=== PATIENT | female | born 1980 | race Caucasian/White ===

== ENCOUNTER 2017-09-05 16:17 | Inpatient (IN) | payer OTHER ==
[2017-09-05 17:23] VITALS: BMI 22.6
--- NOTE | 2017-09-05 18:57 | HP ---
CIWA Score - CIWA Score Nausea/Vomitin Muscle Tremors: 4-Moderate,w/Arms Extend Anxiety: 3 Agitation: 3 Paroxysmal Sweats: 1-Minimal Palms Moist Orientation: 0-Oriented Tacttile Disturbances: 0-None Auditory Disturbances: 0-None Visual Disturbances: 0-None Headache: 1-Very Mild CIWA-Ar Total Score: 14 Admission ROS S - HPI Chief Complaint: WITHDRAWAL SX Allergies/Adverse Reactions: Allergies Allergy/AdvReac Type Severity Reaction Status Date / Time No Known Allergies Allergy Verified 09/05/17 17:26 History of Present Illness: 37 YEARS OLD FEMALE WITH LONG HISTORY OF ALCOHOL, NICOTINE XANAX DEPENDENCE ON METHADONE 80 MG DAILY GERD AND DEPRESSION IS ADMITTED TO DETOX Exam Limitations: No Limitations - Ebola screening Have you traveled outside of the country in the last 21 days: No Have you had contact with anyone from an Ebola affected area: No Have you been sick,other than usual withdrawal symptoms: No Do you have a fever: No - Review of Systems Constitutional: Loss of Appetite, Changes in sleep, Unintentional Wgt. Loss EENT: reports: No Symptoms Reported Respiratory: reports: No Symptoms reported Cardiac: reports: No Symptoms Reported GI: reports: Nausea, Poor Appetite, Poor Fluid Intake, Vomiting, Indigestion, Abdominal cramping : reports: No Symptoms Reported Musculoskeletal: reports: No Symptoms Reported Integumentary: reports: No Symptoms Reported Neuro: reports: Tremors Endocrine: reports: No Symptoms Reported Hematology: reports: No Symptoms Reported Psychiatric: reports: Judgement Intact, Orientated x3, Anxious, Depressed Other Systems: Reviewed and Negative Patient History - Patient Medical History Hx Anemia: No Hx Asthma: No Hx Chronic Obstructive Pulmonary Disease (COPD): No Hx Cancer: No Hx Cardiac Disorders: No Hx Congestive Heart Failure: No Hx Hypertension: No Hx Hypercholesterolemia: No Hx Pacemaker: No HX Cerebrovascular Accident: No Hx Seizures: No Hx Dementia: No Hx Diabetes: No Hx Gastrointestinal Disorders: Yes Hx Liver Disease: No Hx Genitourinary Disorders: No Hx Sexually Transmitted Disorders: No Hx Renal Disease (ESRD): No Hx Thyroid Disease: No Hx Human Immunodeficiency Virus (HIV): No Hx Hepatitis C: Yes Hx Depression: Yes Hx Suicide Attempt: No Hx Bipolar Disorder: No Hx Schizophrenia: No - Patient Surgical History Past Surgical History: Yes Hx Neurologic Surgery: No Hx Cataract Extraction: No Hx Cardiac Surgery: No Hx Lung Surgery: No Hx Breast Surgery: No Hx Breast Biopsy: No Hx Abdominal Surgery: Yes (03/2017 ) Hx Appendectomy: No Hx Cholecystectomy: Yes Hx Genitourinary Surgery: No Hx Section: No Hx Orthopedic Surgery: No Hx Hysterectomy: No Anesthesia Reaction: No - PPD History Previous Implant?: Yes Documented Results: Negative w/o proof Implanted On Prior [facility] Admission?: No PPD to be Administered?: Yes - Reproductive History Patient is a Female of Child Bearing Age (11 -55 yrs old): Yes Last Menstrual Period: 08/17/17 Patient : No - Smoking Cessation Smoking history: Current every day smoker Have you smoked in the past 12 months: Yes Aproximately how many cigarettes per day: 20 Cigars Per Day: 0 Hx Chewing Tobacco Use: No Initiated information on smoking cessation: Yes 'Breaking Loose' booklet given: 09/05/17 - Substance & Tx. History Hx Alcohol Use: Yes Hx Substance Use: Yes Substance Use Type: Alcohol, Cocaine, Heroin Hx Substance Use Treatment: Yes (06/2017 [facility]) - Substances Abused Alcohol Route: Oral Frequency: Daily Amount used: liquor- 1 pint, beer- 2 six packs Age of first use: 16 Date of Last Use: 09/05/17 Alprazolam (Xanax) Route: Oral Frequency: Daily Amount used: 6mg Age of first use: 30 Date of Last Use: 09/05/17 Family Disease History - Family Disease History Family Disease History: Other: Sister (NO SISTER) Admission Physical Exam BHS - Vital Signs Vital Signs: Vital Signs - 24 hr 09/05/17 17:20 Temperature 97.4 F L Pulse Rate 184 H Respiratory 20 Rate Blood Pressure 134/80 - Physical General Appearance: Yes: Appropriately Dressed, Mild Distress, Thin, Tremorous, Irritable, Sweating, Anxious HEENTM: Yes: Hearing grossly Normal, Normal ENT Inspection, Normocephalic, Normal Voice Respiratory: Yes: Chest Non-Tender, Lungs Clear, Normal Breath Sounds, No Respiratory Distress, No Accessory Muscle Use Neck: Yes: Supple, Trachea in good position Breast: Yes: Breasts Symetrical Cardiology: Yes: Regular Rhythm, Regular Rate, S1, S2 Abdominal: Yes: Non Tender, Soft, Increased Bowel Sounds Genitourinary: Yes: Within Normal Limits Back: Yes: Normal Inspection Musculoskeletal: Yes: full range of Motion, Gait Steady Extremities: Yes: Normal Range of Motion, Non-Tender, Tremors Neurological: Yes: Fully Oriented, Alert, Motor Strength 5/5, Normal Response, Depressed Affect Integumentary: Yes: Warm, Track Valentino Lymphatic: Yes: Within Normal Limits - Diagnostic (1) Alcohol dependence with uncomplicated withdrawal Current Visit: Yes Status: Acute (2) Methadone maintenance therapy patient Current Visit: Yes Status: Chronic Comment: 80 MG VERIFICATION PENDING (3) Chronic pain Current Visit: Yes Status: Chronic Qualifiers: Chronic pain type: due to trauma Qualified Code(s): G89.21 - Chronic pain due to trauma (4) Nicotine dependence Current Visit: Yes Status: Acute Qualifiers: Nicotine product type: cigarettes Substance use status: in withdrawal Qualified Code(s): F17.213 - Nicotine dependence, cigarettes, with withdrawal (5) GERD (gastroesophageal reflux disease) Current Visit: Yes Status: Chronic Qualifiers: Esophagitis presence: without esophagitis Qualified Code(s): K21.9 - Gastro -esophageal reflux disease without esophagitis (6) Weight loss Current Visit: Yes Status: Acute (7) Depression (emotion) Current Visit: Yes Status: Suspected Qualifiers: Depression Type: dysthymia Qualified Code(s): F34.1 - Dysthymic disorder (8) Sedative, hypnotic or anxiolytic dependence with withdrawal, uncomplicated Current Visit: Yes Status: Acute Cleared for Admission [facility] - Detox or Rehab [facility] Level of Care: Medically Managed Detox Regimen/Protocol: Librium [facility] Breath Alcohol Content Breath Alcohol Content: 0 Urine Pregancy Test - Result Urine Test Results: Negative- NO Line Present Urine Drug Screen - Results Drug Screen Negative: No Urine Drug Screen Results: SWETHA-Cocaine, MTD-Methadone, TCA-Tricyclic Antidepress
[2017-09-05] MEDS ORDERED: MAG HYDROX/AL HYDROX/SIMETH 30 ML UNIT-DOSE CUP PO PRN (19:00)
[2017-09-05] MEDS ORDERED: MENTHOL/PHENOL 1 EACH UD MM PRN (19:00)
[2017-09-05] MEDS ORDERED: MAGNESIUM HYDROX 2400MG/30ML ORAL SUSPENSION 30 ML CUP PO PRN (19:00)
[2017-09-05] MEDS ORDERED: MAGNESIUM CITRATE 300 ML BOTTLE PO PRN (19:00)
[2017-09-05] MEDS ORDERED: P-EPHED 60MG/TRIPROLIDI 2.5MG TABLET PO PRN (19:00)
[2017-09-05] MEDS: RANITIDINE HCL 150 MG TABLET (FP) PO SCH ×2 (20:20→22:21)
[2017-09-05] MEDS: chlordiazePOXIDE HCL 25 MG CAPSULE PO PRN (20:20)
[2017-09-05] MEDS ORDERED: hydrOXYzine PAMOATE 50 MG CAPSULE (FP) PO ONE (22:00)
[2017-09-05] MEDS: GABAPENTIN 400 MG CAPSULE (FP) PO SCH (22:20)
[2017-09-05] MEDS: chlordiazePOXIDE HCL 25 MG CAPSULE PO SCH (22:20)
[2017-09-05] MEDS: THIAMINE HCL 100 MG TABLET (FP) PO SCH (22:21)
[2017-09-05 23:44] LABS: URINE APPEARANCE SLCLOUDY; URINE BILIRUBIN NEGATIVE (NEGATIVE); URINE BLOOD NEGATIVE (NEGATIVE); URINE COLOR DKYELLOW; URINE GLUCOSE (UA) NEGATIVE (NEGATIVE); URINE KETONE TRACE (NEGATIVE); URINE NITRITE NEGATIVE (NEGATIVE); URINE PROTEIN NEGATIVE (NEGATIVE); URINE UROBILINOGEN 4.0 E.U/dl mg/dL (0.2-1.0)
[2017-09-06] MEDS: chlordiazePOXIDE HCL 25 MG CAPSULE PO PRN ×2 (02:49→14:36)
[2017-09-06] MEDS: LOPERAMIDE HCL 2 MG CAPSULE PO PRN ×2 (05:43→13:19)
[2017-09-06] MEDS: GABAPENTIN 400 MG CAPSULE (FP) PO SCH ×3 (05:45→22:09)
[2017-09-06] MEDS: chlordiazePOXIDE HCL 25 MG CAPSULE PO SCH ×4 (05:45→22:09)
[2017-09-06] MEDS: METHADONE HCL 40 MG DISPERSABLE TABLET PO SCH (07:53)
[2017-09-06] MEDS: guaiFENesin/D-METHORPHAN HB 10 ML UNIT-DOSE CUPS PO PRN (08:50)
[2017-09-06 10:11] LABS: MCH 23.9 pg (25.7-33.7); MCHC 31.5 g/dl (32.0-36.0); MEAN CELL VOLUME 75.7 fl (80-96); MEAN PLT VOLUME 8.2 fl (7.5-11.1); PLATELET COUNT 225 K/MM3 (134-434); RDW 20.5 % (11.6-15.6); WHITE BLOOD COUNT 4.6 K/mm3 (4.0-10.0)
[2017-09-06 10:17] LABS: ALBUMIN 2.6 g/dl (3.4-5.0); ANION GAP 6 (8-16); BILIRUBIN,TOTAL 0.4 mg/dL (0.2-1.0); CALCIUM 7.4 mg/dL (8.5-10.1); CO2 25 mmol/L (21-32); CREATININE 0.7 mg/dL (0.55-1.02); GLUCOSE,RANDOM 69 mg/dL (74-106); SGOT/AST 59 U/L (15-37); SGPT/ALT 49 U/L (12-78); TOT PROT 6.2 g/dl (6.4-8.2)
[2017-09-06 10:18] LABS: ALK PHOS 136 U/L (45-117)
--- NOTE | 2017-09-06 10:18 | EKG ---
Test Reason : Blood Pressure : / mmHG Vent. Rate : 080 BPM Atrial Rate : 080 BPM P-R Int : 142 ms QRS Dur : 072 ms QT Int : 406 ms P-R-T Axes : 017 032 015 degrees QTc Int : 468 ms NORMAL SINUS RHYTHM NORMAL ECG NO PREVIOUS ECGS AVAILABLE Confirmed by KELLY TOSCANO, CESAR ([id number]) on 09/06/2017 10:18:27 AM Referred By: Confirmed By:CESAR MENDOZA MD
--- NOTE | 2017-09-06 10:45 | PN ---
[facility] CIWA - CIWA Score Nausea/Vomitin-No Nausea/No Vomiting Muscle Tremors: 4-Moderate,w/Arms Extend Anxiety: 3 Agitation: 3 Paroxysmal Sweats: 3 Orientation: 0-Oriented Tacttile Disturbances: 0-None Auditory Disturbances: 0-None Visual Disturbances: 0-None Headache: 1-Very Mild CIWA-Ar Total Score: 14 S Progress Note (SOAP) Subjective: irritable agitation anxiety sweats nausea interrupted sleep Objective: 09/06/17 10:43 Vital Signs Temperature 98.6 F 09/06/17 06:00 Pulse Rate 98 H 09/06/17 06:00 Respiratory Rate 16 09/06/17 06:00 Blood Pressure 116/79 09/06/17 06:00 O2 Sat by Pulse Oximetry (%) Laboratory Tests 09/05/17 09/06/17 09/06/17 23:30 07:00 07:00 WBC 4.6 RBC 4.05 Hgb 9.7 L Hct 30.7 L MCV 75.7 L MCH 23.9 L MCHC 31.5 L RDW 20.5 H Plt Count 225 MPV 8.2 Sodium 137 Potassium 4.0 Chloride 106 Carbon Dioxide 25 Anion Gap 6 L BUN 9 Creatinine 0.7 Creat Clearance w eGFR > 60 Random Glucose 69 L Calcium 7.4 L Total Bilirubin 0.4 AST 59 H ALT 49 Alkaline Phosphatase 136 H Total Protein 6.2 L Albumin 2.6 L Urine Color Dkyellow Urine Appearance Slcloudy Urine pH 6.0 Ur Specific [place] 1.018 Urine Protein Negative Urine Glucose (UA) Negative Urine Ketones Trace H Urine Blood Negative Urine Nitrite Negative Urine Bilirubin Negative Urine Urobilinogen 4.0 e.u/dl H aaox3 ambulating no acute distress Assessment: 09/06/17 10:44 withdrawal sx Plan: continue detox increase fluids zofran sl prn
[2017-09-06] MEDS: RANITIDINE HCL 150 MG TABLET (FP) PO SCH ×2 (11:04→22:10)
[2017-09-06] MEDS: PRENATAL VITAMINS W/ FOLIC ACID TABLET (FP) PO SCH (11:04)
[2017-09-06] MEDS: NICOTINE 21 MG/24 HOURS TOPICAL PATCH TD SCH (11:04)
[2017-09-06 11:40] LABS: URINE LEUK ESTERASE Negative (NEGATIVE)
[2017-09-06] MEDS: ONDANSETRON *ODT* 4 MG TABLET SL PRN ×2 (12:20→22:10)
--- NOTE | 2017-09-06 15:54 | CONSULT ---
[facility] Psychiatric Consult - Data Date of interview: 09/06/17 Admission source: [facility] Identifying data: First admission to [facility] for this 37 y/o female seeking detox treatment on for alcohol,xanax,cocaine and heroin dependence.Patient is single,mother of one,homeless,unemployed and deprived of any source of income. Substance Abuse History: Discussed in this session.Patient admits to active use of xanax,heroin,cocaine and alcoho as detailed in the [facility] report.Details as follws : Smoking history: Current every day smoker. Have you smoked in the past 12 months: Yes. Aproximately how many cigarettes per day: 20. Cigars Per Day: 0. Hx Chewing Tobacco Use: No. Initiated information on smoking cessation : Yes. 'Breaking Loose' booklet given: 09/05/17. - Substance & Tx. History. Hx Alcohol Use: Yes. Hx Substance Use: Yes. Substance Use Type: Alcohol, Cocaine, Heroin. Hx Substance Use Treatment: Yes ([facility] - Substances Abused. Alcohol. Route: Oral. Frequency: Daily. Amount used: liquor- 1 pint, beer- 2 six packs. Age of first use: 16. Date of Last Use: . Alprazolam (Xanax). Route: Oral. Frequency: Daily. Amount used: 6mg. Age of first use: 30. Date of Last Use: 09/05/17 Medical History: Consistent with GERD,hepatitis C and a past history of abdominal surgery. Psychiatric History: Patient admits to a history of multiple psychiatric hospitalizations ([facility]).Diagnosed with Bipolar Disorder as per self-report.Prescribed celexa 40 mg/day + seroquel 300 mg/hs.Non-adherent with OPD care.Ms Paz declares that she has NOT taken her medications for more than three weeks." I am homeless and I keep on bouncing from place to place." No affiliation with outpatient mental healthcare providers." They referred me to someone.I never went." Patient denies history of suicide attempts.Currently on methadone maintenance (80 mg/day). Physical/Sexual Abuse/Trauma History: Domain not discussed in this session. Additional Comment: Urine Drug Screen Results: SWETHA-Cocaine, MTD-Methadone, TCA- Tricyclic Antidepressant.Noted. Mental Status Exam - Mental Status Exam Alert and Oriented to: Time, Place, Person Cognitive Function: Good Patient Appearance: Well Groomed (appears stated age) Mood: Nervous, Anxious Affect: Mood Congruent Patient Behavior: Fatigued, Cooperative (medication-seeking) Speech Pattern: Clear, Appropriate Voice Loudness: Normal Thought Process: Goal Oriented Thought Disorder: Not Present Hallucinations: Denies Suicidal Ideation: Denies Homicidal Ideation: Denies Insight/Judgement: Poor Sleep: Poorly, Difficulty falling asleep Appetite: Good Muscle strength/Tone: Normal Gait/Station: Normal Psychiatric Findings - Problem List ([place] 1, 2,3) (1) Alcohol dependence with uncomplicated withdrawal Current Visit: Yes Status: Acute (2) Opioid dependence on agonist therapy Current Visit: Yes Status: Acute (3) Nicotine dependence Current Visit: Yes Status: Acute Qualifiers: Nicotine product type: cigarettes Substance use status: uncomplicated Qualified Code(s): F17.210 - Nicotine dependence, cigarettes, uncomplicated (4) Cocaine dependence Current Visit: Yes Status: Acute (5) Substance induced mood disorder Current Visit: Yes Status: Acute (6) Bipolar disorder Current Visit: Yes Status: Chronic Comment: As per self-report.On medications.Non-compliant with OPD care. (7) Insomnia Current Visit: Yes Status: Acute - Initial Treatment Plan Initial Treatment Plan: Psychoeducation.Sleep hygiene.Detoxification in progress.Medications discussed.Will NOT restart citalopram (non-adherence for weeks and potential for rapid cycling).Seroquel 150 mg po hs.To be gradually titrated to 300 mg in next 48-72 hours according to clinical response.Side effects/benefits reviewed with the patient.Made aware of potential for oversedation/falls,metabolic syndrome,cardiovascular adverse events and abnormal involuntary movements.Patient agrees,verbally,to follow this plan of care.Observation.Pharmacy claims are reviewed : noted scripts for seroquel 300 mg tab # 15 and citalopram 40 mg issued on 08/15/17 (not taken according to patient).
[2017-09-06] MEDS ORDERED: DIPHENOXYLATE 2.5/ATROPINE.025 1 COMBO TABLET PO PRN (17:10)
[2017-09-06] MEDS ORDERED: DIPHENOXYLATE 2.5/ATROPINE.025 1 COMBO TABLET PO ONE (17:30)
[2017-09-06] MEDS: THIAMINE HCL 100 MG TABLET (FP) PO SCH (22:10)
[2017-09-06] MEDS: QUEtiapine FUMARATE 50 MG TABLET PO SCH (22:10)
[2017-09-07] MEDS: chlordiazePOXIDE HCL 25 MG CAPSULE PO SCH ×3 (05:34→17:11)
[2017-09-07] MEDS: METHADONE HCL 40 MG DISPERSABLE TABLET PO SCH (05:35)
[2017-09-07] MEDS: GABAPENTIN 400 MG CAPSULE (FP) PO SCH ×3 (05:35→22:20)
[2017-09-07] MEDS: guaiFENesin/D-METHORPHAN HB 10 ML UNIT-DOSE CUPS PO PRN (10:46)
[2017-09-07] MEDS: RANITIDINE HCL 150 MG TABLET (FP) PO SCH ×2 (10:46→22:20)
[2017-09-07] MEDS: NICOTINE 21 MG/24 HOURS TOPICAL PATCH TD SCH (10:46)
[2017-09-07] MEDS: PRENATAL VITAMINS W/ FOLIC ACID TABLET (FP) PO SCH (10:46)
--- NOTE | 2017-09-07 13:21 | PN ---
S CIWA - CIWA Score Nausea/Vomitin-No Nausea/No Vomiting Muscle Tremors: 4-Moderate,w/Arms Extend Anxiety: 3 Agitation: 3 Paroxysmal Sweats: 3 Orientation: 0-Oriented Tacttile Disturbances: 0-None Auditory Disturbances: 0-None Visual Disturbances: 0-None Headache: 0-None Present CIWA-Ar Total Score: 13 BHS Progress Note (SOAP) Subjective: coughing sweats irritable agitation Objective: 09/07/17 13:20 Vital Signs Temperature 97.7 F 09/07/17 10:00 Pulse Rate 93 H 09/07/17 10:00 Respiratory Rate 18 09/07/17 10:00 Blood Pressure 134/95 09/07/17 10:00 O2 Sat by Pulse Oximetry (%) Laboratory Tests 09/05/17 09/06/17 09/06/17 23:30 07:00 07:00 WBC 4.6 RBC 4.05 Hgb 9.7 L Hct 30.7 L MCV 75.7 L MCH 23.9 L MCHC 31.5 L RDW 20.5 H Plt Count 225 MPV 8.2 Sodium 137 Potassium 4.0 Chloride 106 Carbon Dioxide 25 Anion Gap 6 L BUN 9 Creatinine 0.7 Creat Clearance w eGFR > 60 Random Glucose 69 L Calcium 7.4 L Total Bilirubin 0.4 AST 59 H ALT 49 Alkaline Phosphatase 136 H Total Protein 6.2 L Albumin 2.6 L Urine Color Dkyellow Urine Appearance Slcloudy Urine pH 6.0 Ur Specific [place] 1.018 Urine Protein Negative Urine Glucose (UA) Negative Urine Ketones Trace H Urine Blood Negative Urine Nitrite Negative Urine Bilirubin Negative Urine Urobilinogen 4.0 e.u/dl H Ur Leukocyte Esterase Negative RPR Titer 09/06/17 07:00 WBC RBC Hgb Hct MCV MCH MCHC RDW Plt Count MPV Sodium Potassium Chloride Carbon Dioxide Anion Gap BUN Creatinine Creat Clearance w eGFR Random Glucose Calcium Total Bilirubin AST ALT Alkaline Phosphatase Total Protein Albumin Urine Color Urine Appearance Urine pH Ur Specific [place] Urine Protein Urine Glucose (UA) Urine Ketones Urine Blood Urine Nitrite Urine Bilirubin Urine Urobilinogen Ur Leukocyte Esterase RPR Titer Nonreactive aaox3 ambulating no acute distress Assessment: 09/07/17 13:20 withdrawal sx Plan: continue detox increase fluids robitussin prn visitril prn
[2017-09-07] MEDS: chlordiazePOXIDE HCL 25 MG CAPSULE PO PRN (14:19)
[2017-09-07] MEDS: ONDANSETRON *ODT* 4 MG TABLET SL PRN (15:13)
[2017-09-07] MEDS: hydrOXYzine PAMOATE 25 MG CAPSULE (FP) PO PRN ×2 (15:13→19:25)
[2017-09-07] MEDS: NICOTINE POLACRILEX 4 MG GUM BC PRN (15:13)
[2017-09-07] MEDS: chlordiazePOXIDE 5 MG CAPSULE PO SCH (22:20)
[2017-09-07] MEDS: QUEtiapine FUMARATE 50 MG TABLET PO SCH (22:20)
[2017-09-07] MEDS: THIAMINE HCL 100 MG TABLET (FP) PO SCH (22:20)
[2017-09-08] MEDS: METHADONE HCL 40 MG DISPERSABLE TABLET PO SCH (05:17)
[2017-09-08] MEDS: GABAPENTIN 400 MG CAPSULE (FP) PO SCH ×3 (05:17→22:21)
[2017-09-08] MEDS: chlordiazePOXIDE 5 MG CAPSULE PO SCH ×3 (05:17→17:20)
[2017-09-08] MEDS: guaiFENesin/D-METHORPHAN HB 10 ML UNIT-DOSE CUPS PO PRN (06:31)
[2017-09-08] MEDS: RANITIDINE HCL 150 MG TABLET (FP) PO SCH ×2 (10:20→22:21)
[2017-09-08] MEDS: PRENATAL VITAMINS W/ FOLIC ACID TABLET (FP) PO SCH (10:20)
[2017-09-08] MEDS: NICOTINE 21 MG/24 HOURS TOPICAL PATCH TD SCH (10:22)
[2017-09-08] MEDS: ACETAMINOPHEN 325 MG TABLET (FP) PO PRN ×2 (10:44→19:33)
[2017-09-08] MEDS: hydrOXYzine PAMOATE 25 MG CAPSULE (FP) PO PRN ×3 (12:51→22:23)
--- NOTE | 2017-09-08 13:13 | PN ---
BHS Progress Note (SOAP) Subjective: sweats interrupted sleep Objective: 09/08/17 13:12 Vital Signs Temperature 97.2 F L 09/08/17 09:33 Pulse Rate 91 H 09/08/17 09:33 Respiratory Rate 18 09/08/17 09:33 Blood Pressure 98/51 09/08/17 09:33 O2 Sat by Pulse Oximetry (%) aaox3 ambulating no acute distress Assessment: 09/08/17 13:12 withdrawal sx Plan: continue detox increase fluids d/c in am
[2017-09-08] MEDS: NICOTINE POLACRILEX 4 MG GUM BC PRN (19:31)
[2017-09-08] MEDS: THIAMINE HCL 100 MG TABLET (FP) PO SCH (22:21)
[2017-09-08] MEDS: QUEtiapine FUMARATE 50 MG TABLET PO SCH (22:21)
[2017-09-08] MEDS: chlordiazePOXIDE HCL 10 MG CAPSULE PO SCH (22:21)
[2017-09-09] MEDS: chlordiazePOXIDE HCL 10 MG CAPSULE PO SCH ×2 (05:14→10:13)
[2017-09-09] MEDS: METHADONE HCL 40 MG DISPERSABLE TABLET PO SCH (05:14)
[2017-09-09] MEDS: GABAPENTIN 400 MG CAPSULE (FP) PO SCH (05:14)
[2017-09-09] MEDS: PRENATAL VITAMINS W/ FOLIC ACID TABLET (FP) PO SCH (09:24)
[2017-09-09] MEDS: RANITIDINE HCL 150 MG TABLET (FP) PO SCH (09:24)
[2017-09-09] MEDS: NICOTINE 21 MG/24 HOURS TOPICAL PATCH TD SCH (09:24)
[2017-09-09 10:06] VITALS: BP 115/58; PULSE 92; TEMP 98.2
[2017-09-09] MEDS: hydrOXYzine PAMOATE 25 MG CAPSULE (FP) PO PRN (10:12)
[2017-09-09] MEDS ORDERED: FERROUS SO4 325 MG TABLET (FP) PO SCH (12:00)
[2017-09-09] MEDS ORDERED: DOCUSATE SODIUM 100 MG CAPSULE (FP) PO SCH (22:00)
== END 2017-09-09 11:45 | disposition home or self-care (01) | DRG 773 ==
LOC: YASAS 16:17 → Y6N 18:52
PROVIDERS: ADMIT Internal Medicine; ATTEND Internal Medicine
PROC: HZ2ZZZZ Detoxification Services for Substance Abuse Treatment (ICD-10-PCS; principal; 2017-09-05)
DX: F11.20 Opioid dependence, uncomplicated (principal); F13.230 Sedative, hypnotic or anxiolytic dependence with withdrawal, uncomplicated; F10.230 Alcohol dependence with withdrawal, uncomplicated; F14.20 Cocaine dependence, uncomplicated; F17.210 Nicotine dependence, cigarettes, uncomplicated; F19.24 Other psychoactive substance dependence with psychoactive substance-induced mood disorder; F34.1 Dysthymic disorder; F31.89 Other bipolar disorder; G47.00 Insomnia, unspecified; R63.4 Abnormal weight loss; Z68.22 Body mass index [BMI] 22.0-22.9, adult; Z90.49 Acquired absence of other specified parts of digestive tract
CPT/HCPCS: 36415; 80053; 81003; 85027; 86593; 93005; 93010

== ENCOUNTER 2017-11-14 19:32 | Inpatient (IN) | payer BC, OTHER ==
[2017-11-14 20:24] VITALS: BMI 21.7
--- NOTE | 2017-11-14 22:56 | HP ---
CIWA Score - CIWA Score Nausea/Vomitin Muscle Tremors: 3 Anxiety: 3 Agitation: 1-Slight > Activity Paroxysmal Sweats: 2 Orientation: 0-Oriented Tacttile Disturbances: 1-Very Mild Itch/Numbness Auditory Disturbances: 0-None Visual Disturbances: 1-Very Mild Sensitivity Headache: 0-None Present CIWA-Ar Total Score: 14 Admission [facility] Chief Complaint: withdrawal symptoms Allergies/Adverse Reactions: Allergies Allergy/AdvReac Type Severity Reaction Status Date / Time No Known Allergies Allergy Verified 11/14/17 21:13 History of Present Illness: 37 yo female with hx of Klonopin, Xanax, Cocaine, nicotine and opiod dependence. Reports smoking cigarettes since age 15, currently smokes 1 pack per day. Patient currently attends out patient Methadone maintenance program at [facility] [address], currently on 80 mg of Methadone, last medicated 11/14/17. PMHX : chronic pain, gastric bypass, haital hernia repair , bowel obstruction, depression, and anxiety. Denies suicidal / homicidal ideation or suicide attempts. Last detox August 2017 at [facility]. Exam Limitations: No Limitations - Ebola screening Have you traveled outside of the country in the last 21 days: No Have you had contact with anyone from an Ebola affected area: No Have you been sick,other than usual withdrawal symptoms: No Do you have a fever: Yes - Review of Systems Constitutional: Chills, Changes in sleep EENT: reports: No Symptoms Reported Respiratory: reports: No Symptoms reported Cardiac: reports: No Symptoms Reported GI: reports: Nausea, Poor Fluid Intake, Indigestion : reports: No Symptoms Reported Musculoskeletal: reports: No Symptoms Reported Integumentary: reports: No Symptoms Reported Neuro: reports: Seizure (hx of seizure with Benzo withdrawal , last sezure 1 year ago) Endocrine: reports: Excessive Sweating, Increased Thirst Hematology: reports: Anemia (hx of blood transfusion) Psychiatric: reports: Orientated x3, Anxious Other Systems: Reviewed and Negative Patient History - Patient Medical History Hx Anemia: Yes Hx Asthma: No Hx Chronic Obstructive Pulmonary Disease (COPD): No Hx Cancer: No Hx Cardiac Disorders: No Hx Congestive Heart Failure: No Hx Hypertension: No Hx Hypercholesterolemia: No Hx Pacemaker: No HX Cerebrovascular Accident: No Hx Seizures: Yes (1 year ago with Benzo withdrawal ) Hx Dementia: No Hx Diabetes: No Hx Gastrointestinal Disorders: Yes Hx Liver Disease: No Hx Genitourinary Disorders: No Hx Sexually Transmitted Disorders: No Hx Renal Disease (ESRD): No Hx Thyroid Disease: No Hx Human Immunodeficiency Virus (HIV): No (Negative 2 months ago ) Hx Hepatitis C: Yes Hx Depression: Yes Hx Suicide Attempt: No Hx Bipolar Disorder: No Hx Schizophrenia: No - Patient Surgical History Past Surgical History: Yes Hx Neurologic Surgery: No Hx Cataract Extraction: No Hx Cardiac Surgery: No Hx Lung Surgery: No Hx Breast Surgery: No Hx Breast Biopsy: No Hx Abdominal Surgery: Yes (03/2017 . Gastric bypass 2005) Hx Appendectomy: No Hx Cholecystectomy: Yes Hx Genitourinary Surgery: No Hx Section: Yes (2007) Hx Orthopedic Surgery: No Hx Hysterectomy: No Anesthesia Reaction: No - PPD History Previous Implant?: Yes Documented Results: Negative w/proof Date: 09/07/17 PPD to be Administered?: No - Reproductive History Patient is a Female of Child Bearing Age (11 -55 yrs old): No Last Menstrual Period: 08/17/17 Patient : No - Smoking Cessation Smoking history: Current every day smoker Have you smoked in the past 12 months: Yes Aproximately how many cigarettes per day: 20 Cigars Per Day: 0 Hx Chewing Tobacco Use: No Initiated information on smoking cessation: Yes 'Breaking Loose' booklet given: 11/14/17 - Substance & Tx. History Hx Alcohol Use: Yes Hx Substance Use: Yes Substance Use Type: Alcohol, Opiates, Tranquilizers Hx Substance Use Treatment: Yes - Substances Abused Alcohol Route: Oral Frequency: Daily Amount used: BEER- 2 SIX PACKS Age of first use: 16 Date of Last Use: 11/14/17 Family Disease History - Family Disease History Family Disease History: Other: Father (alive and well ), Mother (alive and well) , Sister (NO SISTER) Admission Physical Exam BHS - Vital Signs Vital Signs: Vital Signs - 24 hr 11/14/17 20:09 Temperature 97.7 F Pulse Rate 95 H Respiratory 18 Rate Blood Pressure 147/99 - Physical General Appearance: Yes: Disheveled, Tremorous, Sweating, Anxious HEENTM: Yes: EOMI, Hearing grossly Normal, Normal ENT Inspection, Normocephalic , Normal Voice, Pharynx Normal, Tm's normal, Other (poor dentation) Respiratory: Yes: Chest Non-Tender, Lungs Clear, Normal Breath Sounds, No Respiratory Distress, No Accessory Muscle Use Neck: Yes: Within Normal Limits, No masses,lesions,Nodules, Trachea in good position Breast: Yes: Breast Exam Deferred Cardiology: Yes: Within Normal Limits, Regular Rhythm, Regular Rate, S1, S2 Abdominal: Yes: Non Tender, Soft, Increased Bowel Sounds, Protuberent, Surgical Scar Genitourinary: Yes: Within Normal Limits (reports no urinary symptoms) Back: Yes: Normal Inspection Musculoskeletal: Yes: Within Normal Limits, full range of Motion, Gait Steady, Pelvis Stable Extremities: Yes: Within Normal Limits, Normal Capillary Refill, Normal Inspection Neurological: Yes: Fully Oriented, Alert, Motor Strength 5/5, Normal Response, Depressed Affect Integumentary: Yes: Normal Color, Dry, Warm, Other (poor skin turgor) Lymphatic: Yes: Within Normal Limits - Diagnostic (1) Alcohol dependence with uncomplicated withdrawal Current Visit: Yes Status: Acute (2) Cocaine dependence Current Visit: Yes Status: Chronic (3) Insomnia Current Visit: Yes Status: Chronic (4) Nicotine dependence Current Visit: Yes Status: Acute Qualifiers: Nicotine product type: cigarettes Substance use status: uncomplicated Qualified Code(s): F17.210 - Nicotine dependence, cigarettes, uncomplicated (5) Sedative, hypnotic or anxiolytic dependence with withdrawal, uncomplicated Current Visit: Yes Status: Chronic (6) Chronic pain Current Visit: Yes Status: Chronic Qualifiers: Chronic pain type: due to trauma Qualified Code(s): G89.21 - Chronic pain due to trauma (7) GERD (gastroesophageal reflux disease) Current Visit: Yes Status: Chronic Qualifiers: Esophagitis presence: without esophagitis Qualified Code(s): K21.9 - Gastro -esophageal reflux disease without esophagitis (8) Methadone maintenance therapy patient Current Visit: Yes Status: Chronic Comment: 80 MG VERIFICATION PENDING (9) Depression (emotion) Current Visit: Yes Status: Acute Qualifiers: Depression Type: dysthymia Qualified Code(s): F34.1 - Dysthymic disorder Cleared for Admission [facility] - Detox or Rehab [facility] Level of Care: Medically Managed Detox Regimen/Protocol: Librium [facility] Breath Alcohol Content Breath Alcohol Content: 0.165 Urine Pregancy Test - Result Urine Test Results: Negative- NO Line Present Urine Drug Screen - Results Drug Screen Negative: No Urine Drug Screen Results: SWETHA-Cocaine, MTD-Methadone
[2017-11-14] MEDS ORDERED: LOPERAMIDE HCL 2 MG CAPSULE PO PRN (23:07)
[2017-11-14] MEDS ORDERED: IBUPROFEN 400 MG TABLET (FP) PO PRN (23:07)
[2017-11-14] MEDS ORDERED: MAGNESIUM CITRATE 300 ML BOTTLE PO PRN (23:07)
[2017-11-14] MEDS ORDERED: P-EPHED 60MG/TRIPROLIDI 2.5MG TABLET PO PRN (23:07)
[2017-11-14] MEDS ORDERED: guaiFENesin/D-METHORPHAN HB 10 ML UNIT-DOSE CUPS PO PRN (23:07)
[2017-11-14] MEDS ORDERED: ACETAMINOPHEN 325 MG TABLET (FP) PO PRN (23:07)
[2017-11-14] MEDS ORDERED: MENTHOL/PHENOL 1 EACH UD MM PRN (23:07)
[2017-11-14] MEDS ORDERED: MAG HYDROX/AL HYDROX/SIMETH 30 ML UNIT-DOSE CUP PO PRN (23:07)
[2017-11-14] MEDS: chlordiazePOXIDE HCL 25 MG CAPSULE PO SCH (23:53)
[2017-11-15] MEDS: chlordiazePOXIDE HCL 25 MG CAPSULE PO SCH ×4 (05:36→22:19)
[2017-11-15] MEDS: GABAPENTIN 400 MG CAPSULE (FP) PO SCH ×3 (05:36→22:19)
[2017-11-15] MEDS: METHADONE HCL 40 MG DISPERSABLE TABLET PO SCH (08:04)
--- NOTE | 2017-11-15 09:08 | EKG ---
Test Reason : Blood Pressure : / mmHG Vent. Rate : 094 BPM Atrial Rate : 094 BPM P-R Int : 158 ms QRS Dur : 080 ms QT Int : 380 ms P-R-T Axes : 034 045 029 degrees QTc Int : 475 ms NORMAL SINUS RHYTHM NONSPECIFIC ST AND T WAVE ABNORMALITY PROLONGED QT ABNORMAL ECG WHEN COMPARED WITH ECG OF 05-SEP-2017 20:28, NO SIGNIFICANT CHANGE WAS FOUND Confirmed by James Malhotra ([id number]) on 11/15/2017 9:07:51 AM Referred By: Confirmed By:James Malhotra
--- NOTE | 2017-11-15 09:19 | PN ---
BHS CIWA - CIWA Score Nausea/Vomitin-Mild Nausea/No Vomiting Muscle Tremors: 4-Moderate,w/Arms Extend Anxiety: 3 Agitation: 3 Paroxysmal Sweats: 1-Minimal Palms Moist Orientation: 0-Oriented Tacttile Disturbances: 0-None Auditory Disturbances: 0-None Visual Disturbances: 0-None Headache: 0-None Present CIWA-Ar Total Score: 12 BHS Progress Note (SOAP) Subjective: sweat GI upset tremor anxiety restlessness Objective: 11/15/17 09:19 Vital Signs Temperature 98.2 F 11/15/17 06:00 Pulse Rate 94 H 11/15/17 06:00 Respiratory Rate 18 11/15/17 06:00 Blood Pressure 120/71 11/15/17 06:00 O2 Sat by Pulse Oximetry (%) lab not available Assessment: 11/15/17 09:19 withdrawal sx Plan: continue detox
[2017-11-15 10:20] LABS: HEMATOCRIT 30.1 % (32.4-45.2); HEMOGLOBIN 9.1 GM/dL (10.7-15.3); MCH 22.3 pg (25.7-33.7); MCHC 30.2 g/dl (32.0-36.0); MEAN CELL VOLUME 73.7 fl (80-96); MEAN PLT VOLUME 8.1 fl (7.5-11.1); PLATELET COUNT 169 K/MM3 (134-434); RBC 4.08 M/mm3 (3.60-5.2); RDW 22.3 % (11.6-15.6); WHITE BLOOD COUNT 3.7 K/mm3 (4.0-10.0)
[2017-11-15 10:23] LABS: URINE APPEARANCE CLEAR; URINE BILIRUBIN NEGATIVE (NEGATIVE); URINE BLOOD NEGATIVE (NEGATIVE); URINE COLOR YELLOW; URINE GLUCOSE (UA) NEGATIVE (NEGATIVE); URINE KETONE NEGATIVE (NEGATIVE); URINE LEUK ESTERASE NEGATIVE (NEGATIVE); URINE NITRITE NEGATIVE (NEGATIVE); URINE PROTEIN NEGATIVE (NEGATIVE)
[2017-11-15 10:25] LABS: ALBUMIN 2.8 g/dl (3.4-5.0); ANION GAP 5 (8-16); BLOOD UREA NITROGEN 11 mg/dL (7-18); CALCIUM 8.1 mg/dL (8.5-10.1); CHLORIDE 105 mmol/L (98-107); CO2 30 mmol/L (21-32); GLUCOSE,RANDOM 74 mg/dL (74-106); POTASSIUM 4.5 mmol/L (3.5-5.1); SGOT/AST 47 U/L (15-37); SGPT/ALT 41 U/L (12-78); SODIUM 140 mmol/L (136-145)
[2017-11-15 10:27] LABS: ALK PHOS 109 U/L (45-117); BILIRUBIN,TOTAL 0.3 mg/dL (0.2-1.0); CREATININE 0.8 mg/dL (0.55-1.02); TOT PROT 6.2 g/dl (6.4-8.2)
[2017-11-15] MEDS: PANTOPRAZOLE 40 MG TABLET (FP) PO SCH (10:49)
[2017-11-15] MEDS: PRENATAL VITAMINS W/ FOLIC ACID TABLET (FP) PO SCH (10:49)
[2017-11-15] MEDS: NICOTINE 21 MG/24 HOURS TOPICAL PATCH TD SCH (10:49)
[2017-11-15] MEDS: CITALOPRAM HYDROBROMIDE 20 MG TABLET (FP) PO SCH (10:52)
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
[2017-11-15] MEDS: hydrOXYzine PAMOATE 50 MG CAPSULE (FP) PO PRN ×2 (15:31→22:19)
--- NOTE | 2017-11-15 17:35 | EKG ---
Test Reason : Blood Pressure : / mmHG Vent. Rate : 076 BPM Atrial Rate : 076 BPM P-R Int : 142 ms QRS Dur : 080 ms QT Int : 420 ms P-R-T Axes : 026 051 025 degrees QTc Int : 472 ms NORMAL SINUS RHYTHM NORMAL ECG WHEN COMPARED WITH ECG OF 15-NOV-2017 00:09, NO SIGNIFICANT CHANGE WAS FOUND Confirmed by James Malhotra ([id number]) on 11/15/2017 5:34:42 PM Referred By: Confirmed By:James Malhotra
[2017-11-15] MEDS: THIAMINE HCL 100 MG TABLET (FP) PO SCH (22:19)
[2017-11-15] MEDS: QUEtiapine FUMARATE 50 MG TABLET PO SCH (22:19)
[2017-11-16] MEDS: METHADONE HCL 40 MG DISPERSABLE TABLET PO SCH (07:08)
[2017-11-16] MEDS: chlordiazePOXIDE HCL 25 MG CAPSULE PO SCH ×3 (07:08→16:27)
[2017-11-16] MEDS: GABAPENTIN 400 MG CAPSULE (FP) PO SCH ×3 (07:08→22:20)
--- NOTE | 2017-11-16 09:11 | PN ---
[facility] CIWA - CIWA Score Nausea/Vomitin-No Nausea/No Vomiting Muscle Tremors: 3 Anxiety: 3 Agitation: 2 Paroxysmal Sweats: 1-Minimal Palms Moist Orientation: 0-Oriented Tacttile Disturbances: 0-None Auditory Disturbances: 0-None Visual Disturbances: 0-None Headache: 0-None Present CIWA-Ar Total Score: 9 BHS Progress Note (SOAP) Subjective: sweat tremor anxiety Objective: 11/16/17 09:10 Vital Signs Temperature 97.1 F L 11/16/17 06:26 Pulse Rate 74 11/16/17 06:26 Respiratory Rate 18 11/16/17 06:26 Blood Pressure 110/69 11/16/17 06:26 O2 Sat by Pulse Oximetry (%) Laboratory Last Values WBC 3.7 K/mm3 (4.0-10.0) L 11/15/17 07:00 RBC 4.08 M/mm3 (3.60-5.2) 11/15/17 07:00 Hgb 9.1 GM/dL (10.7-15.3) L 11/15/17 07:00 Hct 30.1 % (32.4-45.2) L 11/15/17 07:00 MCV 73.7 fl (80-96) L 11/15/17 07:00 MCH 22.3 pg (25.7-33.7) L 11/15/17 07:00 MCHC 30.2 g/dl (32.0-36.0) L 11/15/17 07:00 RDW 22.3 % (11.6-15.6) H 11/15/17 07:00 Plt Count 169 K/MM3 (134-434) D 11/15/17 07:00 MPV 8.1 fl (7.5-11.1) 11/15/17 07:00 Sodium 140 mmol/L (136-145) 11/15/17 07:00 Potassium 4.5 mmol/L (3.5-5.1) 11/15/17 07:00 Chloride 105 mmol/L (98-107) 11/15/17 07:00 Carbon Dioxide 30 mmol/L (21-32) 11/15/17 07:00 Anion Gap 5 (8-16) L 11/15/17 07:00 BUN 11 mg/dL (7-18) 11/15/17 07:00 Creatinine 0.8 mg/dL (0.55-1.02) 11/15/17 07:00 Creat Clearance w eGFR > 60 (>60) 11/15/17 07:00 Random Glucose 74 mg/dL (74-106) 11/15/17 07:00 Calcium 8.1 mg/dL (8.5-10.1) L 11/15/17 07:00 Total Bilirubin 0.3 mg/dL (0.2-1.0) D 11/15/17 07:00 AST 47 U/L (15-37) H 11/15/17 07:00 ALT 41 U/L (12-78) 11/15/17 07:00 Alkaline Phosphatase 109 U/L (45-117) 11/15/17 07:00 Total Protein 6.2 g/dl (6.4-8.2) L 11/15/17 07:00 Albumin 2.8 g/dl (3.4-5.0) L 11/15/17 07:00 Urine Color Yellow 11/15/17 08:00 Urine Appearance Clear 11/15/17 08:00 Urine pH 5.0 (5.0-8.0) 11/15/17 08:00 Ur Specific [place] 1.014 (1.001-1.035) 11/15/17 08:00 Urine Protein Negative (NEGATIVE) 11/15/17 08:00 Urine Glucose (UA) Negative (NEGATIVE) 11/15/17 08:00 Urine Ketones Negative (NEGATIVE) 11/15/17 08:00 Urine Blood Negative (NEGATIVE) 11/15/17 08:00 Urine Nitrite Negative (NEGATIVE) 11/15/17 08:00 Urine Bilirubin Negative (NEGATIVE) 11/15/17 08:00 Urine Urobilinogen 2.0 mg/dL (0.2-1.0) H 11/15/17 08:00 Ur Leukocyte Esterase Negative (NEGATIVE) 11/15/17 08:00 RPR Titer Nonreactive (NONREACTIVE) 11/15/17 07:00 Hepatitis C Antibody >11.0 s/co ratio (0.0-0.9) H 11/14/17 07:00 lab noted Assessment: 11/16/17 09:11 withdrawal sx Plan: withdrawal sx
[2017-11-16] MEDS: MAGNESIUM HYDROX 2400MG/30ML ORAL SUSPENSION 30 ML CUP PO PRN (10:23)
[2017-11-16] MEDS: PANTOPRAZOLE 40 MG TABLET (FP) PO SCH (10:37)
[2017-11-16] MEDS: CITALOPRAM HYDROBROMIDE 20 MG TABLET (FP) PO SCH (10:37)
[2017-11-16] MEDS: NICOTINE 21 MG/24 HOURS TOPICAL PATCH TD SCH (10:37)
[2017-11-16] MEDS: FERROUS SO4 325 MG TABLET (FP) PO SCH (10:37)
[2017-11-16] MEDS: PRENATAL VITAMINS W/ FOLIC ACID TABLET (FP) PO SCH (10:37)
[2017-11-16] MEDS: DOCUSATE SODIUM 100 MG CAPSULE (FP) PO SCH ×2 (14:25→22:20)
[2017-11-16] MEDS: chlordiazePOXIDE HCL 25 MG CAPSULE PO PRN (14:26)
[2017-11-16] MEDS: NICOTINE POLACRILEX 2 MG GUM BC PRN (15:29)
[2017-11-16] MEDS: chlordiazePOXIDE 5 MG CAPSULE PO SCH (22:19)
[2017-11-16] MEDS: QUEtiapine FUMARATE 50 MG TABLET PO SCH (22:20)
[2017-11-16] MEDS: SENNOSIDES 8.6MG TABLET (FP) PO SCH (22:20)
[2017-11-16] MEDS: hydrOXYzine PAMOATE 50 MG CAPSULE (FP) PO PRN (22:21)
[2017-11-16] MEDS: THIAMINE HCL 100 MG TABLET (FP) PO SCH (22:21)
[2017-11-16] MEDS ORDERED: TRIMETHOBENZAMIDE HCL 200MG/2ML INJ IM ONE (23:00)
[2017-11-17] MEDS: METHADONE HCL 40 MG DISPERSABLE TABLET PO SCH (05:06)
[2017-11-17] MEDS: chlordiazePOXIDE 5 MG CAPSULE PO SCH ×3 (05:06→16:41)
[2017-11-17] MEDS: GABAPENTIN 400 MG CAPSULE (FP) PO SCH ×3 (05:07→22:24)
[2017-11-17] MEDS: DOCUSATE SODIUM 100 MG CAPSULE (FP) PO SCH ×3 (05:07→22:25)
[2017-11-17] MEDS: FERROUS SO4 325 MG TABLET (FP) PO SCH (10:43)
[2017-11-17] MEDS: PRENATAL VITAMINS W/ FOLIC ACID TABLET (FP) PO SCH (10:43)
[2017-11-17] MEDS: CITALOPRAM HYDROBROMIDE 20 MG TABLET (FP) PO SCH (10:43)
[2017-11-17] MEDS: PANTOPRAZOLE 40 MG TABLET (FP) PO SCH (10:43)
[2017-11-17] MEDS: NICOTINE 21 MG/24 HOURS TOPICAL PATCH TD SCH (10:44)
--- NOTE | 2017-11-17 10:57 | PN ---
S Progress Note (SOAP) Subjective: mild tremor calm alert oriented x 3 less anxious Objective: 11/17/17 11:02 Vital Signs Temperature 97.7 F 11/17/17 10:26 Pulse Rate 80 11/17/17 10:26 Respiratory Rate 16 11/17/17 10:26 Blood Pressure 101/61 11/17/17 10:26 O2 Sat by Pulse Oximetry (%) Laboratory Last Values WBC 3.7 K/mm3 (4.0-10.0) L 11/15/17 07:00 RBC 4.08 M/mm3 (3.60-5.2) 11/15/17 07:00 Hgb 9.1 GM/dL (10.7-15.3) L 11/15/17 07:00 Hct 30.1 % (32.4-45.2) L 11/15/17 07:00 MCV 73.7 fl (80-96) L 11/15/17 07:00 MCH 22.3 pg (25.7-33.7) L 11/15/17 07:00 MCHC 30.2 g/dl (32.0-36.0) L 11/15/17 07:00 RDW 22.3 % (11.6-15.6) H 11/15/17 07:00 Plt Count 169 K/MM3 (134-434) D 11/15/17 07:00 MPV 8.1 fl (7.5-11.1) 11/15/17 07:00 Sodium 140 mmol/L (136-145) 11/15/17 07:00 Potassium 4.5 mmol/L (3.5-5.1) 11/15/17 07:00 Chloride 105 mmol/L (98-107) 11/15/17 07:00 Carbon Dioxide 30 mmol/L (21-32) 11/15/17 07:00 Anion Gap 5 (8-16) L 11/15/17 07:00 BUN 11 mg/dL (7-18) 11/15/17 07:00 Creatinine 0.8 mg/dL (0.55-1.02) 11/15/17 07:00 Creat Clearance w eGFR > 60 (>60) 11/15/17 07:00 Random Glucose 74 mg/dL (74-106) 11/15/17 07:00 Calcium 8.1 mg/dL (8.5-10.1) L 11/15/17 07:00 Total Bilirubin 0.3 mg/dL (0.2-1.0) D 11/15/17 07:00 AST 47 U/L (15-37) H 11/15/17 07:00 ALT 41 U/L (12-78) 11/15/17 07:00 Alkaline Phosphatase 109 U/L (45-117) 11/15/17 07:00 Total Protein 6.2 g/dl (6.4-8.2) L 11/15/17 07:00 Albumin 2.8 g/dl (3.4-5.0) L 11/15/17 07:00 Urine Color Yellow 11/15/17 08:00 Urine Appearance Clear 11/15/17 08:00 Urine pH 5.0 (5.0-8.0) 11/15/17 08:00 Ur Specific [place] 1.014 (1.001-1.035) 11/15/17 08:00 Urine Protein Negative (NEGATIVE) 11/15/17 08:00 Urine Glucose (UA) Negative (NEGATIVE) 11/15/17 08:00 Urine Ketones Negative (NEGATIVE) 11/15/17 08:00 Urine Blood Negative (NEGATIVE) 11/15/17 08:00 Urine Nitrite Negative (NEGATIVE) 11/15/17 08:00 Urine Bilirubin Negative (NEGATIVE) 11/15/17 08:00 Urine Urobilinogen 2.0 mg/dL (0.2-1.0) H 11/15/17 08:00 Ur Leukocyte Esterase Negative (NEGATIVE) 11/15/17 08:00 Valproic Acid < 3.000 ug/ml (50-100) L 11/16/17 06:00 RPR Titer Nonreactive (NONREACTIVE) 11/15/17 07:00 Hepatitis C Antibody >11.0 s/co ratio (0.0-0.9) H 11/14/17 07:00 lab noted Assessment: 11/17/17 11:03 mild withdrawal sx Plan: medically supervised detox
[2017-11-17] MEDS: chlordiazePOXIDE HCL 25 MG CAPSULE PO PRN (13:17)
[2017-11-17] MEDS: MAGNESIUM HYDROX 2400MG/30ML ORAL SUSPENSION 30 ML CUP PO PRN (16:23)
[2017-11-17] MEDS ORDERED: ONDANSETRON *ODT* 4 MG TABLET SL PRN (18:09)
[2017-11-17] MEDS: hydrOXYzine PAMOATE 50 MG CAPSULE (FP) PO PRN (18:35)
[2017-11-17] MEDS: QUEtiapine FUMARATE 50 MG TABLET PO SCH (22:24)
[2017-11-17] MEDS: chlordiazePOXIDE HCL 10 MG CAPSULE PO SCH (22:24)
[2017-11-17] MEDS: SENNOSIDES 8.6MG TABLET (FP) PO SCH (22:24)
[2017-11-17] MEDS: THIAMINE HCL 100 MG TABLET (FP) PO SCH (22:24)
[2017-11-18] MEDS: hydrOXYzine PAMOATE 50 MG CAPSULE (FP) PO PRN (01:18)
[2017-11-18] MEDS: METHADONE HCL 40 MG DISPERSABLE TABLET PO SCH (06:00)
[2017-11-18] MEDS: chlordiazePOXIDE HCL 10 MG CAPSULE PO SCH (06:02)
[2017-11-18] MEDS: DOCUSATE SODIUM 100 MG CAPSULE (FP) PO SCH (06:02)
[2017-11-18] MEDS: GABAPENTIN 400 MG CAPSULE (FP) PO SCH (06:02)
--- NOTE | 2017-11-18 09:03 | DS ---
[facility] Detox Discharge Summary Admission Date: 11/14/17 Discharge Date: 11/18/17 - History Present History: Alcohol Dependence, Cocaine Dependence, Sedative Dependence, MMTP - Physical Exam Results Vital Signs: Vital Signs Temperature 97.5 F L 11/18/17 06:16 Pulse Rate 88 11/18/17 06:16 Respiratory Rate 18 11/18/17 06:16 Blood Pressure 112/71 11/18/17 06:16 O2 Sat by Pulse Oximetry (%) - Treatment Hospital Course: Detox Protocol Followed, Detoxed Safely, Responded well, Discharged Condition Good, Rehab Referral Accepted - Medication Discharge Medications: Ambulatory Orders Gabapentin [Neurontin -] 800 mg PO TID 09/05/17 Quetiapine Fumarate [Seroquel -] 300 mg PO HS 09/05/17 Omeprazole Magnesium 40 mg PO DAILY 11/14/17 - Diagnosis (1) Alcohol dependence with uncomplicated withdrawal Current Visit: Yes Status: Acute (2) Depression (emotion) Current Visit: Yes Status: Acute Qualifiers: Depression Type: dysthymia Qualified Code(s): F34.1 - Dysthymic disorder (3) Bipolar disorder Current Visit: Yes Status: Chronic (4) Chronic pain Current Visit: Yes Status: Chronic Qualifiers: Chronic pain type: due to trauma Qualified Code(s): G89.21 - Chronic pain due to trauma (5) Cocaine dependence Current Visit: Yes Status: Chronic (6) GERD (gastroesophageal reflux disease) Current Visit: Yes Status: Chronic Qualifiers: Esophagitis presence: without esophagitis Qualified Code(s): K21.9 - Gastro -esophageal reflux disease without esophagitis (7) Insomnia Current Visit: Yes Status: Chronic (8) Methadone maintenance therapy patient Current Visit: Yes Status: Chronic (9) Nicotine dependence Current Visit: Yes Status: Chronic Qualifiers: Nicotine product type: cigarettes Substance use status: uncomplicated Qualified Code(s): F17.210 - Nicotine dependence, cigarettes, uncomplicated (10) Sedative, hypnotic or anxiolytic dependence with withdrawal, uncomplicated Current Visit: Yes Status: Chronic (11) Opioid dependence on agonist therapy Current Visit: No Status: Acute (12) Substance induced mood disorder Current Visit: No Status: Acute (13) Weight loss Current Visit: No Status: Acute - AMA Did Patient Leave Against Medical Advice: No
[2017-11-18] MEDS: PANTOPRAZOLE 40 MG TABLET (FP) PO SCH (10:50)
[2017-11-18] MEDS: CITALOPRAM HYDROBROMIDE 20 MG TABLET (FP) PO SCH (10:50)
[2017-11-18] MEDS: NICOTINE 21 MG/24 HOURS TOPICAL PATCH TD SCH (10:50)
[2017-11-18] MEDS: FERROUS SO4 325 MG TABLET (FP) PO SCH (10:50)
[2017-11-18] MEDS: PRENATAL VITAMINS W/ FOLIC ACID TABLET (FP) PO SCH (10:50)
[2017-11-18] MEDS: NICOTINE POLACRILEX 2 MG GUM BC PRN (10:51)
[2017-11-18 11:53] VITALS: BP 95/64; PULSE 81; TEMP 97.1
== END 2017-11-18 12:30 | disposition home or self-care (01) | DRG 773 ==
LOC: YASAS 19:32 → Y6N 22:08
PROVIDERS: ADMIT Internal Medicine; ATTEND Internal Medicine
PROC: HZ2ZZZZ Detoxification Services for Substance Abuse Treatment (ICD-10-PCS; principal; 2017-11-14)
DX: F10.230 Alcohol dependence with withdrawal, uncomplicated (principal); F11.20 Opioid dependence, uncomplicated; F13.230 Sedative, hypnotic or anxiolytic dependence with withdrawal, uncomplicated; F14.20 Cocaine dependence, uncomplicated; F17.210 Nicotine dependence, cigarettes, uncomplicated; F19.24 Other psychoactive substance dependence with psychoactive substance-induced mood disorder; F34.1 Dysthymic disorder; F31.9 Bipolar disorder, unspecified; D64.9 Anemia, unspecified; K21.9 Gastro-esophageal reflux disease without esophagitis; G47.00 Insomnia, unspecified; G89.21 Chronic pain due to trauma; Z98.84 Bariatric surgery status; Z87.898 Personal history of other specified conditions
CPT/HCPCS: 36415; 80053; 80164; 81003; 85027; 86593; 86803; 87522; 93005; 93010

== ENCOUNTER 2017-12-23 12:38 | Inpatient (IN) | payer BC ==
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
[2017-12-23 13:19] VITALS: BMI 23.6
[2017-12-23] MEDS ORDERED: IBUPROFEN 400 MG TABLET (FP) PO PRN ×2 (14:03→14:08)
[2017-12-23] MEDS ORDERED: MAGNESIUM HYDROX 2400MG/30ML ORAL SUSPENSION 30 ML CUP PO PRN ×2 (14:03→14:08)
[2017-12-23] MEDS ORDERED: MAGNESIUM CITRATE 300 ML BOTTLE PO PRN ×2 (14:03→14:08)
[2017-12-23] MEDS ORDERED: LOPERAMIDE HCL 2 MG CAPSULE PO PRN ×2 (14:03→14:08)
[2017-12-23] MEDS ORDERED: P-EPHED 60MG/TRIPROLIDI 2.5MG TABLET PO PRN ×2 (14:03→14:08)
[2017-12-23] MEDS ORDERED: MENTHOL/PHENOL 1 EACH UD MM PRN ×2 (14:03→14:08)
[2017-12-23] MEDS ORDERED: MAG HYDROX/AL HYDROX/SIMETH 30 ML UNIT-DOSE CUP PO PRN ×2 (14:03→14:08)
[2017-12-23] MEDS ORDERED: ACETAMINOPHEN 325 MG TABLET (FP) PO PRN ×2 (14:03→14:08)
[2017-12-23] MEDS ORDERED: guaiFENesin/D-METHORPHAN HB 10 ML UNIT-DOSE CUPS PO PRN ×2 (14:03→14:08)
[2017-12-23] MEDS: FLUoxetine HCL 20 MG CAPSULE (FP) PO SCH (17:43)
[2017-12-23] MEDS: NICOTINE POLACRILEX 4 MG GUM BUC PRN ×2 (17:47→22:41)
[2017-12-23] MEDS ORDERED: THIAMINE HCL 100 MG TABLET (FP) PO SCH (22:00)
[2017-12-23] MEDS: GABAPENTIN 400 MG CAPSULE (FP) PO SCH (22:03)
[2017-12-23] MEDS: QUEtiapine FUMARATE 50 MG TABLET PO SCH (22:03)
[2017-12-23] MEDS: THIAMINE HCL 100 MG TABLET (FP) PO SCH (22:03)
[2017-12-24] MEDS: GABAPENTIN 400 MG CAPSULE (FP) PO SCH ×3 (06:18→21:57)
[2017-12-24] MEDS: METHADONE HCL 40 MG DISPERSABLE TABLET PO SCH (06:18)
[2017-12-24] MEDS: PRENATAL VITAMINS W/ FOLIC ACID TABLET (FP) PO SCH (09:59)
[2017-12-24] MEDS: NICOTINE 21 MG/24 HOURS TOPICAL PATCH TD SCH (09:59)
[2017-12-24] MEDS: FLUoxetine HCL 20 MG CAPSULE (FP) PO SCH (09:59)
[2017-12-24] MEDS ORDERED: PRENATAL VITAMINS W/ FOLIC ACID TABLET (FP) PO SCH (10:00)
[2017-12-24] MEDS: hydrOXYzine PAMOATE 50 MG CAPSULE (FP) PO PRN ×2 (13:05→21:57)
[2017-12-24] MEDS: NICOTINE POLACRILEX 4 MG GUM BUC PRN (13:05)
[2017-12-24] MEDS: QUEtiapine FUMARATE 50 MG TABLET PO SCH (21:57)
[2017-12-24] MEDS: THIAMINE HCL 100 MG TABLET (FP) PO SCH (21:57)
[2017-12-25] MEDS: NICOTINE POLACRILEX 4 MG GUM BUC PRN ×3 (05:24→13:33)
[2017-12-25] MEDS: METHADONE HCL 40 MG DISPERSABLE TABLET PO SCH (06:12)
[2017-12-25] MEDS: GABAPENTIN 400 MG CAPSULE (FP) PO SCH ×3 (06:12→21:56)
[2017-12-25] MEDS: hydrOXYzine PAMOATE 50 MG CAPSULE (FP) PO PRN ×3 (07:15→21:56)
[2017-12-25] MEDS: NICOTINE 21 MG/24 HOURS TOPICAL PATCH TD SCH (10:28)
[2017-12-25] MEDS: PRENATAL VITAMINS W/ FOLIC ACID TABLET (FP) PO SCH (10:28)
[2017-12-25] MEDS: FLUoxetine HCL 20 MG CAPSULE (FP) PO SCH (10:28)
[2017-12-25] MEDS: QUEtiapine FUMARATE 50 MG TABLET PO SCH (21:56)
[2017-12-25] MEDS: THIAMINE HCL 100 MG TABLET (FP) PO SCH (21:56)
[2017-12-26] MEDS: NICOTINE POLACRILEX 4 MG GUM BUC PRN ×3 (05:08→13:43)
[2017-12-26] MEDS: METHADONE HCL 40 MG DISPERSABLE TABLET PO SCH (06:17)
[2017-12-26] MEDS: GABAPENTIN 400 MG CAPSULE (FP) PO SCH ×3 (06:17→21:42)
[2017-12-26] MEDS: hydrOXYzine PAMOATE 50 MG CAPSULE (FP) PO PRN ×2 (06:57→21:42)
[2017-12-26] MEDS: NICOTINE 21 MG/24 HOURS TOPICAL PATCH TD SCH (10:32)
[2017-12-26] MEDS: PRENATAL VITAMINS W/ FOLIC ACID TABLET (FP) PO SCH (10:32)
[2017-12-26] MEDS: FLUoxetine HCL 20 MG CAPSULE (FP) PO SCH (10:32)
[2017-12-26] MEDS: THIAMINE HCL 100 MG TABLET (FP) PO SCH (21:42)
[2017-12-26] MEDS: QUEtiapine FUMARATE 50 MG TABLET PO SCH (21:42)
[2017-12-27] MEDS: GABAPENTIN 400 MG CAPSULE (FP) PO SCH ×2 (06:10→13:28)
[2017-12-27] MEDS: METHADONE HCL 40 MG DISPERSABLE TABLET PO SCH (06:10)
[2017-12-27] MEDS: hydrOXYzine PAMOATE 50 MG CAPSULE (FP) PO PRN ×2 (06:12→10:27)
[2017-12-27] MEDS: NICOTINE POLACRILEX 4 MG GUM BUC PRN ×2 (06:12→09:04)
[2017-12-27 06:55] VITALS: BP 116/76; PULSE 78; TEMP 98
[2017-12-27] MEDS ORDERED: PANTOPRAZOLE 40 MG TABLET (FP) PO SCH ×2 (10:00→14:00)
[2017-12-27] MEDS: PRENATAL VITAMINS W/ FOLIC ACID TABLET (FP) PO SCH (10:25)
[2017-12-27] MEDS: NICOTINE 21 MG/24 HOURS TOPICAL PATCH TD SCH (10:25)
[2017-12-27] MEDS: FLUoxetine HCL 20 MG CAPSULE (FP) PO SCH (10:25)
--- NOTE | 2017-12-27 13:47 | PN ---
[facility] Progress Note Note: Called by nursing staff reporting that patient wants to leave before completing this program. Claims her rent is due and she has to pay it. She was determined to leave despite encouragement to stay to compete this program. Scripts for her medications(Prozac, Seroquel) were electronically transferred to [facility]. Refer to nursing note for further information. Patient is stable for discharge AMA
== END 2017-12-27 14:50 | disposition left against medical advice (07) | DRG 770 ==
LOC: YASAS 12:38 → Y3E 12:40
PROVIDERS: ADMIT Psychiatry & Neurology Psychiatry; ATTEND Psychiatry & Neurology Psychiatry
PROC: HZ42ZZZ Group Counseling for Substance Abuse Treatment, Cognitive-Behavioral (ICD-10-PCS; principal; 2017-12-23)
DX: F11.20 Opioid dependence, uncomplicated (principal); F14.20 Cocaine dependence, uncomplicated; F17.210 Nicotine dependence, cigarettes, uncomplicated; F31.9 Bipolar disorder, unspecified; K21.9 Gastro-esophageal reflux disease without esophagitis; G62.9 Polyneuropathy, unspecified; D64.9 Anemia, unspecified

== ENCOUNTER 2018-04-11 11:41 | Inpatient (IN) | payer BC ==
[2018-04-11 12:59] VITALS: BMI 21.7
--- NOTE | 2018-04-11 13:41 | HP ---
CIWA Score - CIWA Score Nausea/Vomitin-No Nausea/No Vomiting Muscle Tremors: 4-Moderate,w/Arms Extend Anxiety: 4-Mod. Anxious/Guarded Agitation: 4-Moderately Restless Paroxysmal Sweats: 1-Minimal Palms Moist Orientation: 0-Oriented Tacttile Disturbances: 0-None Auditory Disturbances: 0-None Visual Disturbances: 0-None Headache: 1-Very Mild CIWA-Ar Total Score: 14 Admission ROS BHS - HPI Chief Complaint: benzo withdrawal sx Allergies/Adverse Reactions: Allergies Allergy/AdvReac Type Severity Reaction Status Date / Time No Known Allergies Allergy Verified 04/11/18 13:58 History of Present Illness: 38 years old female with long history of benzo nicotine dependence has gerd methadone program 90 mg po and bipolar ii is admitted to detox Exam Limitations: No Limitations - Ebola screening Have you traveled outside of the country in the last 21 days: No Have you had contact with anyone from an Ebola affected area: No Have you been sick,other than usual withdrawal symptoms: No Do you have a fever: No - Review of Systems Constitutional: Loss of Appetite, Changes in sleep, Unintentional Wgt. Loss, Unexplained wgt Loss EENT: reports: Blurred Vision (need eye glasses) Respiratory: reports: No Symptoms reported Cardiac: reports: No Symptoms Reported GI: reports: Poor Appetite, Poor Fluid Intake, Indigestion, Abdominal cramping : reports: No Symptoms Reported Musculoskeletal: reports: No Symptoms Reported Integumentary: reports: Change in Color (hands), Erythema (hands) Neuro: reports: Seizure (last episode 12/2016 benzo withdrawal related), Tremors Endocrine: reports: No Symptoms Reported Hematology: reports: No Symptoms Reported Psychiatric: reports: Judgement Intact, Orientated x3, Anxious, Depressed Other Systems: Reviewed and Negative Patient History - Patient Medical History Hx Anemia: Yes Hx Asthma: No Hx Chronic Obstructive Pulmonary Disease (COPD): No Hx Cancer: No Hx Cardiac Disorders: No Hx Congestive Heart Failure: No Hx Hypertension: No Hx Hypercholesterolemia: No Hx Pacemaker: No HX Cerebrovascular Accident: No Hx Seizures: Yes (drug r/o in 2017) Hx Dementia: No Hx Diabetes: No Hx Gastrointestinal Disorders: Yes (GERD) Hx Liver Disease: No Hx Genitourinary Disorders: No Hx Sexually Transmitted Disorders: No Hx Renal Disease (ESRD): No Hx Thyroid Disease: No Hx Human Immunodeficiency Virus (HIV): No (Negative 2 months ago ) Hx Hepatitis C: Yes Hx Depression: No Hx Suicide Attempt: Yes (With Ammonia 3yrs ago) Hx Bipolar Disorder: Yes Hx Schizophrenia: No - Patient Surgical History Past Surgical History: Yes Hx Neurologic Surgery: No Hx Cataract Extraction: No Hx Cardiac Surgery: No Hx Lung Surgery: No Hx Breast Surgery: No Hx Breast Biopsy: No Hx Abdominal Surgery: Yes (Gastric bypass 2005) Hx Appendectomy: No Hx Cholecystectomy: Yes Hx Genitourinary Surgery: No Hx Section: Yes (2007) Hx Orthopedic Surgery: No Hx Hysterectomy: No Anesthesia Reaction: No - PPD History Previous Implant?: Yes Documented Results: Negative w/proof Implanted On Prior [facility] Admission?: Yes Date: 09/07/17 Results: 0mm PPD to be Administered?: No - Reproductive History Patient is a Female of Child Bearing Age (11 -55 yrs old): Yes Last Menstrual Period: 02/09/18 Patient : No - Smoking Cessation Smoking history: Current every day smoker Have you smoked in the past 12 months: Yes Aproximately how many cigarettes per day: 20 Cigars Per Day: 0 Hx Chewing Tobacco Use: No Initiated information on smoking cessation: Yes 'Breaking Loose' booklet given: 04/11/18 - Substance & Tx. History Hx Alcohol Use: Yes Hx Substance Use: Yes Substance Use Type: Alcohol, Tranquilizers Hx Substance Use Treatment: Yes (12/2017 [facility] Family Disease History - Family Disease History Family Disease History: Other: Father (alive and well ), Mother (alive and well) , Sister (NO SISTER) Admission Physical Exam S - Vital Signs Vital Signs: Vital Signs - 24 hr 04/11/18 12:54 Temperature 98.7 F Pulse Rate 114 H Respiratory 20 Rate Blood Pressure 138/100 - Physical General Appearance: Yes: Appropriately Dressed, Mild Distress, Alcohol on Breath , Thin, Tremorous, Irritable, Sweating, Anxious HEENTM: Yes: Hearing grossly Normal, Normocephalic, Normal Voice Respiratory: Yes: Chest Non-Tender, Lungs Clear, Normal Breath Sounds, No Respiratory Distress, No Accessory Muscle Use Neck: Yes: Supple, Trachea in good position Breast: Yes: Breasts Symetrical, No Discharge Cardiology: Yes: Regular Rhythm, S1, S2, Tachycardia Abdominal: Yes: Flat, Soft, Increased Bowel Sounds Genitourinary: Yes: Within Normal Limits Back: Yes: Normal Inspection Musculoskeletal: Yes: full range of Motion, Gait Steady Extremities: Yes: Normal Range of Motion, Non-Tender, Tremors Neurological: Yes: Fully Oriented, Alert, Motor Strength 5/5, Normal Response, Depressed Affect Integumentary: Yes: Warm, Track Valentino (hands abscess) Lymphatic: Yes: Within Normal Limits - Diagnostic (1) Alcohol dependence with uncomplicated withdrawal Current Visit: Yes Status: Acute (2) Bipolar disorder Current Visit: Yes Status: Suspected Qualifiers: Active/Remission status: in partial remission Most recent bipolar episode type: hypomanic Qualified Code(s): F31.71 - Bipolar disorder, in partial remission, most recent episode hypomanic Comment: As per self-report.On medication. Non compliant with OPD care. Pt. requesting to restart medications while in detox. (3) GERD (gastroesophageal reflux disease) Current Visit: Yes Status: Chronic Qualifiers: Esophagitis presence: without esophagitis (4) Hepatitis C carrier Current Visit: No Status: Resolved (5) Methadone maintenance therapy patient Current Visit: Yes Status: Chronic Comment: 80 MG VERIFICATION PENDING (6) Neuropathy Current Visit: Yes Status: Chronic (7) Nicotine dependence Current Visit: Yes Status: Acute Qualifiers: Nicotine product type: cigarettes Substance use status: in withdrawal Qualified Code(s): F17.213 - Nicotine dependence, cigarettes, with withdrawal (8) Sedative, hypnotic or anxiolytic dependence with withdrawal, uncomplicated Current Visit: Yes Status: Acute Cleared for Admission [facility] - Detox or Rehab [facility] Level of Care: Medically Managed Detox Regimen/Protocol: Valium [facility] Breath Alcohol Content Breath Alcohol Content: 0 Urine Pregancy Test - Result Urine Test Results: Negative- NO Line Present Urine Drug Screen - Results Drug Screen Negative: No Urine Drug Screen Results: SWETHA-Cocaine, BZO-Benzodiazepines, MTD-Methadone
[2018-04-11] MEDS ORDERED: LOPERAMIDE HCL 2 MG CAPSULE PO PRN (13:57)
[2018-04-11] MEDS ORDERED: MAGNESIUM CITRATE 300 ML BOTTLE PO PRN (13:57)
[2018-04-11] MEDS ORDERED: MAG HYDROX/AL HYDROX/SIMETH 30 ML UNIT-DOSE CUP PO PRN (13:57)
[2018-04-11] MEDS ORDERED: P-EPHED 60MG/TRIPROLIDI 2.5MG TABLET PO PRN (13:57)
[2018-04-11] MEDS ORDERED: MENTHOL/PHENOL 1 EACH UD MM PRN (13:57)
[2018-04-11] MEDS ORDERED: NICOTINE POLACRILEX 4 MG GUM BUC PRN (13:57)
[2018-04-11] MEDS ORDERED: MAGNESIUM HYDROX 2400MG/30ML ORAL SUSPENSION 30 ML CUP PO PRN (13:57)
[2018-04-11] MEDS ORDERED: DOCUSATE SODIUM 100 MG CAPSULE (FP) PO PRN (14:02)
[2018-04-11] MEDS ORDERED: ALBUTEROL SO4 8 GM HFA INHALER IH PRN (14:08)
[2018-04-11] MEDS ORDERED: diazePAM 5 MG TABLET PO ONE (15:20)
[2018-04-11] MEDS ORDERED: BACITRACIN 0.9 GM PACKET TP ONE (15:30)
[2018-04-11] MEDS: GABAPENTIN 400 MG CAPSULE (FP) PO SCH ×2 (17:35→22:45)
[2018-04-11] MEDS: NICOTINE 21 MG/24 HOURS TOPICAL PATCH TD SCH (17:45)
[2018-04-11] MEDS: diazePAM 5 MG TABLET PO SCH ×2 (17:46→22:47)
[2018-04-11 18:45] LABS: URINE APPEARANCE TURBID; URINE BILIRUBIN NEGATIVE (<2.0 mg/dL); URINE COLOR AMBER; URINE GLUCOSE (UA) NEGATIVE (NEGATIVE); URINE KETONE NEGATIVE (NEGATIVE); URINE NITRITE POSITIVE (NEGATIVE); URINE PROTEIN NEGATIVE (NEGATIVE); URINE UROBILINOGEN NEGATIVE mg/dL (0.2-1.0)
[2018-04-11 18:58] LABS: URINE LEUK ESTERASE 1+ (NEGATIVE)
[2018-04-11 19:00] LABS: EPI CELLS RARE /HPF (FEW); URINE BACTERIA RARE /hpf (NONE SEEN); URINE HYALINE CAST 1 /lpf; URINE MUCUS RARE
[2018-04-11] MEDS ORDERED: MELATONIN 5 MG TABLETS PO PRN (22:00)
[2018-04-11] MEDS: FERROUS SO4 325 MG TABLET (FP) PO SCH (22:44)
[2018-04-11] MEDS: ACETAMINOPHEN 325 MG TABLET (FP) PO PRN (22:45)
[2018-04-11] MEDS: RANITIDINE HCL 150 MG TABLET (FP) PO SCH (22:47)
[2018-04-11] MEDS: THIAMINE HCL 100 MG TABLET (FP) PO SCH (22:47)
[2018-04-11] MEDS: guaiFENesin/D-METHORPHAN HB 10 ML UNIT-DOSE CUPS PO PRN (22:51)
[2018-04-12] MEDS: GABAPENTIN 400 MG CAPSULE (FP) PO SCH ×3 (06:01→22:28)
[2018-04-12] MEDS: diazePAM 5 MG TABLET PO SCH ×3 (06:01→22:28)
[2018-04-12] MEDS ORDERED: METHADONE HCL 40 MG DISPERSABLE TABLET ONE (07:02)
[2018-04-12] MEDS ORDERED: METHADONE HCL 10 MG TABLET ONE (07:03)
[2018-04-12] MEDS: METHADONE 80 MG, METHADONE 10 MG PO SCH (07:04)
[2018-04-12] MEDS: diazePAM 5 MG TABLET PO PRN ×2 (09:21→17:07)
[2018-04-12 09:35] LABS: HEMOGLOBIN 8.4 GM/dL (10.7-15.3); MCH 28.3 pg (25.7-33.7); MCHC 32.4 g/dl (32.0-36.0); MEAN CELL VOLUME 87.6 fl (80-96); MEAN PLT VOLUME 7.1 fl (7.5-11.1); PLATELET COUNT 506 K/MM3 (134-434); RBC 2.97 M/mm3 (3.60-5.2); RDW 23.2 % (11.6-15.6); WHITE BLOOD COUNT 7.1 K/mm3 (4.0-10.0)
[2018-04-12 09:58] LABS: CHLORIDE 103 mmol/L (98-107); POTASSIUM 4.1 mmol/L (3.5-5.1); SODIUM 140 mmol/L (136-145)
[2018-04-12] MEDS ORDERED: METHADONE HCL 40 MG DISPERSABLE TABLET PO SCH (10:00)
[2018-04-12] MEDS ORDERED: METHADONE 80 MG, METHADONE 10 MG PO SCH (10:00)
[2018-04-12] MEDS: NICOTINE 21 MG/24 HOURS TOPICAL PATCH TD SCH (10:33)
[2018-04-12] MEDS: FERROUS SO4 325 MG TABLET (FP) PO SCH ×2 (10:33→22:28)
[2018-04-12] MEDS: PRENATAL VITAMINS W/ FOLIC ACID TABLET (FP) PO SCH (10:33)
[2018-04-12] MEDS: RANITIDINE HCL 150 MG TABLET (FP) PO SCH ×2 (10:33→22:28)
[2018-04-12 10:37] LABS: ALBUMIN 2.1 g/dl (3.4-5.0); ALK PHOS 148 U/L (45-117); ANION GAP 11 (8-16); BILIRUBIN,TOTAL 0.3 mg/dL (0.2-1.0); BLOOD UREA NITROGEN 7 mg/dL (7-18); CALCIUM 7.9 mg/dL (8.5-10.1); CO2 26 mmol/L (21-32); CREATININE 0.5 mg/dL (0.55-1.02); GLUCOSE,RANDOM 66 mg/dL (74-106); SGOT/AST 17 U/L (15-37); SGPT/ALT 18 U/L (12-78)
[2018-04-12] MEDS: ACETAMINOPHEN 325 MG TABLET (FP) PO PRN ×2 (10:54→20:22)
--- NOTE | 2018-04-12 12:27 | PN ---
S CIWA - CIWA Score Nausea/Vomitin-No Nausea/No Vomiting Muscle Tremors: 3 Anxiety: 2 Agitation: 2 Paroxysmal Sweats: 1-Minimal Palms Moist Orientation: 0-Oriented Tacttile Disturbances: 1-Very Mild Itch/Numbness Auditory Disturbances: 0-None Visual Disturbances: 0-None Headache: 2-Mild CIWA-Ar Total Score: 11 S Progress Note (SOAP) Subjective: anxiety restlessness irritable Objective: 04/12/18 12:28 Vital Signs Temperature 96.1 F L 04/12/18 09:55 Pulse Rate 83 04/12/18 09:55 Respiratory Rate 18 04/12/18 09:55 Blood Pressure 124/74 04/12/18 09:55 O2 Sat by Pulse Oximetry (%) Laboratory Last Values WBC 7.1 K/mm3 (4.0-10.0) 04/12/18 08:00 RBC 2.97 M/mm3 (3.60-5.2) L 04/12/18 08:00 Hgb 8.4 GM/dL (10.7-15.3) L 04/12/18 08:00 Hct 26.0 % (32.4-45.2) L 04/12/18 08:00 MCV 87.6 fl (80-96) 04/12/18 08:00 MCH 28.3 pg (25.7-33.7) D 04/12/18 08:00 MCHC 32.4 g/dl (32.0-36.0) 04/12/18 08:00 RDW 23.2 % (11.6-15.6) H 04/12/18 08:00 Plt Count 506 K/MM3 (134-434) H D 04/12/18 08:00 MPV 7.1 fl (7.5-11.1) L D 04/12/18 08:00 Sodium 140 mmol/L (136-145) 04/12/18 08:00 Potassium 4.1 mmol/L (3.5-5.1) 04/12/18 08:00 Chloride 103 mmol/L (98-107) 04/12/18 08:00 Carbon Dioxide 26 mmol/L (21-32) 04/12/18 08:00 Anion Gap 11 (8-16) 04/12/18 08:00 BUN 7 mg/dL (7-18) 04/12/18 08:00 Creatinine 0.5 mg/dL (0.55-1.02) L 04/12/18 08:00 Creat Clearance w eGFR > 60 (>60) 04/12/18 08:00 Random Glucose 66 mg/dL (74-106) L 04/12/18 08:00 Calcium 7.9 mg/dL (8.5-10.1) L 04/12/18 08:00 Total Bilirubin 0.3 mg/dL (0.2-1.0) 04/12/18 08:00 AST 17 U/L (15-37) 04/12/18 08:00 ALT 18 U/L (12-78) 04/12/18 08:00 Alkaline Phosphatase 148 U/L (45-117) H 04/12/18 08:00 Total Protein 7.0 g/dl (6.4-8.2) 04/12/18 08:00 Albumin 2.1 g/dl (3.4-5.0) L 04/12/18 08:00 Urine Color [place] 04/11/18 15:39 Urine Appearance Turbid 04/11/18 15:39 Urine pH 5.0 (5.0-8.0) D 04/11/18 15:39 Ur Specific [place] 1.019 (1.001-1.035) 04/11/18 15:39 Urine Protein Negative (NEGATIVE) 04/11/18 15:39 Urine Glucose (UA) Negative (NEGATIVE) 04/11/18 15:39 Urine Ketones Negative (NEGATIVE) 04/11/18 15:39 Urine Blood Negative (NEGATIVE) 04/11/18 15:39 Urine Nitrite Positive (NEGATIVE) 04/11/18 15:39 Urine Bilirubin Negative (<2.0 mg/dL) 04/11/18 15:39 Urine Urobilinogen Negative mg/dL (0.2-1.0) 04/11/18 15:39 Ur Leukocyte Esterase 1+ (NEGATIVE) H 04/11/18 15:39 Urine WBC (Auto) 29 /hpf (3-5) 04/11/18 15:39 Urine RBC (Auto) None /hpf (0-3) 04/11/18 15:39 Ur Epithelial Cells Rare /HPF (FEW) 04/11/18 15:39 Urine Bacteria Rare /hpf (NONE SEEN) 04/11/18 15:39 Hyaline Casts 1 /lpf 04/11/18 15:39 Urine Mucus Rare 04/11/18 15:39 RPR Titer Nonreactive (NONREACTIVE) 04/12/18 08:00 repeat ua lab noted 04/12/18 12:35 Assessment: 04/12/18 12:29 withdrawal sx Plan: continue detox personal hygiene increase oral fluid repeat ua
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
[2018-04-12] MEDS: guaiFENesin/D-METHORPHAN HB 10 ML UNIT-DOSE CUPS PO PRN (17:35)
[2018-04-12] MEDS ORDERED: QUEtiapine FUMARATE 50 MG TABLET PO SCH (22:00)
[2018-04-12] MEDS: THIAMINE HCL 100 MG TABLET (FP) PO SCH (22:28)
[2018-04-13] MEDS: diazePAM 5 MG TABLET PO PRN ×4 (02:09→19:08)
[2018-04-13] MEDS ORDERED: METHADONE HCL 10 MG TABLET ONE (05:04)
[2018-04-13] MEDS ORDERED: METHADONE HCL 40 MG DISPERSABLE TABLET ONE (05:04)
[2018-04-13] MEDS: METHADONE 80 MG, METHADONE 10 MG PO SCH (05:09)
[2018-04-13] MEDS: GABAPENTIN 400 MG CAPSULE (FP) PO SCH ×3 (05:09→22:32)
[2018-04-13] MEDS ORDERED: FLUoxetine HCL 20 MG CAPSULE (FP) PO SCH (10:00)
[2018-04-13] MEDS: NICOTINE 21 MG/24 HOURS TOPICAL PATCH TD SCH (10:26)
[2018-04-13] MEDS: PRENATAL VITAMINS W/ FOLIC ACID TABLET (FP) PO SCH (10:26)
[2018-04-13] MEDS: FERROUS SO4 325 MG TABLET (FP) PO SCH ×2 (10:26→22:33)
[2018-04-13] MEDS: RANITIDINE HCL 150 MG TABLET (FP) PO SCH ×2 (10:26→23:56)
[2018-04-13] MEDS: diazePAM 5 MG TABLET PO SCH ×2 (10:28→22:33)
[2018-04-13 10:33] LABS: URINE APPEARANCE CLEAR; URINE BILIRUBIN NEGATIVE (<2.0 mg/dL); URINE COLOR LTYELLOW; URINE GLUCOSE (UA) NEGATIVE (NEGATIVE); URINE KETONE NEGATIVE (NEGATIVE); URINE LEUK ESTERASE NEGATIVE (NEGATIVE); URINE NITRITE NEGATIVE (NEGATIVE); URINE PROTEIN NEGATIVE (NEGATIVE); URINE UROBILINOGEN NEGATIVE mg/dL (0.2-1.0)
--- NOTE | 2018-04-13 11:31 | EKG ---
Test Reason : Blood Pressure : / mmHG Vent. Rate : 092 BPM Atrial Rate : 092 BPM P-R Int : 158 ms QRS Dur : 078 ms QT Int : 398 ms P-R-T Axes : 020 020 007 degrees QTc Int : 492 ms NORMAL SINUS RHYTHM PROLONGED QT ABNORMAL ECG WHEN COMPARED WITH ECG OF 11-APR-2018 17:19, NO SIGNIFICANT CHANGE WAS FOUND Confirmed by GEORGE FLOWERS MD ([id number]) on 04/13/2018 11:30:52 AM Referred By: Confirmed By:GEORGE FLOWERS MD
[2018-04-13] MEDS: ACETAMINOPHEN 325 MG TABLET (FP) PO PRN ×2 (13:10→19:06)
[2018-04-13] MEDS: guaiFENesin/D-METHORPHAN HB 10 ML UNIT-DOSE CUPS PO PRN ×2 (13:10→19:06)
[2018-04-13] MEDS ORDERED: BACITRACIN 0.9 GM PACKET TP ONE (14:35)
--- NOTE | 2018-04-13 15:08 | PN ---
[facility] CIWA - CIWA Score Nausea/Vomitin-No Nausea/No Vomiting Muscle Tremors: 4-Moderate,w/Arms Extend Anxiety: 2 Agitation: 3 Paroxysmal Sweats: 1-Minimal Palms Moist Orientation: 0-Oriented Tacttile Disturbances: 1-Very Mild Itch/Numbness Auditory Disturbances: 0-None Visual Disturbances: 0-None Headache: 0-None Present CIWA-Ar Total Score: 11 [facility] Progress Note (SOAP) Subjective: sweat tremor restlessness irritable low tolerance agitation Objective: 04/13/18 15:07 Vital Signs Temperature 96.4 F L 04/13/18 13:58 Pulse Rate 99 H 04/13/18 13:58 Respiratory Rate 20 04/13/18 13:58 Blood Pressure 120/80 04/13/18 13:58 O2 Sat by Pulse Oximetry (%) Laboratory Last Values WBC 7.1 K/mm3 (4.0-10.0) 04/12/18 08:00 RBC 2.97 M/mm3 (3.60-5.2) L 04/12/18 08:00 Hgb 8.4 GM/dL (10.7-15.3) L 04/12/18 08:00 Hct 26.0 % (32.4-45.2) L 04/12/18 08:00 MCV 87.6 fl (80-96) 04/12/18 08:00 MCH 28.3 pg (25.7-33.7) D 04/12/18 08:00 MCHC 32.4 g/dl (32.0-36.0) 04/12/18 08:00 RDW 23.2 % (11.6-15.6) H 04/12/18 08:00 Plt Count 506 K/MM3 (134-434) H D 04/12/18 08:00 MPV 7.1 fl (7.5-11.1) L D 04/12/18 08:00 Sodium 140 mmol/L (136-145) 04/12/18 08:00 Potassium 4.1 mmol/L (3.5-5.1) 04/12/18 08:00 Chloride 103 mmol/L (98-107) 04/12/18 08:00 Carbon Dioxide 26 mmol/L (21-32) 04/12/18 08:00 Anion Gap 11 (8-16) 04/12/18 08:00 BUN 7 mg/dL (7-18) 04/12/18 08:00 Creatinine 0.5 mg/dL (0.55-1.02) L 04/12/18 08:00 Creat Clearance w eGFR > 60 (>60) 04/12/18 08:00 Random Glucose 66 mg/dL (74-106) L 04/12/18 08:00 Calcium 7.9 mg/dL (8.5-10.1) L 04/12/18 08:00 Total Bilirubin 0.3 mg/dL (0.2-1.0) 04/12/18 08:00 AST 17 U/L (15-37) 04/12/18 08:00 ALT 18 U/L (12-78) 04/12/18 08:00 Alkaline Phosphatase 148 U/L (45-117) H 04/12/18 08:00 Total Protein 7.0 g/dl (6.4-8.2) 04/12/18 08:00 Albumin 2.1 g/dl (3.4-5.0) L 04/12/18 08:00 Urine Color Ltyellow 04/13/18 07:40 Urine Appearance Clear 04/13/18 07:40 Urine pH 7.0 (5.0-8.0) D 04/13/18 07:40 Ur Specific [place] 1.013 (1.001-1.035) 04/13/18 07:40 Urine Protein Negative (NEGATIVE) 04/13/18 07:40 Urine Glucose (UA) Negative (NEGATIVE) 04/13/18 07:40 Urine Ketones Negative (NEGATIVE) 04/13/18 07:40 Urine Blood Negative (NEGATIVE) 04/13/18 07:40 Urine Nitrite Negative (NEGATIVE) 04/13/18 07:40 Urine Bilirubin Negative (<2.0 mg/dL) 04/13/18 07:40 Urine Urobilinogen Negative mg/dL (0.2-1.0) 04/13/18 07:40 Ur Leukocyte Esterase Negative (NEGATIVE) 04/13/18 07:40 Urine WBC (Auto) 29 /hpf (3-5) 04/11/18 15:39 Urine RBC (Auto) None /hpf (0-3) 04/11/18 15:39 Ur Epithelial Cells Rare /HPF (FEW) 04/11/18 15:39 Urine Bacteria Rare /hpf (NONE SEEN) 04/11/18 15:39 Hyaline Casts 1 /lpf 04/11/18 15:39 Urine Mucus Rare 04/11/18 15:39 RPR Titer Nonreactive (NONREACTIVE) 04/12/18 08:00 lab noted Assessment: 04/13/18 15:08 withdrawal sx Plan: continue detox
[2018-04-13] MEDS: THIAMINE HCL 100 MG TABLET (FP) PO SCH (22:32)
[2018-04-14] MEDS: diazePAM 5 MG TABLET PO PRN ×3 (01:02→13:05)
[2018-04-14] MEDS ORDERED: METHADONE HCL 10 MG TABLET ONE (04:24)
[2018-04-14] MEDS ORDERED: METHADONE HCL 40 MG DISPERSABLE TABLET ONE (04:24)
[2018-04-14] MEDS: METHADONE 80 MG, METHADONE 10 MG PO SCH (05:15)
[2018-04-14] MEDS: GABAPENTIN 400 MG CAPSULE (FP) PO SCH ×2 (05:16→13:05)
[2018-04-14] MEDS: NICOTINE 21 MG/24 HOURS TOPICAL PATCH TD SCH (10:53)
[2018-04-14] MEDS: diazePAM 5 MG TABLET PO SCH ×2 (10:53→22:36)
[2018-04-14] MEDS: FERROUS SO4 325 MG TABLET (FP) PO SCH ×2 (10:53→22:36)
[2018-04-14] MEDS: PRENATAL VITAMINS W/ FOLIC ACID TABLET (FP) PO SCH (10:53)
[2018-04-14] MEDS: RANITIDINE HCL 150 MG TABLET (FP) PO SCH ×2 (10:53→22:36)
--- NOTE | 2018-04-14 12:36 | PN ---
S CIWA - CIWA Score Nausea/Vomitin-No Nausea/No Vomiting (lying in bed- comfortable after dosing with valium) Muscle Tremors: None Anxiety: 0-No Anxiety, at Ease Agitation: 0-Normal Activity Paroxysmal Sweats: No Perspiration Orientation: 0-Oriented Tacttile Disturbances: 0-None Auditory Disturbances: 0-None Visual Disturbances: 0-None Headache: 0-None Present CIWA-Ar Total Score: 0
--- NOTE | 2018-04-14 12:38 | PN ---
[facility] Progress Note (SOAP) Subjective: pt has diarrhea for 2 days, says was at [facility] 2 weeks ago with Klebsiella pneumonia- treatment with one of week of Antibiotics, was discharged with po antiobiotics which she never filles. Pt states has been using alcohol and benzo since discharge- here for detox- now on day #2 detox, pt states her diarrhea is both watery and soft, with some abd pain Objective: 04/14/18 12:36 CBC,CMP WBC 7.1 K/mm3 (4.0-10.0) 04/12/18 08:00 RBC 2.97 M/mm3 (3.60-5.2) L 04/12/18 08:00 Hgb 8.4 GM/dL (10.7-15.3) L 04/12/18 08:00 Hct 26.0 % (32.4-45.2) L 04/12/18 08:00 MCV 87.6 fl (80-96) 04/12/18 08:00 MCH 28.3 pg (25.7-33.7) D 04/12/18 08:00 MCHC 32.4 g/dl (32.0-36.0) 04/12/18 08:00 RDW 23.2 % (11.6-15.6) H 04/12/18 08:00 Plt Count 506 K/MM3 (134-434) H D 04/12/18 08:00 MPV 7.1 fl (7.5-11.1) L D 04/12/18 08:00 Sodium 140 mmol/L (136-145) 04/12/18 08:00 Potassium 4.1 mmol/L (3.5-5.1) 04/12/18 08:00 Chloride 103 mmol/L (98-107) 04/12/18 08:00 Carbon Dioxide 26 mmol/L (21-32) 04/12/18 08:00 Anion Gap 11 (8-16) 04/12/18 08:00 BUN 7 mg/dL (7-18) 04/12/18 08:00 Creatinine 0.5 mg/dL (0.55-1.02) L 04/12/18 08:00 Creat Clearance w eGFR > 60 (>60) 04/12/18 08:00 Random Glucose 66 mg/dL (74-106) L 04/12/18 08:00 Calcium 7.9 mg/dL (8.5-10.1) L 04/12/18 08:00 Total Bilirubin 0.3 mg/dL (0.2-1.0) 04/12/18 08:00 AST 17 U/L (15-37) 04/12/18 08:00 ALT 18 U/L (12-78) 04/12/18 08:00 Alkaline Phosphatase 148 U/L (45-117) H 04/12/18 08:00 Total Protein 7.0 g/dl (6.4-8.2) 04/12/18 08:00 Albumin 2.1 g/dl (3.4-5.0) L 04/12/18 08:00 Vital Signs - 24 hr 04/13/18 04/13/18 04/13/18 13:58 18:04 22:49 Temperature 96.4 F L 97.9 F 98.1 F Pulse Rate 99 H 101 H 101 H Respiratory 20 18 18 Rate Blood Pressure 120/80 108/74 117/76 04/14/18 04/14/18 04/14/18 00:30 06:20 11:25 Temperature 96.8 F L 99.1 F Pulse Rate 104 H 101 H Respiratory 18 18 14 Rate Blood Pressure 120/87 113/72 temp 99,Pr ~100 sitting on toilet b/c diarrhea 04/14/18 14:25 Assessment: Ass/Plan 04/14/18 14:28 pt on alcohol and benzo detox- continue with diarrhea and low grade fever- recent antibiotic use- will start probiotics and follow, if pt with persistent fever and diarrhea- will need to transfer for evaluation to r/o c.diff and treatment for dehydration 04/14/18 14:30
[2018-04-14] MEDS ORDERED: LACTOBACILLUS ACIDOPHILUS 1 TABLET PO ONE (14:27)
[2018-04-14] MEDS ORDERED: GABAPENTIN 400 MG CAPSULE (FP) PO PRN (17:30)
--- NOTE | 2018-04-14 17:34 | PN ---
[facility] Progress Note Note: pt noted to be sedated, falling asleep while talking: is on valium and neurontin and methadone detox: will hold neurontin and valium at decreased dose tonight
[2018-04-14] MEDS: guaiFENesin/D-METHORPHAN HB 10 ML UNIT-DOSE CUPS PO PRN (20:17)
[2018-04-14] MEDS: ACETAMINOPHEN 325 MG TABLET (FP) PO PRN (20:18)
[2018-04-14 21:54] VITALS: BP 140/93; PULSE 99; TEMP 97.7
[2018-04-14] MEDS: THIAMINE HCL 100 MG TABLET (FP) PO SCH (22:36)
[2018-04-15] MEDS ORDERED: METHADONE HCL 40 MG DISPERSABLE TABLET ONE (03:21)
[2018-04-15] MEDS ORDERED: METHADONE HCL 10 MG TABLET ONE (03:22)
[2018-04-15] MEDS ORDERED: BACITRACIN 0.9 GM PACKET ONE (05:41)
[2018-04-15] MEDS: METHADONE 80 MG, METHADONE 10 MG PO SCH (05:48)
[2018-04-15] MEDS ORDERED: BACITRACIN 0.9 GM PACKET TP SCH (06:15)
[2018-04-15] MEDS ORDERED: BACITRACIN 15 GM TUBE TOPICAL OINTMENT TP SCH (10:00)
[2018-04-15] MEDS ORDERED: diazePAM 5 MG TABLET PO SCH (10:00)
[2018-04-15] MEDS ORDERED: LACTOBACILLUS ACIDOPHILUS 1 TABLET PO SCH (10:00)
--- NOTE | 2018-05-26 11:19 | EKG ---
Test Reason : Blood Pressure : / mmHG Vent. Rate : 089 BPM Atrial Rate : 089 BPM P-R Int : 174 ms QRS Dur : 072 ms QT Int : 398 ms P-R-T Axes : 025 029 011 degrees QTc Int : 484 ms NORMAL SINUS RHYTHM PROLONGED QT ABNORMAL ECG WHEN COMPARED WITH ECG OF 19-DEC-2017 21:03, NO SIGNIFICANT CHANGE WAS FOUND Confirmed by CESAR MENDOZA MD ([id number]) on 04/12/2018 9:01:13 AM Also confirmed by CESAR MENDOZA MD ([id number]), news videotape editor NEAL ARRIOLA ([id number]) on 05/26/2018 11:18:58 AM Referred By: Confirmed By:CESAR MENDOZA MD
== END 2018-04-15 06:06 | disposition home or self-care (01) | DRG 775 ==
LOC: YASAS 11:41 → Y6N 15:02
PROVIDERS: ADMIT Surgery; ATTEND Surgery
PROC: HZ2ZZZZ Detoxification Services for Substance Abuse Treatment (ICD-10-PCS; principal; 2018-04-11)
DX: F10.230 Alcohol dependence with withdrawal, uncomplicated (principal); F13.230 Sedative, hypnotic or anxiolytic dependence with withdrawal, uncomplicated; F17.213 Nicotine dependence, cigarettes, with withdrawal; F31.71 Bipolar disorder, in partial remission, most recent episode hypomanic; F19.24 Other psychoactive substance dependence with psychoactive substance-induced mood disorder; G62.9 Polyneuropathy, unspecified; B18.2 Chronic viral hepatitis C; R19.7 Diarrhea, unspecified; Z87.01 Personal history of pneumonia (recurrent); Z86.69 Personal history of other diseases of the nervous system and sense organs; Z91.5 Personal history of self-harm
CPT/HCPCS: 36415; 80053; 81003; 81015; 85027; 86593; 93005; 93010

== ENCOUNTER 2018-07-03 16:29 | Inpatient (IN) | payer BC ==
[2018-07-03 18:55] VITALS: BMI 22.6
--- NOTE | 2018-07-03 19:54 | HP ---
CIWA Score - CIWA Score Nausea/Vomitin-Int. Nausea w/Dry Heave Muscle Tremors: 2 Anxiety: 3 Agitation: 1-Slight > Activity Paroxysmal Sweats: 2 Orientation: 0-Oriented Tacttile Disturbances: 0-None Auditory Disturbances: 0-None Visual Disturbances: 0-None Headache: 2-Mild CIWA-Ar Total Score: 14 Admission ROS BHS - HPI Chief Complaint: alcohol withdrawal symptoms Allergies/Adverse Reactions: Allergies Allergy/AdvReac Type Severity Reaction Status Date / Time No Known Allergies Allergy Verified 07/03/18 18:21 History of Present Illness: 37 yo female with hx of alcohol, nicotine, marijuana, benzodiazepine, crack / cocaine dependence is here seeking detox. PMHX: neuropathy, anxiety, depression , insomnia, Anemia, GERD. Patient currently attends out patient Methadone maintenance program at [facility], on Methadone 90 mg qd, last medicated 07/03. Denies suicidal / homicidal ideation or suicide attempts. Hx seizure related to drug, last seizure 1 year ago, reports hx of over dose, last over dose two years ago. Last detox [facility] 04/11/18 - 04/14/18, Reports longest period of sobriety 1 year. Exam Limitations: No Limitations - Ebola screening Have you traveled outside of the country in the last 21 days: No (N) Have you had contact with anyone from an Ebola affected area: No Do you have a fever: No - Review of Systems Constitutional: Chills, Loss of Appetite, Changes in sleep EENT: reports: No Symptoms Reported Respiratory: reports: No Symptoms reported Cardiac: reports: No Symptoms Reported GI: reports: Nausea, Poor Appetite, Vomiting : reports: No Symptoms Reported Musculoskeletal: reports: No Symptoms Reported Integumentary: reports: No Symptoms Reported Neuro: reports: See HPI, Headache Endocrine: reports: Increased Thirst Hematology: reports: See HPI, Anemia Psychiatric: reports: Orientated x3, Anxious Other Systems: Reviewed and Negative Patient History - Patient Medical History Hx Anemia: Yes Hx Asthma: No Hx Chronic Obstructive Pulmonary Disease (COPD): No Hx Cancer: No Hx Cardiac Disorders: No Hx Congestive Heart Failure: No Hx Hypertension: No Hx Hypercholesterolemia: No Hx Pacemaker: No HX Cerebrovascular Accident: No Hx Seizures: Yes (drug r/o in 2017) Hx Dementia: No Hx Diabetes: No Hx Gastrointestinal Disorders: Yes (GERD) Hx Liver Disease: No Hx Genitourinary Disorders: No Hx Sexually Transmitted Disorders: No Hx Renal Disease (ESRD): No Hx Thyroid Disease: No Hx Human Immunodeficiency Virus (HIV): No (Negative 2 months ago ) Hx Hepatitis C: Yes Hx Depression: Yes Hx Suicide Attempt: Yes (With Ammonia 3yrs ago) Hx Bipolar Disorder: Yes Hx Schizophrenia: No - Patient Surgical History Past Surgical History: Yes Hx Neurologic Surgery: No Hx Cataract Extraction: No Hx Cardiac Surgery: No Hx Lung Surgery: No Hx Breast Surgery: No Hx Breast Biopsy: No Hx Abdominal Surgery: Yes (Gastric bypass 2005) Hx Appendectomy: No Hx Cholecystectomy: Yes Hx Genitourinary Surgery: No Hx Section: Yes (2007) Hx Orthopedic Surgery: No Hx Hysterectomy: No Anesthesia Reaction: No - PPD History Previous Implant?: Yes Documented Results: Negative w/proof Date: 09/07/17 Results: 0mm PPD to be Administered?: Yes - Reproductive History Patient is a Female of Child Bearing Age (11 -55 yrs old): Yes Last Menstrual Period: 02/09/18 (irregular) Patient : No - Smoking Cessation Smoking history: Current every day smoker Have you smoked in the past 12 months: Yes Aproximately how many cigarettes per day: 20 Cigars Per Day: 0 Hx Chewing Tobacco Use: No Initiated information on smoking cessation: Yes 'Breaking Loose' booklet given: 07/03/18 - Substance & Tx. History Hx Alcohol Use: Yes Hx Substance Use: Yes Substance Use Type: Alcohol, Cocaine, Tranquilizers Hx Substance Use Treatment: Yes (Last detox [facility] 04/11/18 - 04/14/18) - Substances Abused Alcohol Route: Oral Frequency: Daily Amount used: LIQUOR-1 PINT, BEER- 5 (22oz) Age of first use: 16 Date of Last Use: 07/03/18 Family Disease History - Family Disease History Family Disease History: Other: Father (alive and well ), Mother (alive and well) , Sister (NO SISTER) Admission Physical Exam S - Vital Signs Vital Signs: Vital Signs - 24 hr 07/03/18 18:13 Temperature 98.9 F Pulse Rate 77 Respiratory 18 Rate Blood Pressure 134/91 - Physical General Appearance: Yes: Disheveled, Mild Distress, Thin, Anxious HEENTM: Yes: EOMI, Hearing grossly Normal, Normal ENT Inspection, Normocephalic , Normal Voice, Pharynx Normal, Tm's normal Respiratory: Yes: Chest Non-Tender, Lungs Clear, Normal Breath Sounds, No Respiratory Distress, No Accessory Muscle Use Neck: Yes: Within Normal Limits Breast: Yes: Breast Exam Deferred Cardiology: Yes: Regular Rhythm, Regular Rate Abdominal: Yes: Within Normal Limits Genitourinary: Yes: Within Normal Limits Back: Yes: Normal Inspection Musculoskeletal: Yes: full range of Motion, Gait Steady, Pelvis Stable Extremities: Yes: Normal Capillary Refill, Normal Inspection, Normal Range of Motion, Non-Tender Neurological: Yes: file drawer finisher II-XII NML intact, Fully Oriented, Alert, Motor Strength 5/5, Depressed Affect Integumentary: Yes: Normal Color, Dry, Warm, Moist Lymphatic: Yes: Within Normal Limits - Diagnostic (1) Alcohol dependence with uncomplicated withdrawal Current Visit: Yes Status: Acute (2) Depression (emotion) Current Visit: Yes Status: Suspected Qualifiers: Depression Type: dysthymia Qualified Code(s): F34.1 - Dysthymic disorder (3) Diarrhea Current Visit: Yes Status: Acute Qualifiers: Diarrhea type: presumed infectious Qualified Code(s): R19.7 - Diarrhea, unspecified (4) Nicotine dependence Current Visit: No Status: Acute Qualifiers: Nicotine product type: cigarettes Substance use status: in withdrawal Qualified Code(s): F17.213 - Nicotine dependence, cigarettes, with withdrawal (5) Anemia Current Visit: Yes Status: Suspected Qualifiers: Anemia type: unspecified type Qualified Code(s): D64.9 - Anemia, unspecified (6) Methadone maintenance therapy patient Current Visit: No Status: Chronic Comment: 90 MG VERIFICATION PENDING (7) Neuropathy Current Visit: Yes Status: Chronic Cleared for Admission [facility] - Detox or Rehab [facility] Level of Care: Medically Managed Detox Regimen/Protocol: Valium [facility] Breath Alcohol Content Breath Alcohol Content: 0 Urine Pregancy Test - Result Urine Test Results: Negative- NO Line Present Urine Drug Screen - Results Drug Screen Negative: No Urine Drug Screen Results: SWETHA-Cocaine, OPI-Opiates, MTD-Methadone
[2018-07-03] MEDS ORDERED: LOPERAMIDE HCL 2 MG CAPSULE PO PRN (20:03)
[2018-07-03] MEDS ORDERED: guaiFENesin/D-METHORPHAN HB 10 ML UNIT-DOSE CUPS PO PRN (20:03)
[2018-07-03] MEDS ORDERED: MAGNESIUM CITRATE 300 ML BOTTLE PO PRN (20:03)
[2018-07-03] MEDS ORDERED: P-EPHED 60MG/TRIPROLIDI 2.5MG TABLET PO PRN (20:03)
[2018-07-03] MEDS ORDERED: MENTHOL/PHENOL 1 EACH UD MM PRN (20:03)
[2018-07-03] MEDS ORDERED: MAG HYDROX/AL HYDROX/SIMETH 30 ML UNIT-DOSE CUP PO PRN (20:03)
[2018-07-03] MEDS ORDERED: ACETAMINOPHEN 325 MG TABLET (FP) PO PRN (20:03)
[2018-07-03] MEDS ORDERED: MAGNESIUM HYDROX 2400MG/30ML ORAL SUSPENSION 30 ML CUP PO PRN (20:03)
[2018-07-03] MEDS ORDERED: diazePAM 5 MG TABLET PO ONE (20:15)
[2018-07-03] MEDS: GABAPENTIN 300 MG CAPSULE (FP) PO SCH (22:37)
[2018-07-03] MEDS: THIAMINE HCL 100 MG TABLET (FP) PO SCH (22:37)
[2018-07-03] MEDS: diazePAM 5 MG TABLET PO SCH (22:38)
[2018-07-03] MEDS: MELATONIN 5 MG TABLETS PO PRN (22:39)
[2018-07-03] MEDS: diphenhydrAMINE HCL 25 MG CAPSULE (FP) PO PRN (22:39)
[2018-07-03 23:01] LABS: URINE APPEARANCE SLCLOUDY; URINE BILIRUBIN NEGATIVE (<2.0 mg/dL); URINE COLOR YELLOW; URINE GLUCOSE (UA) NEGATIVE (NEGATIVE); URINE KETONE NEGATIVE (NEGATIVE); URINE LEUK ESTERASE 3+ (NEGATIVE); URINE NITRITE NEGATIVE (NEGATIVE); URINE PROTEIN NEGATIVE (NEGATIVE); URINE UROBILINOGEN NEGATIVE mg/dL (0.2-1.0)
[2018-07-03 23:07] LABS: EPI CELLS RARE /HPF (FEW); URINE BACTERIA RARE /hpf (NONE SEEN)
[2018-07-04] MEDS: diazePAM 5 MG TABLET PO PRN ×3 (02:13→18:26)
[2018-07-04] MEDS: GABAPENTIN 300 MG CAPSULE (FP) PO SCH ×3 (05:44→22:07)
[2018-07-04] MEDS: diazePAM 5 MG TABLET PO SCH ×3 (05:44→22:07)
[2018-07-04] MEDS ORDERED: METHADONE HCL 10 MG TABLET PO SCH (08:00)
[2018-07-04] MEDS ORDERED: METHADONE HCL 40 MG DISPERSABLE TABLET ONE (08:45)
[2018-07-04] MEDS ORDERED: METHADONE HCL 10 MG TABLET ONE (08:46)
[2018-07-04] MEDS: METHADONE 80 MG, METHADONE 10 MG PO SCH (08:51)
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
[2018-07-04] MEDS: PRENATAL VITAMINS W/ FOLIC ACID TABLET (FP) PO SCH (10:15)
[2018-07-04] MEDS: NICOTINE POLACRILEX 2 MG GUM BC PRN (10:15)
[2018-07-04] MEDS: NICOTINE 21 MG/24 HOURS TOPICAL PATCH TD SCH (10:15)
[2018-07-04] MEDS: PANTOPRAZOLE 40 MG TABLET (FP) PO SCH (10:15)
[2018-07-04] MEDS: FLUoxetine HCL 20 MG CAPSULE (FP) PO SCH (10:33)
[2018-07-04 10:48] LABS: HEMATOCRIT 29.9 % (32.4-45.2); HEMOGLOBIN 9.3 GM/dL (10.7-15.3); MCH 24.7 pg (25.7-33.7); MEAN CELL VOLUME 79.7 fl (80-96); MEAN PLT VOLUME 8.2 fl (7.5-11.1); PLATELET COUNT 218 K/MM3 (134-434); RBC 3.76 M/mm3 (3.60-5.2); RDW 19.9 % (11.6-15.6); WHITE BLOOD COUNT 4.5 K/mm3 (4.0-10.0)
--- NOTE | 2018-07-04 11:00 | EKG ---
Test Reason : Blood Pressure : / mmHG Vent. Rate : 072 BPM Atrial Rate : 072 BPM P-R Int : 142 ms QRS Dur : 070 ms QT Int : 422 ms P-R-T Axes : 031 043 022 degrees QTc Int : 462 ms NORMAL SINUS RHYTHM NORMAL ECG Confirmed by MD CHARLOTTE, RADHA ([id number]) on 07/04/2018 10:59:53 AM Referred By: Confirmed By:RADHA PORTER MD
[2018-07-04 11:23] LABS: ALBUMIN 2.8 g/dl (3.4-5.0); ALK PHOS 154 U/L (45-117); ANION GAP 8 MMOL/L (8-16); BILIRUBIN,TOTAL 0.4 mg/dL (0.2-1); BLOOD UREA NITROGEN 13 mg/dL (7-18); CALCIUM 7.9 mg/dL (8.5-10.1); CHLORIDE 105 mmol/L (98-107); CO2 25 mmol/L (21-32); CREATININE 0.6 mg/dL (0.55-1.3); GLUCOSE,RANDOM 70 mg/dL (74-106); POTASSIUM 3.9 mmol/L (3.5-5.1); SGOT/AST 84 U/L (15-37); SGPT/ALT 98 U/L (13-61); SODIUM 138 mmol/L (136-145); TOT PROT 6.9 g/dl (6.4-8.2)
--- NOTE | 2018-07-04 13:00 | PN ---
S CIWA - CIWA Score Nausea/Vomitin-Mild Nausea/No Vomiting Muscle Tremors: 3 Anxiety: 3 Agitation: 2 Paroxysmal Sweats: 1-Minimal Palms Moist Orientation: 1-Uncertain about Date Tacttile Disturbances: 1-Very Mild Itch/Numbness Auditory Disturbances: 0-None Visual Disturbances: 1-Very Mild Sensitivity Headache: 1-Very Mild CIWA-Ar Total Score: 14 [facility] Progress Note (SOAP) Subjective: sweat tremor anxiety restlessness headaches Objective: 07/04/18 13:01 Vital Signs Temperature 97.5 F L 07/04/18 09:31 Pulse Rate 80 07/04/18 09:31 Respiratory Rate 18 07/04/18 09:31 Blood Pressure 125/83 07/04/18 09:31 O2 Sat by Pulse Oximetry (%) Laboratory Last Values WBC 4.5 K/mm3 (4.0-10.0) 07/04/18 07:00 RBC 3.76 M/mm3 (3.60-5.2) 07/04/18 07:00 Hgb 9.3 GM/dL (10.7-15.3) L 07/04/18 07:00 Hct 29.9 % (32.4-45.2) L 07/04/18 07:00 MCV 79.7 fl (80-96) L 07/04/18 07:00 MCH 24.7 pg (25.7-33.7) L D 07/04/18 07:00 MCHC 31.0 g/dl (32.0-36.0) L 07/04/18 07:00 RDW 19.9 % (11.6-15.6) H 07/04/18 07:00 Plt Count 218 K/MM3 (134-434) D 07/04/18 07:00 MPV 8.2 fl (7.5-11.1) D 07/04/18 07:00 Sodium 138 mmol/L (136-145) 07/04/18 07:00 Potassium 3.9 mmol/L (3.5-5.1) 07/04/18 07:00 Chloride 105 mmol/L (98-107) 07/04/18 07:00 Carbon Dioxide 25 mmol/L (21-32) 07/04/18 07:00 Anion Gap 8 MMOL/L (8-16) 07/04/18 07:00 BUN 13 mg/dL (7-18) 07/04/18 07:00 Creatinine 0.6 mg/dL (0.55-1.3) 07/04/18 07:00 Creat Clearance w eGFR > 60 (>60) 07/04/18 07:00 Random Glucose 70 mg/dL (74-106) L 07/04/18 07:00 Calcium 7.9 mg/dL (8.5-10.1) L 07/04/18 07:00 Total Bilirubin 0.4 mg/dL (0.2-1) 07/04/18 07:00 AST 84 U/L (15-37) H 07/04/18 07:00 ALT 98 U/L (13-61) H 07/04/18 07:00 Alkaline Phosphatase 154 U/L (45-117) H 07/04/18 07:00 Total Protein 6.9 g/dl (6.4-8.2) 07/04/18 07:00 Albumin 2.8 g/dl (3.4-5.0) L 07/04/18 07:00 Urine Color Yellow 07/03/18 21:31 Urine Appearance Slcloudy 07/03/18 21:31 Urine pH 6.0 (5.0-8.0) 07/03/18 21:31 Ur Specific [place] 1.016 (1.001-1.035) 07/03/18 21:31 Urine Protein Negative (NEGATIVE) 07/03/18 21:31 Urine Glucose (UA) Negative (NEGATIVE) 07/03/18 21:31 Urine Ketones Negative (NEGATIVE) 07/03/18 21:31 Urine Blood 2+ (NEGATIVE) H 07/03/18 21:31 Urine Nitrite Negative (NEGATIVE) 07/03/18 21:31 Urine Bilirubin Negative (<2.0 mg/dL) 07/03/18 21: Urine Urobilinogen Negative mg/dL (0.2-1.0) 07/03/18 21:31 Ur Leukocyte Esterase 3+ (NEGATIVE) H 07/03/18 21:31 Urine WBC (Auto) 242 /hpf (3-5) 07/03/18 21:31 Urine RBC (Auto) 38 /hpf (0-3) 07/03/18 21:31 Ur Epithelial Cells Rare /HPF (FEW) 07/03/18 21:31 Urine Bacteria Rare /hpf (NONE SEEN) 07/03/18 21:31 RPR Titer Nonreactive (NONREACTIVE) 07/04/18 07:00 lab noted hypocalcemia Assessment: 07/04/18 13:02 withdrawal sx low Ca++ Plan: continue detox [facility]
[2018-07-04] MEDS ORDERED: QUEtiapine FUMARATE 50 MG TABLET PO SCH (22:00)
[2018-07-04] MEDS: THIAMINE HCL 100 MG TABLET (FP) PO SCH (22:07)
[2018-07-04] MEDS: diphenhydrAMINE HCL 25 MG CAPSULE (FP) PO PRN (22:07)
[2018-07-04] MEDS: MELATONIN 5 MG TABLETS PO PRN (22:07)
[2018-07-05] MEDS ORDERED: METHADONE HCL 40 MG DISPERSABLE TABLET ONE (04:12)
[2018-07-05] MEDS ORDERED: METHADONE HCL 10 MG TABLET ONE (04:13)
[2018-07-05] MEDS: diazePAM 5 MG TABLET PO PRN ×2 (04:38→14:09)
[2018-07-05] MEDS: METHADONE 80 MG, METHADONE 10 MG PO SCH (05:30)
[2018-07-05] MEDS: GABAPENTIN 300 MG CAPSULE (FP) PO SCH ×3 (05:30→22:23)
[2018-07-05] MEDS: PANTOPRAZOLE 40 MG TABLET (FP) PO SCH (10:55)
[2018-07-05] MEDS: NICOTINE 21 MG/24 HOURS TOPICAL PATCH TD SCH (10:55)
[2018-07-05] MEDS: FLUoxetine HCL 20 MG CAPSULE (FP) PO SCH (10:55)
[2018-07-05] MEDS: diazePAM 5 MG TABLET PO SCH ×2 (10:55→22:25)
[2018-07-05] MEDS: PRENATAL VITAMINS W/ FOLIC ACID TABLET (FP) PO SCH (10:55)
[2018-07-05] MEDS: IBUPROFEN 400 MG TABLET (FP) PO PRN ×2 (10:56→22:22)
[2018-07-05] MEDS: diphenhydrAMINE HCL 25 MG CAPSULE (FP) PO PRN ×2 (10:58→16:54)
--- NOTE | 2018-07-05 13:33 | PN ---
[facility] CIWA - CIWA Score Nausea/Vomitin-No Nausea/No Vomiting Muscle Tremors: 3 Anxiety: 2 Agitation: 3 Paroxysmal Sweats: 1-Minimal Palms Moist Orientation: 0-Oriented Tacttile Disturbances: 0-None Auditory Disturbances: 1-Very Mild Visual Disturbances: 0-None Headache: 0-None Present CIWA-Ar Total Score: 10 S Progress Note (SOAP) Subjective: tremor sweat wants to have flu shoot Objective: 07/05/18 13:31 Vital Signs Temperature 97.2 F L 07/05/18 13:09 Pulse Rate 90 07/05/18 13:09 Respiratory Rate 16 07/05/18 13:09 Blood Pressure 126/53 L 07/05/18 13:09 O2 Sat by Pulse Oximetry (%) Laboratory Last Values WBC 4.5 K/mm3 (4.0-10.0) 07/04/18 07:00 RBC 3.76 M/mm3 (3.60-5.2) 07/04/18 07:00 Hgb 9.3 GM/dL (10.7-15.3) L 07/04/18 07:00 Hct 29.9 % (32.4-45.2) L 07/04/18 07:00 MCV 79.7 fl (80-96) L 07/04/18 07:00 MCH 24.7 pg (25.7-33.7) L D 07/04/18 07:00 MCHC 31.0 g/dl (32.0-36.0) L 07/04/18 07:00 RDW 19.9 % (11.6-15.6) H 07/04/18 07:00 Plt Count 218 K/MM3 (134-434) D 07/04/18 07:00 MPV 8.2 fl (7.5-11.1) D 07/04/18 07:00 Sodium 138 mmol/L (136-145) 07/04/18 07:00 Potassium 3.9 mmol/L (3.5-5.1) 07/04/18 07:00 Chloride 105 mmol/L (98-107) 07/04/18 07:00 Carbon Dioxide 25 mmol/L (21-32) 07/04/18 07:00 Anion Gap 8 MMOL/L (8-16) 07/04/18 07:00 BUN 13 mg/dL (7-18) 07/04/18 07:00 Creatinine 0.6 mg/dL (0.55-1.3) 07/04/18 07:00 Creat Clearance w eGFR > 60 (>60) 07/04/18 07:00 Random Glucose 70 mg/dL (74-106) L 07/04/18 07:00 Calcium 7.9 mg/dL (8.5-10.1) L 07/04/18 07:00 Total Bilirubin 0.4 mg/dL (0.2-1) 07/04/18 07:00 AST 84 U/L (15-37) H 07/04/18 07:00 ALT 98 U/L (13-61) H 07/04/18 07:00 Alkaline Phosphatase 154 U/L (45-117) H 07/04/18 07:00 Total Protein 6.9 g/dl (6.4-8.2) 07/04/18 07:00 Albumin 2.8 g/dl (3.4-5.0) L 07/04/18 07:00 Urine Color Yellow 07/03/18 21:31 Urine Appearance Slcloudy 07/03/18 21:31 Urine pH 6.0 (5.0-8.0) 07/03/18 21:31 Ur Specific [place] 1.016 (1.001-1.035) 07/03/18 21:31 Urine Protein Negative (NEGATIVE) 07/03/18 21:31 Urine Glucose (UA) Negative (NEGATIVE) 07/03/18 21:31 Urine Ketones Negative (NEGATIVE) 07/03/18 21: Urine Blood 2+ (NEGATIVE) H 07/03/18 21:31 Urine Nitrite Negative (NEGATIVE) 07/03/18 21:31 Urine Bilirubin Negative (<2.0 mg/dL) 07/03/18 21: Urine Urobilinogen Negative mg/dL (0.2-1.0) 07/03/18 21:31 Ur Leukocyte Esterase 3+ (NEGATIVE) H 07/03/18 21:31 Urine WBC (Auto) 242 /hpf (3-5) 07/03/18 21:31 Urine RBC (Auto) 38 /hpf (0-3) 07/03/18 21:31 Ur Epithelial Cells Rare /HPF (FEW) 07/03/18 21:31 Urine Bacteria Rare /hpf (NONE SEEN) 07/03/18 21:31 RPR Titer Nonreactive (NONREACTIVE) 07/04/18 07:00 lab noted repeat ua 07/05/18 13:33 Assessment: 07/05/18 13:33 alcohol withdrawal sx Plan: continue detox
[2018-07-05] MEDS: NICOTINE POLACRILEX 2 MG GUM BC PRN (14:12)
--- NOTE | 2018-07-05 18:15 | PN ---
[facility] Progress Note Note: Psychiatric nurse practitioner note: Pt. observed sleeping in the common area and while watching television. Will lower seroquel to 25mg qhs.
[2018-07-05] MEDS ORDERED: QUEtiapine FUMARATE 50 MG TABLET PO SCH (22:00)
[2018-07-05] MEDS: MELATONIN 5 MG TABLETS PO PRN (22:22)
[2018-07-05] MEDS: THIAMINE HCL 100 MG TABLET (FP) PO SCH (22:25)
[2018-07-05] MEDS: QUEtiapine FUMARATE 25 MG TABLET (FP) PO SCH (22:45)
[2018-07-06 00:44] LABS: URINE APPEARANCE CLOUDY; URINE BILIRUBIN NEGATIVE (<2.0 mg/dL); URINE COLOR AMBER; URINE GLUCOSE (UA) NEGATIVE (NEGATIVE); URINE KETONE NEGATIVE (NEGATIVE); URINE NITRITE POSITIVE (NEGATIVE); URINE PROTEIN NEGATIVE (NEGATIVE); URINE UROBILINOGEN NEGATIVE mg/dL (0.2-1.0)
[2018-07-06 00:45] LABS: URINE LEUK ESTERASE 2+ (NEGATIVE)
[2018-07-06 00:53] LABS: EPI CELLS FEW /HPF (FEW); URINE BACTERIA MANY /hpf (NONE SEEN); URINE HYALINE CAST 52 /lpf; URINE MUCUS RARE
[2018-07-06] MEDS: diazePAM 5 MG TABLET PO PRN ×4 (04:01→17:24)
[2018-07-06] MEDS ORDERED: METHADONE HCL 10 MG TABLET ONE (05:13)
[2018-07-06] MEDS ORDERED: METHADONE HCL 40 MG DISPERSABLE TABLET ONE (05:13)
[2018-07-06] MEDS: METHADONE 80 MG, METHADONE 10 MG PO SCH (05:28)
[2018-07-06] MEDS: GABAPENTIN 300 MG CAPSULE (FP) PO SCH ×3 (05:28→22:05)
[2018-07-06] MEDS: diazePAM 5 MG TABLET PO SCH ×2 (09:51→22:06)
--- NOTE | 2018-07-06 10:23 | PN ---
[facility] Progress Note Note: Vital Signs Temperature 97.7 F 07/06/18 09:19 Pulse Rate 70 07/06/18 09:19 Respiratory Rate 16 07/06/18 09:19 Blood Pressure 124/71 07/06/18 09:19 O2 Sat by Pulse Oximetry (%) Laboratory Last Values WBC 4.5 K/mm3 (4.0-10.0) 07/04/18 07:00 RBC 3.76 M/mm3 (3.60-5.2) 07/04/18 07:00 Hgb 9.3 GM/dL (10.7-15.3) L 07/04/18 07:00 Hct 29.9 % (32.4-45.2) L 07/04/18 07:00 MCV 79.7 fl (80-96) L 07/04/18 07:00 MCH 24.7 pg (25.7-33.7) L D 07/04/18 07:00 MCHC 31.0 g/dl (32.0-36.0) L 07/04/18 07:00 RDW 19.9 % (11.6-15.6) H 07/04/18 07:00 Plt Count 218 K/MM3 (134-434) D 07/04/18 07:00 MPV 8.2 fl (7.5-11.1) D 07/04/18 07:00 Sodium 138 mmol/L (136-145) 07/04/18 07:00 Potassium 3.9 mmol/L (3.5-5.1) 07/04/18 07:00 Chloride 105 mmol/L (98-107) 07/04/18 07:00 Carbon Dioxide 25 mmol/L (21-32) 07/04/18 07:00 Anion Gap 8 MMOL/L (8-16) 07/04/18 07:00 BUN 13 mg/dL (7-18) 07/04/18 07:00 Creatinine 0.6 mg/dL (0.55-1.3) 07/04/18 07:00 Creat Clearance w eGFR > 60 (>60) 07/04/18 07:00 Random Glucose 70 mg/dL (74-106) L 07/04/18 07:00 Calcium 7.9 mg/dL (8.5-10.1) L 07/04/18 07:00 Total Bilirubin 0.4 mg/dL (0.2-1) 07/04/18 07:00 AST 84 U/L (15-37) H 07/04/18 07:00 ALT 98 U/L (13-61) H 07/04/18 07:00 Alkaline Phosphatase 154 U/L (45-117) H 07/04/18 07:00 Total Protein 6.9 g/dl (6.4-8.2) 07/04/18 07:00 Albumin 2.8 g/dl (3.4-5.0) L 07/04/18 07:00 Urine Color Stephania 07/06/18 00:25 Urine Appearance Cloudy 07/06/18 00:25 Urine pH 5.0 (5.0-8.0) 07/06/18 00:25 Ur Specific [place] 1.017 (1.001-1.035) 07/06/18 00:25 Urine Protein Negative (NEGATIVE) 07/06/18 00:25 Urine Glucose (UA) Negative (NEGATIVE) 07/06/18 00:25 Urine Ketones Negative (NEGATIVE) 07/06/18 00:25 Urine Blood Negative (NEGATIVE) 07/06/18 00:25 Urine Nitrite Positive (NEGATIVE) 07/06/18 00:25 Urine Bilirubin Negative (<2.0 mg/dL) 07/06/18 00:25 Urine Urobilinogen Negative mg/dL (0.2-1.0) 07/06/18 00:25 Ur Leukocyte Esterase 2+ (NEGATIVE) H 07/06/18 00:25 Urine WBC (Auto) 90 /hpf (3-5) 07/06/18 00:25 Urine RBC (Auto) 4 /hpf (0-3) 07/06/18 00:25 Ur Epithelial Cells Few /HPF (FEW) 07/06/18 00:25 Urine Bacteria Many /hpf (NONE SEEN) 07/06/18 00:25 Hyaline Casts 52 /lpf 07/06/18 00:25 Urine Mucus Rare 07/06/18 00:25 RPR Titer Nonreactive (NONREACTIVE) 07/04/18 07:00 interrupted sleep, anxious, fatigue Aox3 no distress no adventitious breath sounds full ROM, ambulating independently in the unit withdrawal sx increase PO fluids continue to monitor if stable d/c in AM
[2018-07-06] MEDS: FLUoxetine HCL 20 MG CAPSULE (FP) PO SCH (11:23)
[2018-07-06] MEDS: PANTOPRAZOLE 40 MG TABLET (FP) PO SCH (11:24)
[2018-07-06] MEDS: PRENATAL VITAMINS W/ FOLIC ACID TABLET (FP) PO SCH (11:25)
[2018-07-06] MEDS: NICOTINE 21 MG/24 HOURS TOPICAL PATCH TD SCH (11:26)
[2018-07-06] MEDS ORDERED: FLU VACCINE QUAD 60 MCG/0.5 ML (MDV 18-19) IM ONE (12:00)
[2018-07-06] MEDS: diphenhydrAMINE HCL 25 MG CAPSULE (FP) PO PRN (12:05)
[2018-07-06] MEDS: THIAMINE HCL 100 MG TABLET (FP) PO SCH (22:05)
[2018-07-06] MEDS: QUEtiapine FUMARATE 25 MG TABLET (FP) PO SCH (22:06)
[2018-07-06] MEDS: MELATONIN 5 MG TABLETS PO PRN (22:07)
[2018-07-07] MEDS: diphenhydrAMINE HCL 25 MG CAPSULE (FP) PO PRN (03:34)
[2018-07-07] MEDS ORDERED: METHADONE HCL 40 MG DISPERSABLE TABLET ONE (04:43)
[2018-07-07] MEDS ORDERED: METHADONE HCL 10 MG TABLET ONE (04:44)
[2018-07-07] MEDS: METHADONE 80 MG, METHADONE 10 MG PO SCH (05:04)
[2018-07-07] MEDS: GABAPENTIN 300 MG CAPSULE (FP) PO SCH (05:04)
--- NOTE | 2018-07-07 09:26 | DS ---
[facility] Detox Discharge Summary Admission Date: 07/03/18 Discharge Date: 07/07/18 - History Present History: Alcohol Dependence, Cannabis Dependence, Opioid Dependence, Sedative Dependence, MMTP - Physical Exam Results Vital Signs: Vital Signs Temperature 98.1 F 07/07/18 07:45 Pulse Rate 89 07/07/18 07:45 Respiratory Rate 18 07/07/18 07:45 Blood Pressure 110/68 07/07/18 07:45 O2 Sat by Pulse Oximetry (%) - Treatment Hospital Course: Detox Protocol Followed, Detoxed Safely, Responded well, Discharged Condition Good, Rehab Referral Accepted - Medication Discharge Medications: Ambulatory Orders Gabapentin [Neurontin -] 800 mg PO TID #90 capsule 12/22/17 Pantoprazole Sodium [Protonix -] 40 mg PO DAILY tablet.ec 12/22/17 Methadone [Dolophine -] 90 mg PO DAILY 12/23/17 Fluoxetine HCl [Prozac] 20 mg PO DAILY 07/04/18 Quetiapine Fumarate [Seroquel -] 50 mg PO HS 07/04/18 Gabapentin [Neurontin -] 300 mg PO TID #21 capsule 07/06/18 Pantoprazole Sodium [Protonix -] 40 mg PO DAILY #30 tablet.ec 07/06/18 - Diagnosis (1) Alcohol dependence with uncomplicated withdrawal Current Visit: Yes Status: Chronic (2) Diarrhea Current Visit: Yes Status: Acute Qualifiers: Diarrhea type: presumed infectious Qualified Code(s): R19.7 - Diarrhea, unspecified (3) Insomnia Current Visit: Yes Status: Chronic (4) Methadone maintenance therapy patient Current Visit: Yes Status: Chronic (5) Mood disorder Current Visit: Yes Status: Chronic (6) Neuropathy Current Visit: Yes Status: Chronic (7) Nicotine dependence Current Visit: Yes Status: Chronic Qualifiers: Nicotine product type: cigarettes Substance use status: in withdrawal Qualified Code(s): F17.213 - Nicotine dependence, cigarettes, with withdrawal (8) Anemia Current Visit: Yes Status: Suspected Qualifiers: Anemia type: unspecified type Qualified Code(s): D64.9 - Anemia, unspecified (9) Depression (emotion) Current Visit: Yes Status: Suspected Qualifiers: Depression Type: dysthymia Qualified Code(s): F34.1 - Dysthymic disorder (10) Hepatitis C carrier Current Visit: Yes Status: Resolved (11) Alcohol dependence Current Visit: No Status: Acute (12) Sedative, hypnotic or anxiolytic dependence with withdrawal, uncomplicated Current Visit: No Status: Acute (13) Substance induced mood disorder Current Visit: No Status: Acute (14) Weight loss Current Visit: No Status: Acute (15) Bipolar disorder Current Visit: No Status: Chronic Qualifiers: Active/Remission status: in partial remission Most recent bipolar episode type: hypomanic Qualified Code(s): F31.71 - Bipolar disorder, in partial remission, most recent episode hypomanic (16) Chronic pain Current Visit: No Status: Chronic Qualifiers: Chronic pain type: due to trauma Qualified Code(s): G89.21 - Chronic pain due to trauma (17) Cocaine dependence Current Visit: No Status: Chronic Qualifiers: (18) GERD (gastroesophageal reflux disease) Current Visit: No Status: Chronic Qualifiers: Esophagitis presence: without esophagitis Qualified Code(s): K21.9 - Gastro -esophageal reflux disease without esophagitis (19) Opioid dependence on agonist therapy Current Visit: No Status: Chronic - AMA Did Patient Leave Against Medical Advice: No
[2018-07-07 09:38] VITALS: BP 102/56; PULSE 87; TEMP 97.6
[2018-07-07] MEDS ORDERED: diazePAM 5 MG TABLET PO SCH (10:00)
[2018-07-07] MEDS: PANTOPRAZOLE 40 MG TABLET (FP) PO SCH (10:22)
[2018-07-07] MEDS: PRENATAL VITAMINS W/ FOLIC ACID TABLET (FP) PO SCH (10:23)
[2018-07-07] MEDS: FLUoxetine HCL 20 MG CAPSULE (FP) PO SCH (10:23)
[2018-07-07] MEDS: NICOTINE 21 MG/24 HOURS TOPICAL PATCH TD SCH (10:23)
--- NOTE | 2018-07-11 14:57 | PN ---
S Progress Note Note: assessment done prior to leaving the unit regarding pt c/o for her hitting her elbow, no s/s of bruising, pt is able to move her arm freely with no swelling. No c/o of pain/discomfort. Pt was d/c no further treatment required.
== END 2018-07-07 11:05 | disposition home or self-care (01) | DRG 773 ==
LOC: YASAS 16:29 → Y6N 18:44
PROC: HZ2ZZZZ Detoxification Services for Substance Abuse Treatment (ICD-10-PCS; principal; 2018-07-03)
DX: F10.230 Alcohol dependence with withdrawal, uncomplicated (principal); F13.230 Sedative, hypnotic or anxiolytic dependence with withdrawal, uncomplicated; F14.20 Cocaine dependence, uncomplicated; F12.20 Cannabis dependence, uncomplicated; F11.20 Opioid dependence, uncomplicated; F19.24 Other psychoactive substance dependence with psychoactive substance-induced mood disorder; F31.71 Bipolar disorder, in partial remission, most recent episode hypomanic; F34.1 Dysthymic disorder; F39 Unspecified mood [affective] disorder; D64.9 Anemia, unspecified; G62.9 Polyneuropathy, unspecified; B18.2 Chronic viral hepatitis C; R19.7 Diarrhea, unspecified; R63.4 Abnormal weight loss; Z68.22 Body mass index [BMI] 22.0-22.9, adult; Z98.84 Bariatric surgery status; Z91.5 Personal history of self-harm
CPT/HCPCS: 36415; 80053; 81003; 81015; 85027; 86593; 90688; 93005; 93010; G0008

== ENCOUNTER 2018-12-25 10:37 | Inpatient (IN) | payer BC ==
[2018-12-25 11:57] VITALS: BMI 28.7
--- NOTE | 2018-12-25 12:56 | HP ---
CIWA Score Nausea/Vomitin-Mild Nausea/No Vomiting Muscle Tremors: 4-Moderate,w/Arms Extend Anxiety: 4-Mod. Anxious/Guarded Agitation: 4-Moderately Restless Paroxysmal Sweats: 3 Orientation: 0-Oriented Tacttile Disturbances: 0-None Auditory Disturbances: 0-None Visual Disturbances: 0-None Headache: 0-None Present CIWA-Ar Total Score: 16 - Admission Criteria OASAS Guidelines: Admission for Medically Managed Detox: Requires at least one of the followin. CIWA greater than 12 2. Seizures within the past 24 hours 3. Delirium tremens within the past 24 hours 4. Hallucinations within the past 24 hours 5. Acute intervention needed for co occurring medical disorder 6. Acute intervention needed for co occurring psychiatric disorder 7. Severe withdrawal that cannot be handled at a lower level of care (continued vomiting, continued diarrhea, abnormal vital signs) requiring intravenous medication and/or fluids 8. Admission ROS [facility] Chief Complaint: I was clean and sober for quite some time and recently relapsed and I need help to stop using. Allergies/Adverse Reactions: Allergies Allergy/AdvReac Type Severity Reaction Status Date / Time poppyseed oil Allergy Mild Verified 12/25/18 13:36 nut - unspecified Allergy Rash Verified 12/25/18 13:36 sarah Allergy Rash Uncoded 12/25/18 13:36 History of Present Illness: pt is a 38yr old female with a history of alcohol and xanax dependence seeking detox for treatment. Pt is also on a suboxone program [facility] in at [facility]. Exam Limitations: No Limitations - Ebola screening Have you traveled outside of the country in the last 21 days: No Have you had contact with anyone from an Ebola affected area: No Have you been sick,other than usual withdrawal symptoms: No Do you have a fever: No - Review of Systems Constitutional: Chills, Diaphoresis, Night Sweats, Changes in sleep EENT: reports: Nose Congestion Respiratory: reports: No Symptoms reported Cardiac: reports: Syncope GI: reports: Diarrhea, Poor Appetite, Poor Fluid Intake : reports: No Symptoms Reported Musculoskeletal: reports: Back Pain, Joint Pain, Muscle Pain Integumentary: reports: Flushing, Sweating Neuro: reports: Seizure (last seizure 2yrs ago xanax related), Tingling, Tremors Endocrine: reports: Excessive Sweating, Flushing, Intolerance to Cold, Intolerance to Heat Hematology: reports: Anemia (related to gastric bypass) Psychiatric: reports: Judgement Intact, Mood/Affect Appropiate, Orientated x3, Agitated, Anxious Other Systems: Reviewed and Negative Patient History - Patient Medical History Hx Anemia: Yes Hx Asthma: No Hx Chronic Obstructive Pulmonary Disease (COPD): No Hx Cancer: No Hx Cardiac Disorders: No Hx Congestive Heart Failure: No Hx Hypertension: No Hx Hypercholesterolemia: No Hx Pacemaker: No HX Cerebrovascular Accident: No Hx Seizures: Yes (drug r/o in 2016) Hx Dementia: No Hx Diabetes: No Hx Gastrointestinal Disorders: Yes (GERD) Hx Liver Disease: No Hx Genitourinary Disorders: No Hx Sexually Transmitted Disorders: No Hx Renal Disease (ESRD): No Hx Thyroid Disease: No Hx Human Immunodeficiency Virus (HIV): No (Negative 2 months ago ) Hx Hepatitis C: Yes (has appt in january 2019) Hx Depression: Yes Hx Suicide Attempt: No Hx Bipolar Disorder: Yes Hx Schizophrenia: No - Patient Surgical History Past Surgical History: Yes Hx Neurologic Surgery: No Hx Cataract Extraction: No Hx Cardiac Surgery: No Hx Lung Surgery: No Hx Breast Surgery: No Hx Breast Biopsy: No Hx Abdominal Surgery: Yes (Gastric bypass 2005) Hx Appendectomy: No Hx Cholecystectomy: Yes Hx Genitourinary Surgery: No Hx Section: Yes (2007) Hx Orthopedic Surgery: No Hx Hysterectomy: No Anesthesia Reaction: No - PPD History Previous Implant?: Yes Documented Results: Negative w/o proof - Reproductive History Patient is a Female of Child Bearing Age (11 -55 yrs old): Yes Last Menstrual Period: 02/09/18 (irregular) Patient : No - Smoking Cessation Smoking history: Current every day smoker Have you smoked in the past 12 months: Yes Aproximately how many cigarettes per day: 20 Cigars Per Day: 0 Hx Chewing Tobacco Use: No Initiated information on smoking cessation: Yes 'Breaking Loose' booklet given: 12/25/18 - Substance & Tx. History Hx Alcohol Use: Yes Hx Substance Use: Yes Substance Use Type: Alcohol, Tranquilizers Hx Substance Use Treatment: Yes (last detox [facility] 2017) - Substances Abused Alcohol Route: Oral Frequency: Daily Amount used: five 22 ounce cans/malt liquor Age of first use: 16 Date of Last Use: 12/26/18 Alprazolam (Xanax) Route: Oral Frequency: Daily Amount used: 3 of 2 mg Age of first use: 31 Date of Last Use: 12/25/18 Marijuana/Hashish Route: Smoking Frequency: 1-2 times per week Amount used: 5 to 10 dollars Age of first use: 15 Date of Last Use: 12/21/18 Family Disease History - Family Disease History Family Disease History: Other: Father (alive and well ), Mother (alive and well) , Sister (NO SISTER) Admission Physical Exam [facility] - Vital Signs Vital Signs: Vital Signs - 24 hr 12/25/18 11:56 Temperature 99.7 F H Pulse Rate 130 H Respiratory 18 Rate Blood Pressure 152/109 H - Physical General Appearance: Yes: Appropriately Dressed, Moderate Distress, Tremorous, Irritable, Sweating, Anxious HEENTM: Yes: Normal Voice, Nasal Congestion, Rhinorrhea Respiratory: Yes: Lungs Clear, Normal Breath Sounds, No Respiratory Distress Neck: Yes: No masses,lesions,Nodules Breast: Yes: Within Normal Limits Cardiology: Yes: Regular Rhythm, Regular Rate, S1, S2, Tachycardia Abdominal: Yes: Normal Bowel Sounds, Non Tender, Soft Genitourinary: Yes: Within Normal Limits Back: Yes: Normal Inspection Musculoskeletal: Yes: full range of Motion Extremities: Yes: Normal Capillary Refill, Normal Inspection, Non-Tender, Tremors Neurological: Yes: Fully Oriented, Alert, Normal Response Integumentary: Yes: Normal Color, Diaphoresis Lymphatic: Yes: Within Normal Limits - Diagnostic (1) Sedative, hypnotic or anxiolytic dependence with withdrawal, uncomplicated Current Visit: Yes Status: Chronic (2) Substance induced mood disorder Current Visit: No Status: Acute (3) Alcohol dependence with uncomplicated withdrawal Current Visit: No Status: Chronic (4) Bipolar disorder Current Visit: No Status: Chronic Qualifiers: Active/Remission status: in partial remission Most recent bipolar episode type: hypomanic Qualified Code(s): F31.71 - Bipolar disorder, in partial remission, most recent episode hypomanic Comment: As per self-report.On medication. Non compliant with OPD care. Pt. requesting to restart medications while in detox. (5) Chronic pain Current Visit: Yes Status: Chronic Qualifiers: Chronic pain type: due to trauma Qualified Code(s): G89.21 - Chronic pain due to trauma (6) Cocaine dependence Current Visit: Yes Status: Chronic Qualifiers: Substance use status: uncomplicated (7) GERD (gastroesophageal reflux disease) Current Visit: Yes Status: Chronic Qualifiers: Esophagitis presence: without esophagitis Qualified Code(s): K21.9 - Gastro -esophageal reflux disease without esophagitis (8) Insomnia Current Visit: No Status: Chronic (9) Mood disorder Current Visit: No Status: Chronic (10) Neuropathy Current Visit: No Status: Chronic (11) Nicotine dependence Current Visit: Yes Status: Chronic Qualifiers: Nicotine product type: cigarettes Substance use status: uncomplicated Qualified Code(s): F17.210 - Nicotine dependence, cigarettes, uncomplicated (12) Anemia Current Visit: Yes Status: Suspected Qualifiers: Anemia type: unspecified type Qualified Code(s): D64.9 - Anemia, unspecified (13) Depression (emotion) Current Visit: No Status: Suspected Qualifiers: Depression Type: dysthymia Qualified Code(s): F34.1 - Dysthymic disorder (14) Hepatitis C carrier Current Visit: Yes Status: Chronic (15) Encounter for monitoring Suboxone maintenance therapy Current Visit: Yes Status: Chronic Cleared for Admission S - Detox or Rehab [facility] Level of Care: Medically Managed Detox Regimen/Protocol: Valium [facility] Breath Alcohol Content Breath Alcohol Content: 0.008 Urine Pregancy Test - Result Urine Test Results: Negative - NO Line Present Urine Drug Screen - Results Drug Screen Negative: No Urine Drug Screen Results: THC-Marijuana, SWETHA-Cocaine, BZO-Benzodiazepines, BUP- Suboxone Inpatient Rehab Admission - Rehab Decision to Admit Inpatient rehab admission?: No
[2018-12-25] MEDS ORDERED: MAGNESIUM CITRATE 300 ML BOTTLE PO PRN (13:03)
[2018-12-25] MEDS ORDERED: ACETAMINOPHEN 325 MG TABLET (FP) PO PRN ×2 (13:03)
[2018-12-25] MEDS ORDERED: MENTHOL/PHENOL 1 EACH UD MM PRN (13:03)
[2018-12-25] MEDS ORDERED: MAG HYDROX/AL HYDROX/SIMETH 30 ML UNIT-DOSE CUP PO PRN (13:03)
[2018-12-25] MEDS ORDERED: P-EPHED 60MG/TRIPROLIDI 2.5MG TABLET PO PRN (13:03)
[2018-12-25] MEDS ORDERED: BISMUTH SUBSALICYLATE 262 MG/15 ML BTL PO PRN (13:03)
[2018-12-25] MEDS ORDERED: diazePAM 5 MG TABLET PO ONE (13:03)
[2018-12-25] MEDS ORDERED: ONDANSETRON *ODT* 4 MG TABLET SL PRN (13:03)
[2018-12-25] MEDS ORDERED: MELATONIN 5 MG TABLETS PO PRN (13:03)
[2018-12-25] MEDS ORDERED: MAGNESIUM HYDROX 2400MG/30ML ORAL SUSPENSION 30 ML CUP PO PRN (13:03)
[2018-12-25] MEDS: diazePAM 5 MG TABLET PO SCH ×2 (15:48→22:11)
[2018-12-25] MEDS: BACLOFEN 10 MG TABLET (FP) PO PRN ×2 (15:48→22:11)
[2018-12-25] MEDS ORDERED: cloNIDine HCL 0.1 MG TABLET PO ONE (15:49)
--- NOTE | 2018-12-25 15:52 | PN ---
S Progress Note Note: bp 155/110,history of hypertension,withdrawal symptom,will give clonidinine 0.2 mg po now,close monitoring
--- NOTE | 2018-12-25 16:15 | PN ---
[facility] Progress Note Note: Verified Suboxone order with admitting provider, Mildred Leon NP. Patient to have dose of Suboxone 8mg at 10pm and start full dose of 24mg daily-16mg qam and 8mg qpm starting tomorrow.
[2018-12-25] MEDS: NICOTINE POLACRILEX 4 MG GUM BUC PRN (16:41)
[2018-12-25] MEDS: diazePAM 5 MG TABLET PO PRN (18:00)
[2018-12-25] MEDS ORDERED: BUPRENORPHINE/NALOXONE 8 MG/2 MG FILM PACKET SL ONE ×2 (20:00→22:00)
[2018-12-25] MEDS: IBUPROFEN 400 MG TABLET (FP) PO PRN (20:59)
[2018-12-25] MEDS ORDERED: BUPRENORPHINE/NALOXONE 8 MG/2 MG FILM PACKET SL SCH (22:00)
[2018-12-25] MEDS: cloNIDine HCL 0.1 MG TABLET PO SCH (22:11)
[2018-12-25] MEDS: THIAMINE HCL 100 MG TABLET (FP) PO SCH (22:11)
[2018-12-26] MEDS: diazePAM 5 MG TABLET PO PRN ×4 (01:39→20:09)
[2018-12-26] MEDS: diazePAM 5 MG TABLET PO SCH ×3 (05:16→22:24)
--- NOTE | 2018-12-26 08:55 | PN ---
[facility] CIWA - CIWA Score Nausea/Vomitin-No Nausea/No Vomiting Muscle Tremors: 2 Anxiety: 4-Mod. Anxious/Guarded Agitation: 3 Paroxysmal Sweats: 1-Minimal Palms Moist Orientation: 1-Uncertain about Date Tacttile Disturbances: 0-None Auditory Disturbances: 0-None Visual Disturbances: 0-None Headache: 0-None Present CIWA-Ar Total Score: 11 S Progress Note (SOAP) Subjective: patient preferring suboxone 24-6 mg po once a day at 6 am "I always take my suboxone at 6 am" in respect to patients' preference that suboxone ordered at 6 am reporting anxious about the schedule of the suboxone and overly worry about that the facility can not accommodate her schedule emotional assurance given that patients' preference has been honored and executed alcohol and benzo withdrawal symptoms are tremor restlessness sweating and anxious Objective: 12/26/18 08:58 Vital Signs Temperature 96.9 F L 12/26/18 06:06 Pulse Rate 73 12/26/18 06:06 Respiratory Rate 18 12/26/18 06:06 Blood Pressure 93/61 12/26/18 06:06 O2 Sat by Pulse Oximetry (%) 12/26/18 08:59 lab pending Assessment: 12/26/18 08:59 alcohol and benzo withdrawal sx Plan: continue detox
[2018-12-26 09:23] LABS: HEMATOCRIT 33.2 % (32.4-45.2); MCH 24.9 pg (25.7-33.7); MEAN CELL VOLUME 75.4 fl (80-96); MEAN PLT VOLUME 8.8 fl (7.5-11.1); PLATELET COUNT 195 K/MM3 (134-434); RBC 4.41 M/mm3 (3.60-5.2); RDW 19.7 % (11.6-15.6); WHITE BLOOD COUNT 7.6 K/mm3 (4.0-10.0)
[2018-12-26] MEDS: PANTOPRAZOLE 40 MG TABLET (FP) PO SCH (09:24)
[2018-12-26] MEDS: PRENATAL VITAMINS W/ FOLIC ACID TABLET (FP) PO SCH (09:24)
[2018-12-26] MEDS: NICOTINE 21 MG/24 HOURS TOPICAL PATCH TD SCH (09:24)
[2018-12-26 09:38] LABS: ALBUMIN 3.4 g/dl (3.4-5.0); ALK PHOS 251 U/L (45-117); ANION GAP 9 MMOL/L (8-16); BILIRUBIN,TOTAL 0.8 mg/dL (0.2-1); BLOOD UREA NITROGEN 14 mg/dL (7-18); CALCIUM 7.9 mg/dL (8.5-10.1); CHLORIDE 109 mmol/L (98-107); CO2 20 mmol/L (21-32); GLUCOSE,RANDOM 203 mg/dL (74-106); POTASSIUM 3.9 mmol/L (3.5-5.1); SGOT/AST 105 U/L (15-37); SGPT/ALT 116 U/L (13-61); SODIUM 139 mmol/L (136-145); TOT PROT 7.5 g/dl (6.4-8.2)
[2018-12-26] MEDS ORDERED: BUPRENORPHINE/NALOXONE 8 MG/2 MG FILM PACKET SL ONE (10:00)
[2018-12-26] MEDS ORDERED: BUPRENORPHINE/NALOXONE 8 MG/2 MG FILM PACKET SL SCH ×2 (10:00→22:00)
--- NOTE | 2018-12-26 10:45 | EKG ---
Test Reason : Blood Pressure : / mmHG Vent. Rate : 109 BPM Atrial Rate : 109 BPM P-R Int : 148 ms QRS Dur : 072 ms QT Int : 346 ms P-R-T Axes : 026 019 016 degrees QTc Int : 465 ms SINUS TACHYCARDIA OTHERWISE NORMAL ECG WHEN COMPARED WITH ECG OF 03-JUL-2018 21:44, VENT. RATE HAS INCREASED BY 37 BPM Confirmed by Fausto Ortiz MD ([id number]) on 12/26/2018 10:45:01 AM Referred By: Confirmed By:Fausto Ortiz MD
[2018-12-26] MEDS: hydrOXYzine PAMOATE 25 MG CAPSULE (FP) PO PRN (12:31)
--- NOTE | 2018-12-26 12:54 | CONSULT ---
[facility] Psychiatric Consult - Data Date of interview: 12/26/18 Admission source: [facility] Identifying data: This is one of multiple admissions to [facility] for this 38 y/ o female self-referred for detoxification (alcohol, xanax, cocaine, heroin). Interviewed on . Patient is single, a mother of one, domiciled ( 3/4 housing), unemployed and deprived of any source of income. Substance Abuse History: Confirmed by the patient in this session. Details in current [facility] report as follows : Smoking history: Current every day smoker. Have you smoked in the past 12 months: Yes. Aproximately how many cigarettes per day: 20. Cigars Per Day: 0. Hx Chewing Tobacco Use: No. Initiated information on smoking cessation: Yes. 'Breaking Loose' booklet given: . - Substance & Tx. History. Hx Alcohol Use: Yes. Hx Substance Use: Yes. Substance Use Type: Alcohol, Tranquilizers. Hx Substance Use Treatment: Yes ( last detox [facility] 2017). - Substances Abused. Alcohol. Route: Oral. Frequency: Daily. Amount used: five 22 ounce cans/malt liquor. Age of first use: 16. Date of Last Use: 12/26/18. Alprazolam (Xanax). Route: Oral. Frequency: Daily. Amount used: 3 of 2 mg. Age of first use: 31. Date of Last Use: 12/25/18. Marijuana/Hashish. Route: Smoking. Frequency: 1-2 times per week. Amount used: 5 to 10 dollars. Age of first use: 15. Date of Last Use: 12/21/18 Medical History: Remarkable for a history of gastric bypass, GERD, hepatitis C and intestinal infection with staphylococcus in 2017. Psychiatric History: Onset of psychiatric issues : age 17. Patient saw a psychiatrist for the first time at an [facility] clinic in [place] for depression. she got prescribed sertraline, later changed to fluoxetine due to poor response. Patient endorses a history of 2-3 psychiatric hospitalizations ( Nito Freitas at [facility]). Last hospitalized two years ago. Ms Paz sees a psychiatrist at the [facility], a [facility] of the [facility] (currently on suboxone 24 mg/day). Patient is maintained on lexapro 5 mg/day + seroquel 100 mg/am + 200 mg/hs + neurontin 400 mg/tid (confirmed by refills issued 11/30 - 12/02/18 at [facility]). Adherence to medications : questionable. Patient denies history of suicide attempts. Physical/Sexual Abuse/Trauma History: Patient declines discussion of this domain. Additional Comment: Urine Drug Screen Results: THC-Marijuana, SWETHA-Cocaine, BZO- Benzodiazepines, BUP-Suboxone. Noted. Mental Status Exam - Mental Status Exam Alert and Oriented to: Time, Place, Person Cognitive Function: Good Patient Appearance: Well Groomed Mood: Withdrawn, Anxious, Apprehensive Affect: Mood Congruent, Constricted Patient Behavior: Fatigued, Cooperative Speech Pattern: Clear, Appropriate Voice Loudness: Normal Thought Process: Goal Oriented Thought Disorder: Not Present Hallucinations: Denies Suicidal Ideation: Denies Homicidal Ideation: Denies Insight/Judgement: Poor Sleep: Poorly, Difficulty falling asleep Appetite: Good Muscle strength/Tone: Normal Gait/Station: Normal Psychiatric Findings - Problem List ([place] 1, 2,3) (1) Alcohol dependence with uncomplicated withdrawal Current Visit: Yes Status: Acute (2) Sedative, hypnotic or anxiolytic dependence with withdrawal, uncomplicated Current Visit: Yes Status: Acute (3) Opioid dependence on agonist therapy Current Visit: Yes Status: Chronic (4) Cocaine dependence Current Visit: Yes Status: Chronic Qualifiers: Substance use status: uncomplicated Qualified Code(s): F14.20 - Cocaine dependence, uncomplicated (5) Cannabis abuse Current Visit: Yes Status: Chronic (6) Nicotine dependence Current Visit: Yes Status: Chronic Qualifiers: Nicotine product type: cigarettes Substance use status: uncomplicated Qualified Code(s): F17.210 - Nicotine dependence, cigarettes, uncomplicated (7) Substance induced mood disorder Current Visit: Yes Status: Chronic (8) Bipolar disorder Current Visit: Yes Status: Chronic Qualifiers: Active/Remission status: in partial remission Most recent bipolar episode type: hypomanic Qualified Code(s): F31.71 - Bipolar disorder, in partial remission, most recent episode hypomanic Comment: As per self-report.On medication. Non compliant with OPD care. Pt. requesting to restart medications while in detox. (9) Insomnia Current Visit: Yes Status: Chronic - Initial Treatment Plan Initial Treatment Plan: Psychoeducation. Records at [facility] : reviewed. Sleep hygiene. Detoxification. Medications resumed : lexapro 5 mg po daily + neurontin 400 mg po tid + seroquel 200 mg po hs. Side effects/benefits of each medication are discussed with the patient. Consent (verbal) granted to MD. Chapman.
[2018-12-26] MEDS: NICOTINE POLACRILEX 4 MG GUM BUC PRN ×2 (13:58→19:48)
[2018-12-26] MEDS: GABAPENTIN 400 MG CAPSULE (FP) PO SCH ×2 (14:23→22:24)
[2018-12-26] MEDS: IBUPROFEN 400 MG TABLET (FP) PO PRN ×2 (16:50→22:27)
[2018-12-26] MEDS ORDERED: QUEtiapine FUMARATE 200 MG TABLET PO SCH (22:00)
[2018-12-26] MEDS: cloNIDine HCL 0.1 MG TABLET PO SCH (22:29)
[2018-12-26] MEDS: THIAMINE HCL 100 MG TABLET (FP) PO SCH (22:29)
[2018-12-27] MEDS: diazePAM 5 MG TABLET PO PRN ×4 (00:12→13:25)
[2018-12-27] MEDS ORDERED: diazePAM 5 MG TABLET PO ONE (06:00)
[2018-12-27] MEDS ORDERED: BUPRENORPHINE/NALOXONE 8 MG/2 MG FILM PACKET SL SCH (06:00)
[2018-12-27] MEDS: GABAPENTIN 400 MG CAPSULE (FP) PO SCH ×2 (06:12→13:26)
[2018-12-27] MEDS: NICOTINE POLACRILEX 4 MG GUM BUC PRN ×2 (06:24→08:56)
[2018-12-27] MEDS ORDERED: COLLOIDAL OATMEAL 1 BAR EACH TP PRN (09:33)
[2018-12-27] MEDS ORDERED: ESCITALOPRAM OXALATE 10 MG TABLET (FP) PO SCH (10:00)
[2018-12-27] MEDS: PRENATAL VITAMINS W/ FOLIC ACID TABLET (FP) PO SCH (10:28)
[2018-12-27] MEDS: PANTOPRAZOLE 40 MG TABLET (FP) PO SCH (10:28)
[2018-12-27] MEDS: NICOTINE 21 MG/24 HOURS TOPICAL PATCH TD SCH (10:29)
[2018-12-27] MEDS ORDERED: MINERAL OIL/PETROLAT/WATER TOPICAL CREAM 113 GM JAR TP SCH (10:30)
[2018-12-27 10:36] VITALS: BP 110/70; PULSE 68; TEMP 97.6
[2018-12-27] MEDS: hydrOXYzine PAMOATE 25 MG CAPSULE (FP) PO PRN (11:49)
[2018-12-27] MEDS: IBUPROFEN 400 MG TABLET (FP) PO PRN (13:25)
--- NOTE | 2018-12-27 14:34 | DS ---
[facility] Detox Discharge Summary Admission Date: 12/25/18 Discharge Date: 12/27/18 - History Present History: Alcohol Dependence, Sedative Dependence Additional Comments: 38 years old female admitted on 12/26/18 for alcohol withdrawal stabilization completed detox regimen [facility] - Physical Exam Results Vital Signs: Vital Signs Temperature 97.6 F 12/27/18 10:35 Pulse Rate 68 12/27/18 10:35 Respiratory Rate 18 12/27/18 10:35 Blood Pressure 110/70 12/27/18 10:35 O2 Sat by Pulse Oximetry (%) Pertinent Admission Physical Exam Findings: alcohol withdrawal sx Laboratory Last Values WBC 7.6 K/mm3 (4.0-10.0) 12/26/18 06:00 RBC 4.41 M/mm3 (3.60-5.2) 12/26/18 06:00 Hgb 11.0 GM/dL (10.7-15.3) 12/26/18 06:00 Hct 33.2 % (32.4-45.2) 12/26/18 06:00 MCV 75.4 fl (80-96) L 12/26/18 06:00 MCH 24.9 pg (25.7-33.7) L 12/26/18 06:00 MCHC 33.0 g/dl (32.0-36.0) 12/26/18 06:00 RDW 19.7 % (11.6-15.6) H 12/26/18 06:00 Plt Count 195 K/MM3 (134-434) 12/26/18 06:00 MPV 8.8 fl (7.5-11.1) 12/26/18 06:00 Sodium 139 mmol/L (136-145) 12/26/18 06:00 Potassium 3.9 mmol/L (3.5-5.1) 12/26/18 06:00 Chloride 109 mmol/L (98-107) H 12/26/18 06:00 Carbon Dioxide 20 mmol/L (21-32) L 12/26/18 06:00 Anion Gap 9 MMOL/L (8-16) 12/26/18 06:00 BUN 14 mg/dL (7-18) 12/26/18 06:00 Creatinine 1.0 mg/dL (0.55-1.3) 12/26/18 06:00 Creat Clearance w eGFR 62.05 (>60) 12/26/18 06:00 Random Glucose 203 mg/dL (74-106) H 12/26/18 06:00 Calcium 7.9 mg/dL (8.5-10.1) L 12/26/18 06:00 Total Bilirubin 0.8 mg/dL (0.2-1) 12/26/18 06:00 AST 105 U/L (15-37) H 12/26/18 06:00 ALT 116 U/L (13-61) H 12/26/18 06:00 Alkaline Phosphatase 251 U/L (45-117) H 12/26/18 06:00 Total Protein 7.5 g/dl (6.4-8.2) 12/26/18 06:00 Albumin 3.4 g/dl (3.4-5.0) 12/26/18 06:00 RPR Titer Nonreactive (NONREACTIVE) 12/26/18 06:00 - Treatment Hospital Course: Detox Protocol Followed, Detoxed Safely, Responded well, Discharged Condition Good, Rehab Referral Accepted Patient has Accepted a Rehab Referral to: [facility] - Medication Discharge Medications: Ambulatory Orders Pantoprazole Sodium [Protonix -] 40 mg PO DAILY tablet.ec 12/22/17 Methadone [Dolophine -] 90 mg PO DAILY 12/23/17 Fluoxetine HCl [Prozac] 20 mg PO DAILY 07/04/18 Quetiapine Fumarate [Seroquel -] 50 mg PO HS 07/04/18 Gabapentin [Neurontin -] 300 mg PO TID #21 capsule 07/06/18 Pantoprazole Sodium [Protonix -] 40 mg PO DAILY #30 tablet.ec 07/06/18 Buprenorphine HCl/Naloxone HCl [Suboxone 8 mg-2 mg Sl Tablets] 24 mg PO DAILY Clonidine HCl 0.2 mg PO HS 12/25/18 Escitalopram Oxalate [Lexapro -] 5 mg PO DAILY 12/25/18 Gabapentin 400 mg PO TID 12/25/18 Quetiapine Fumarate [Seroquel -] 200 mg PO HS 12/25/18 Quetiapine Fumarate [Seroquel] 100 tab PO DAILY 12/25/18 Escitalopram Oxalate [Lexapro -] 5 mg PO DAILY #30 tablet 12/27/18 Gabapentin [Neurontin -] 400 mg PO TID #60 capsule 12/27/18 Quetiapine Fumarate [Seroquel -] 200 mg PO HS #30 tab 12/27/18 - Diagnosis (1) Alcohol dependence with uncomplicated withdrawal Current Visit: Yes Status: Acute (2) Sedative, hypnotic or anxiolytic dependence with withdrawal, uncomplicated Current Visit: Yes Status: Acute (3) Encounter for monitoring Suboxone maintenance therapy Current Visit: Yes Status: Chronic (4) GERD (gastroesophageal reflux disease) Current Visit: Yes Status: Chronic Qualifiers: Esophagitis presence: without esophagitis Qualified Code(s): K21.9 - Gastro -esophageal reflux disease without esophagitis (5) Nicotine dependence Current Visit: Yes Status: Acute Qualifiers: Nicotine product type: cigarettes Substance use status: in withdrawal Qualified Code(s): F17.213 - Nicotine dependence, cigarettes, with withdrawal - AMA Did Patient Leave Against Medical Advice: No
== END 2018-12-27 14:35 | disposition home or self-care (01) | DRG 773 ==
LOC: YASAS 10:37 → Y3N 14:11
PROVIDERS: ADMIT Surgery; ATTEND Surgery
PROC: HZ2ZZZZ Detoxification Services for Substance Abuse Treatment (ICD-10-PCS; principal; 2018-12-25)
DX: F10.230 Alcohol dependence with withdrawal, uncomplicated (principal); F13.230 Sedative, hypnotic or anxiolytic dependence with withdrawal, uncomplicated; F14.20 Cocaine dependence, uncomplicated; F12.20 Cannabis dependence, uncomplicated; F11.10 Opioid abuse, uncomplicated; F17.213 Nicotine dependence, cigarettes, with withdrawal; F31.71 Bipolar disorder, in partial remission, most recent episode hypomanic; I10 Essential (primary) hypertension; K21.9 Gastro-esophageal reflux disease without esophagitis; B18.2 Chronic viral hepatitis C; G47.00 Insomnia, unspecified; Z86.19 Personal history of other infectious and parasitic diseases
CPT/HCPCS: 36415; 80053; 85027; 86593; 93005; 93010; J0475; J0735

== ENCOUNTER 2019-04-30 14:59 | Inpatient (IN) | payer OTHER ==
[2019-04-30 18:52] VITALS: BMI 25.8
--- NOTE | 2019-04-30 19:50 | HP ---
CIWA Score Nausea/Vomitin Muscle Tremors: None Anxiety: 3 Agitation: 3 Paroxysmal Sweats: 1-Minimal Palms Moist Orientation: 0-Oriented Tacttile Disturbances: 0-None Auditory Disturbances: 0-None Visual Disturbances: 0-None Headache: 3-Moderate CIWA-Ar Total Score: 13 - Admission Criteria OASAS Guidelines: Admission for Medically Managed Detox: Requires at least one of the followin. CIWA greater than 12 2. Seizures within the past 24 hours 3. Delirium tremens within the past 24 hours 4. Hallucinations within the past 24 hours 5. Acute intervention needed for co occurring medical disorder 6. Acute intervention needed for co occurring psychiatric disorder 7. Severe withdrawal that cannot be handled at a lower level of care (continued vomiting, continued diarrhea, abnormal vital signs) requiring intravenous medication and/or fluids 8. Admission ROS [facility] Chief Complaint: seeking help for alcohol, heroin, and cocaine use Allergies/Adverse Reactions: Allergies Allergy/AdvReac Type Severity Reaction Status Date / Time poppyseed oil Allergy Mild Verified 04/30/19 18:54 nut - unspecified Allergy Rash Verified 04/30/19 18:54 sarah Allergy Rash Uncoded 04/30/19 18:54 History of Present Illness: 39 y/o/f here for alcohol, heroin, and cocaine use. She has been drinking 4-5 24oz malt liquors and 4-5 nips of vodka daily. When she does not drink she starts to vomit, get anxious, and starts to shake. She starts to drink by 9am everyday, last drink was 12pm today. She uses 3-4 bags of heroin about 3 days a week. She uses cocaine $20-$30 everyday. She uses the cocaine and heroin IV in her arms. She spent 3 days at [facility] last week for an abscess in her right arm. She has been on Suboxone 24mg for 7 months. She started using Heroin again in the middle of December. She does not mix the Suboxone and Heroin on the same days. She is living in a [facility] right now and is currently unemployed. She has multiple abd surgeries for an intestinal tear during her in 2007. She had a seizure 9 months ago related to alcohol and benzo use. She last used Xanax 4 days ago. She uses the Xanax 2-3 times a week, 2-3 2mg sticks. She smokes a pack a day of cigarettes. - Ebola screening Have you traveled outside of the country in the last 21 days: No Have you had contact with anyone from an Ebola affected area: No Do you have a fever: No - Review of Systems Constitutional: Loss of Appetite EENT: reports: No Symptoms Reported Respiratory: reports: No Symptoms reported Cardiac: reports: No Symptoms Reported GI: reports: No Symptoms Reported, Diarrhea, Nausea Musculoskeletal: reports: No Symptoms Reported Integumentary: reports: No Symptoms Reported Neuro: reports: Headache Endocrine: reports: No Symptoms Reported Hematology: reports: No Symptoms Reported Psychiatric: reports: Agitated, Anxious Patient History - Patient Medical History Hx Anemia: Yes Hx Asthma: No Hx Chronic Obstructive Pulmonary Disease (COPD): No Hx Cancer: No Hx Cardiac Disorders: No Hx Congestive Heart Failure: No Hx Hypertension: No Hx Hypercholesterolemia: No Hx Pacemaker: No HX Cerebrovascular Accident: No Hx Seizures: No Hx Dementia: No Hx Diabetes: No Hx Gastrointestinal Disorders: No Hx Liver Disease: No Hx Genitourinary Disorders: No Hx Sexually Transmitted Disorders: No Hx Renal Disease (ESRD): No Hx Thyroid Disease: No Hx Human Immunodeficiency Virus (HIV): No (Negative 2 months ago ) Hx Hepatitis C: Yes (untreated) Hx Depression: Yes Hx Suicide Attempt: No Hx Bipolar Disorder: Yes Hx Schizophrenia: No Other Medical History: no suicidal or homicidal ideations - Patient Surgical History Past Surgical History: Yes Hx Neurologic Surgery: No Hx Cataract Extraction: No Hx Cardiac Surgery: No Hx Lung Surgery: No Hx Breast Surgery: No Hx Breast Biopsy: No Hx Abdominal Surgery: Yes (Gastric bypass 2005) Hx Appendectomy: No Hx Cholecystectomy: Yes Hx Genitourinary Surgery: No Hx Section: Yes (2007) Hx Orthopedic Surgery: No Hx Hysterectomy: No Other Surgical History: multiple abd surgeries Anesthesia Reaction: No - PPD History Previous Implant?: Yes Documented Results: Negative w/o proof Implanted On Prior R Admission?: Yes Date: 12/27/18 Results: 0mm PPD to be Administered?: No - Reproductive History Last Menstrual Period: 04/16/18 (irregular) Patient : No - Smoking Cessation Smoking history: Current every day smoker Have you smoked in the past 12 months: Yes Aproximately how many cigarettes per day: 20 Cigars Per Day: 0 Hx Chewing Tobacco Use: No Initiated information on smoking cessation: Yes 'Breaking Loose' booklet given: 04/30/19 - Substances abused Alcohol Substance route: Oral Frequency: Daily Amount used: OZ VODKA AND LIQUOR Age of first use: 17 Date of last use: 04/30/19 Heroin Substance route: Injection Frequency: Daily Amount used: 3 BAGS Age of first use: 31 Date of last use: 04/30/19 Cocaine Substance route: Injection Frequency: Daily Amount used: $20-$30 Age of first use: 22 Date of last use: 04/28/19 Family Disease History - Family Disease History Family Disease History: Other: Father (alive and well ), Mother (alive and well) , Sister (NO SISTER) Admission Physical Exam [facility] - Vital Signs Vital Signs: Vital Signs - 24 hr 04/30/19 18:42 Temperature 97.7 F Pulse Rate 90 Respiratory 18 Rate Blood Pressure 123/88 - Physical General Appearance: Yes: Mild Distress HEENTM: Yes: EOMI, Normocephalic Respiratory: Yes: Lungs Clear, Normal Breath Sounds, No Accessory Muscle Use Neck: Yes: Supple Cardiology: Yes: Regular Rhythm, Regular Rate, S1, S2 Abdominal: Yes: Normal Bowel Sounds, Non Tender, Soft. No: Guarding, Rebound Extremities: Yes: Normal Capillary Refill. No: Tremors, Swelling Neurological: Yes: Fully Oriented, Alert, Motor Strength 5/5 Integumentary: Yes: Track Valentino (right arm. no swelling, erythema, abscesses) - Diagnostic (1) Alcohol use disorder Current Visit: Yes Status: Acute (2) Cocaine use disorder Current Visit: Yes Status: Acute (3) Opioid use disorder Current Visit: Yes Status: Acute (4) Nicotine use disorder Current Visit: Yes Status: Acute (5) Xanax use disorder, mild, abuse Current Visit: Yes Status: Acute Cleared for Admission [facility] - Detox or Rehab [facility] Level of Care: Medically Managed Detox Regimen/Protocol: Valium Breathalyzer - Breathalyzer Breathalyzer: 0.082 Urine Drug Screen - Test Device Lot number: [id number] Expiration date: 02/06/21 - Control Is test valid?: Yes - Results Drug screen NEGATIVE: No Urine drug screen results: SWETHA-Cocaine, MOP-Opiates, OXY-Oxycodone, MTD- Methadone, BZO-Benzodiazepines, BUP-Suboxone Inpatient Rehab Admission - Rehab Decision to Admit Inpatient rehab admission?: No
--- NOTE | 2019-04-30 20:20 | PN ---
Teaching Attending Note Name of Resident: Ayah Mcmillan ATTENDING PHYSICIAN STATEMENT I saw and evaluated the patient. I reviewed the resident's note and discussed the case with the resident. I agree with the resident's findings and plan as documented. SUBJECTIVE: 39 yo on suboxone, also using alcohol, and occ uses heroin on days she does not use suboxone. IV heroin and cocaine use. Recent antibiotic use for cellulitis. Uses xanax 4-6 mg/day occ. OBJECTIVE: Vital Signs - 24 hr 04/30/19 18:42 Temperature 97.7 F Pulse Rate 90 Respiratory 18 Rate Blood Pressure 123/[address] mcginnis abscess healing alert and oriented ASSESSMENT AND PLAN: alcohol treatment with valium per pt request and treatment of opioid use disorder with suboxone- pt is on this
[2019-04-30] MEDS ORDERED: ACETAMINOPHEN 325 MG TABLET (FP) PO PRN ×2 (20:34)
[2019-04-30] MEDS ORDERED: METHOCARBAMOL 500 MG TABLET PO PRN (20:34)
[2019-04-30] MEDS ORDERED: MAGNESIUM CITRATE 300 ML BOTTLE PO PRN (20:34)
[2019-04-30] MEDS ORDERED: MENTHOL/PHENOL 1 EACH UD MM PRN (20:34)
[2019-04-30] MEDS ORDERED: MAG HYDROX/AL HYDROX/SIMETH 30 ML UNIT-DOSE CUP PO PRN (20:34)
[2019-04-30] MEDS ORDERED: MAGNESIUM HYDROX 2400MG/30ML ORAL SUSPENSION 30 ML CUP PO PRN (20:34)
[2019-04-30] MEDS: GABAPENTIN 300 MG CAPSULE (FP) PO SCH (21:30)
[2019-04-30] MEDS: diazePAM 5 MG TABLET PO SCH (21:31)
[2019-04-30] MEDS: THIAMINE HCL 100 MG TABLET (FP) PO SCH (21:31)
--- NOTE | 2019-04-30 21:31 | PN ---
"[facility] Progress Note Note: car restorer noted that patient is on suboxone 8/2mg tid (24mg/d) as per client she only take 2 films a day and would like to continue on 16 mg daily (spilt dose). order amended. Search Terms: parisa dunn, 1980 Search Date: 04/30/2019 09:24:40 PM The Drug Utilization Report below displays all of the controlled substance prescriptions, if any, that your patient has filled in the last twelve months. The information displayed on this report is compiled from pharmacy submissions to the Department, and accurately reflects the information as submitted by the pharmacies. This report was requested by: Woody Xiao | Reference #: [id number] You have not added a JOSEY number. Keeping your JOSEY number(s) up to date on the My JOSEY Numbers page will enable the separation of your prescriptions from others ' in the search results. Others' Prescriptions Patient Name: Parisa Dunn Date: 1980 Address: [address] [place] [address] Sex: Female Rx Written Rx Dispensed Drug Quantity Days Supply Prescriber Name 04/20/2019 04/20/2019 buprenorphine-naloxone 8-2 mg sl film 21 7 Xochitl Gonzalez 04/05/2019 04/05/2019 suboxone 8 mg-2 mg sl film 42 14 Rozina Bal 03/19/2019 03/19/2019 suboxone 8 mg-2 mg sl film 27 9 Xochitl Gonzalez 03/08/2019 03/10/2019 suboxone 8 mg-2 mg sl film 21 7 [place] 02/15/2019 02/19/2019 suboxone 8 mg-2 mg sl film 30 10 Xochitl Gonzalez 02/06/2019 02/06/2019 buprenorphine-naloxone 8-2 mg sl film 30 15 Bharati Valerio MD)"
[2019-04-30] MEDS: NICOTINE POLACRILEX 2 MG GUM BUC PRN (22:12)
[2019-04-30] MEDS: IBUPROFEN 400 MG TABLET (FP) PO PRN (23:03)
[2019-04-30] MEDS: diazePAM 5 MG TABLET PO PRN (23:52)
[2019-05-01] MEDS: BISMUTH SUBSALICYLATE 524 MG/30 ML UD PO PRN ×2 (02:15→21:08)
[2019-05-01] MEDS: NICOTINE POLACRILEX 2 MG GUM BUC PRN ×5 (03:30→22:16)
[2019-05-01] MEDS: diazePAM 5 MG TABLET PO PRN ×4 (03:30→19:45)
[2019-05-01] MEDS: diazePAM 5 MG TABLET PO SCH ×3 (05:49→22:14)
[2019-05-01] MEDS: GABAPENTIN 300 MG CAPSULE (FP) PO SCH ×3 (05:49→22:14)
[2019-05-01] MEDS ORDERED: BUPRENORPHINE/NALOXONE 8 MG/2 MG FILM PACKET SL SCH ×3 (10:00→18:00)
[2019-05-01] MEDS: PRENATAL VITAMINS W/ FOLIC ACID TABLET (FP) PO SCH (10:19)
--- NOTE | 2019-05-01 11:20 | PN ---
S CIWA - CIWA Score Nausea/Vomitin-No Nausea/No Vomiting Muscle Tremors: 3 Anxiety: 3 Agitation: 3 Paroxysmal Sweats: 3 Orientation: 0-Oriented Tacttile Disturbances: 0-None Auditory Disturbances: 0-None Visual Disturbances: 0-None Headache: 0-None Present CIWA-Ar Total Score: 12 [facility] Progress Note (SOAP) Subjective: anxiety sweats interrupted sleep Objective: 05/01/19 11:20 Vital Signs Temperature 98.0 F 05/01/19 09:59 Pulse Rate 83 05/01/19 09:59 Respiratory Rate 18 05/01/19 09:59 Blood Pressure 131/101 H 05/01/19 09:59 O2 Sat by Pulse Oximetry (%) Laboratory Tests 04/30/19 18:52 POC Urine HCG, Qual Negative rest of labs pending aaox3 ambulating no acute distress Assessment: 05/01/19 11:25 withdrawal sx Plan: continue detox increase fluids
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
[2019-05-01 12:13] LABS: HEMATOCRIT 31.6 % (32.4-45.2); HEMOGLOBIN 10.1 GM/dL (10.7-15.3); MCH 25.1 pg (25.7-33.7); MCHC 31.8 g/dl (32.0-36.0); MEAN CELL VOLUME 78.9 fl (80-96); MEAN PLT VOLUME 8.3 fl (7.5-11.1); PLATELET COUNT 217 K/MM3 (134-434); RBC 4.01 M/mm3 (3.60-5.2); RDW 20.4 % (11.6-15.6)
[2019-05-01 12:17] LABS: ALBUMIN 2.8 g/dl (3.4-5.0); BILIRUBIN,TOTAL 0.3 mg/dL (0.2-1); BLOOD UREA NITROGEN 8.9 mg/dL (7-18); CALCIUM 8.4 mg/dL (8.5-10.1); CREATININE 0.7 mg/dL (0.55-1.3); POTASSIUM 4.1 mmol/L (3.5-5.1); TOT PROT 6.4 g/dl (6.4-8.2)
[2019-05-01] MEDS: IBUPROFEN 400 MG TABLET (FP) PO PRN (19:45)
[2019-05-01] MEDS: MELATONIN 5 MG TABLETS PO PRN (22:14)
[2019-05-01] MEDS: THIAMINE HCL 100 MG TABLET (FP) PO SCH (22:14)
[2019-05-01] MEDS: hydrOXYzine HCL 25 MG TABLET (FP) PO PRN (22:14)
[2019-05-02] MEDS: diazePAM 5 MG TABLET PO PRN ×4 (01:12→19:25)
[2019-05-02] MEDS: NICOTINE POLACRILEX 2 MG GUM BUC PRN ×5 (01:13→22:14)
[2019-05-02] MEDS: IBUPROFEN 400 MG TABLET (FP) PO PRN ×2 (04:40→22:14)
[2019-05-02] MEDS: GABAPENTIN 300 MG CAPSULE (FP) PO SCH ×3 (06:01→22:12)
[2019-05-02] MEDS: diazePAM 5 MG TABLET PO SCH ×2 (06:01→17:21)
[2019-05-02] MEDS: BUPRENORPHINE/NALOXONE 8 MG/2 MG FILM PACKET SL SCH ×2 (06:16→17:22)
[2019-05-02] MEDS ORDERED: BUPRENORPHINE/NALOXONE 8 MG/2 MG FILM PACKET SL SCH (10:00)
[2019-05-02] MEDS: PRENATAL VITAMINS W/ FOLIC ACID TABLET (FP) PO SCH (10:21)
[2019-05-02] MEDS ORDERED: traZODone HCL 50 MG TABLET (FP) PO PRN (10:53)
--- NOTE | 2019-05-02 11:20 | PN ---
S CIWA - CIWA Score Nausea/Vomitin-Mild Nausea/No Vomiting Muscle Tremors: 2 Anxiety: 3 Agitation: 2 Paroxysmal Sweats: No Perspiration Orientation: 0-Oriented Tacttile Disturbances: 0-None Auditory Disturbances: 0-None Visual Disturbances: 0-None Headache: 1-Very Mild CIWA-Ar Total Score: 9 [facility] Progress Note (SOAP) Subjective: Pt here for alcohol detox, on suboxone maintenance, requesting nicotine patch, trazodone for sleep O: Vital Signs - 24 hr 05/01/19 05/01/19 05/01/19 14:05 17:47 21:19 Temperature 97.9 F 97.2 F L 96.9 F L Pulse Rate 80 100 H 79 Respiratory 18 18 16 Rate Blood Pressure 126/93 129/92 137/99 05/02/19 05/02/19 05/02/19 00:30 03:30 06:37 Temperature 97.1 F L Pulse Rate 92 H Respiratory 16 18 17 Rate Blood Pressure 98/69 05/02/19 09:23 Temperature 97.6 F Pulse Rate 92 H Respiratory 18 Rate Blood Pressure 107/75 Laboratory Tests 04/30/19 05/01/19 05/01/19 18:52 07:00 07:00 WBC 4.0 RBC 4.01 Hgb 10.1 L Hct 31.6 L MCV 78.9 L MCH 25.1 L MCHC 31.8 L RDW 20.4 H Plt Count 217 MPV 8.3 Sodium 142 Potassium 4.1 Chloride 106 Carbon Dioxide 31 Anion Gap 5 L BUN 8.9 Creatinine 0.7 Est GFR (CKD-EPI)AfAm 126.49 Est GFR (CKD-EPI)NonAf 109.14 Random Glucose 83 Calcium 8.4 L Total Bilirubin 0.3 AST 62 H ALT 41 Alkaline Phosphatase 171 H Total Protein 6.4 Albumin 2.8 L POC Urine HCG, Qual Negative RPR Titer 05/01/19 07:00 WBC RBC Hgb Hct MCV MCH MCHC RDW Plt Count MPV Sodium Potassium Chloride Carbon Dioxide Anion Gap BUN Creatinine Est GFR (CKD-EPI)AfAm Est GFR (CKD-EPI)NonAf Random Glucose Calcium Total Bilirubin AST ALT Alkaline Phosphatase Total Protein Albumin POC Urine HCG, Qual RPR Titer Nonreactive mildly anxious minimal tremors anemic a/p: continue alcohol detox protocol, on Bupe maintenance, trazodone and nicotine patch ordered per pt request
[2019-05-02] MEDS: NICOTINE 21 MG/24 HOURS TOPICAL PATCH TD SCH (11:24)
[2019-05-02] MEDS ORDERED: cloNIDine HCL 0.1 MG TABLET PO ONE (16:15)
[2019-05-02] MEDS: hydrOXYzine HCL 25 MG TABLET (FP) PO PRN (22:12)
[2019-05-02] MEDS: THIAMINE HCL 100 MG TABLET (FP) PO SCH (22:12)
[2019-05-02] MEDS: MELATONIN 5 MG TABLETS PO PRN (22:12)
[2019-05-03] MEDS: GABAPENTIN 300 MG CAPSULE (FP) PO SCH (05:53)
[2019-05-03] MEDS: BUPRENORPHINE/NALOXONE 8 MG/2 MG FILM PACKET SL SCH (05:54)
[2019-05-03] MEDS ORDERED: diazePAM 5 MG TABLET PO ONE (06:00)
[2019-05-03] MEDS: NICOTINE POLACRILEX 2 MG GUM BUC PRN ×2 (06:03→09:47)
[2019-05-03] MEDS: diazePAM 5 MG TABLET PO PRN (07:50)
[2019-05-03] MEDS: NICOTINE 21 MG/24 HOURS TOPICAL PATCH TD SCH (09:44)
[2019-05-03] MEDS: PRENATAL VITAMINS W/ FOLIC ACID TABLET (FP) PO SCH (09:45)
[2019-05-03] MEDS: hydrOXYzine HCL 25 MG TABLET (FP) PO PRN (09:47)
[2019-05-03 09:53] VITALS: BP 106/71; PULSE 83; TEMP 97.6
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
== END 2019-05-03 10:30 | disposition home or self-care (01) | DRG 773 ==
LOC: YASAS 14:59 → Y3N 20:25 → Y6N 20:37 → Y3N 05-01 12:38
PROVIDERS: ADMIT Surgery; ATTEND Surgery
PROC: HZ2ZZZZ Detoxification Services for Substance Abuse Treatment (ICD-10-PCS; principal; 2019-04-30)
DX: F10.230 Alcohol dependence with withdrawal, uncomplicated (principal); F11.20 Opioid dependence, uncomplicated; F13.230 Sedative, hypnotic or anxiolytic dependence with withdrawal, uncomplicated; F14.20 Cocaine dependence, uncomplicated; F17.210 Nicotine dependence, cigarettes, uncomplicated; F19.24 Other psychoactive substance dependence with psychoactive substance-induced mood disorder; F41.9 Anxiety disorder, unspecified; K21.9 Gastro-esophageal reflux disease without esophagitis; B18.2 Chronic viral hepatitis C; D64.9 Anemia, unspecified; Z98.84 Bariatric surgery status
CPT/HCPCS: 36415; 80053; 81025; 85027; 86593; J0735

== ENCOUNTER 2021-01-31 08:27 | Inpatient (IN) | payer OTHER ==
[2021-01-31] MEDS ORDERED: MAGNESIUM HYDROX 2400MG/30ML ORAL SUSPENSION 30 ML CUP PO PRN (11:03)
[2021-01-31] MEDS ORDERED: IBUPROFEN 400 MG TABLET (FP) PO PRN (11:03)
[2021-01-31] MEDS ORDERED: ACETAMINOPHEN 325 MG TABLET (FP) PO PRN ×2 (11:03)
[2021-01-31] MEDS ORDERED: MENTHOL/PHENOL 1 EACH UD MM PRN (11:03)
[2021-01-31] MEDS ORDERED: ONDANSETRON *ODT* 4 MG TABLET SL PRN (11:03)
[2021-01-31] MEDS ORDERED: MAGNESIUM CITRATE 300 ML BOTTLE PO PRN (11:03)
[2021-01-31] MEDS ORDERED: BISMUTH SUBSALICYLATE 524 MG/30 ML UD PO PRN (11:03)
[2021-01-31 11:08] VITALS: BMI 26.1
[2021-01-31] MEDS: LORazepam 1 MG TABLET PO PRN (13:39)
[2021-01-31] MEDS: NICOTINE POLACRILEX 2 MG GUM BUC PRN ×2 (13:39→19:02)
[2021-01-31] MEDS: NICOTINE 21 MG/24 HOURS TOPICAL PATCH TD SCH (13:39)
[2021-01-31] MEDS: hydrOXYzine PAMOATE 25 MG CAPSULE (FP) PO SCH ×3 (15:06→22:03)
[2021-01-31] MEDS: LORazepam 2 MG TABLET PO SCH ×2 (17:47→22:04)
[2021-01-31] MEDS: MELATONIN 5 MG TABLETS PO SCH (22:03)
[2021-01-31] MEDS: THIAMINE HCL 100 MG TABLET (FP) PO SCH (22:03)
[2021-02-01] MEDS: LORazepam 2 MG TABLET PO SCH ×4 (05:11→22:19)
[2021-02-01] MEDS: hydrOXYzine PAMOATE 25 MG CAPSULE (FP) PO SCH ×5 (05:13→22:19)
[2021-02-01] MEDS ORDERED: METHADONE HCL 10 MG TABLET PO ONE (06:00)
[2021-02-01] MEDS: METHOCARBAMOL 500 MG TABLET PO PRN ×2 (07:04→13:04)
[2021-02-01] MEDS: NICOTINE POLACRILEX 2 MG GUM BUC PRN ×2 (07:42→14:15)
[2021-02-01] MEDS: PRENATAL VITAMINS W/ FOLIC ACID TABLET (FP) PO SCH (10:28)
[2021-02-01] MEDS: NICOTINE 21 MG/24 HOURS TOPICAL PATCH TD SCH (10:28)
[2021-02-01] MEDS: ESCITALOPRAM OXALATE 10 MG TABLET PO SCH (10:30)
[2021-02-01 10:41] LABS: HEMATOCRIT 30.9 % (32.4-45.2); HEMOGLOBIN 10.1 GM/dL (10.7-15.3); MCH 27.4 pg (25.7-33.7); MCHC 32.7 g/dl (32.0-36.0); MEAN CELL VOLUME 83.8 fl (80-96); MEAN PLT VOLUME 8.6 fl (7.5-11.1); PLATELET COUNT 85 K/MM3 (134-434); RBC 3.69 M/mm3 (3.60-5.2); RDW 20.6 % (11.6-15.6); WHITE BLOOD COUNT 5.7 K/mm3 (4.0-10.0)
[2021-02-01 10:59] LABS: ALBUMIN 2.3 g/dl (3.4-5.0); CALCIUM 7.9 mg/dL (8.5-10.1)
[2021-02-01 11:00] LABS: BLOOD UREA NITROGEN 9.2 mg/dL (7-18)
[2021-02-01 11:01] LABS: CREATININE 0.9 mg/dL (0.55-1.3)
[2021-02-01 11:03] LABS: BILIRUBIN,TOTAL 0.5 mg/dL (0.2-1); TOT PROT 5.3 g/dl (6.4-8.2)
[2021-02-01] MEDS: MAG HYDROX/AL HYDROX/SIMETH 30 ML UNIT-DOSE CUP PO PRN (16:27)
[2021-02-01] MEDS: THIAMINE HCL 100 MG TABLET (FP) PO SCH (22:18)
[2021-02-01] MEDS: MELATONIN 5 MG TABLETS PO SCH (22:18)
[2021-02-01] MEDS: QUEtiapine FUMARATE 50 MG TABLET PO SCH (22:18)
[2021-02-01] MEDS: VITAMINS A AND D TOPICAL OINTMENT 60 GM TUBE TP SCH (22:19)
[2021-02-02] MEDS: LORazepam 1 MG TABLET PO PRN (02:44)
[2021-02-02] MEDS: hydrOXYzine PAMOATE 25 MG CAPSULE (FP) PO SCH ×5 (06:08→22:40)
[2021-02-02] MEDS: LORazepam 1 MG TABLET PO SCH ×4 (06:08→22:41)
[2021-02-02] MEDS: NICOTINE POLACRILEX 2 MG GUM BUC PRN ×3 (07:18→12:46)
[2021-02-02] MEDS ORDERED: METHADONE HCL 10 MG TABLET PO SCH (08:00)
[2021-02-02] MEDS ORDERED: METHADONE HCL 10 MG TABLET ONE (08:30)
[2021-02-02] MEDS ORDERED: METHADONE HCL 40 MG DISPERSABLE TABLET ONE (08:30)
[2021-02-02] MEDS: METHADONE 160 MG, METHADONE 20 MG PO SCH (08:45)
[2021-02-02] MEDS: NICOTINE 21 MG/24 HOURS TOPICAL PATCH TD SCH (10:16)
[2021-02-02] MEDS: ESCITALOPRAM OXALATE 10 MG TABLET PO SCH (10:16)
[2021-02-02] MEDS: PRENATAL VITAMINS W/ FOLIC ACID TABLET (FP) PO SCH (10:16)
[2021-02-02] MEDS: VITAMINS A AND D TOPICAL OINTMENT 60 GM TUBE TP SCH ×2 (11:33→22:41)
[2021-02-02] MEDS: MAG HYDROX/AL HYDROX/SIMETH 30 ML UNIT-DOSE CUP PO PRN (14:17)
[2021-02-02] MEDS: QUEtiapine FUMARATE 50 MG TABLET PO SCH (22:40)
[2021-02-02] MEDS: THIAMINE HCL 100 MG TABLET (FP) PO SCH (22:40)
[2021-02-02] MEDS: MELATONIN 5 MG TABLETS PO SCH (22:41)
[2021-02-03] MEDS ORDERED: LORazepam 0.5 MG TABLET PO PRN
[2021-02-03] MEDS: NICOTINE POLACRILEX 2 MG GUM BUC PRN ×3 (02:40→07:00)
[2021-02-03] MEDS: METHOCARBAMOL 500 MG TABLET PO PRN ×2 (03:08→15:27)
[2021-02-03] MEDS ORDERED: METHADONE HCL 10 MG TABLET ONE (03:48)
[2021-02-03] MEDS ORDERED: METHADONE HCL 40 MG DISPERSABLE TABLET ONE (03:49)
[2021-02-03] MEDS: LORazepam 0.5 MG TABLET PO SCH ×4 (04:53→22:32)
[2021-02-03] MEDS: METHADONE 160 MG, METHADONE 20 MG PO SCH (06:18)
[2021-02-03] MEDS: hydrOXYzine PAMOATE 25 MG CAPSULE (FP) PO SCH ×5 (06:19→22:32)
[2021-02-03] MEDS: ESCITALOPRAM OXALATE 10 MG TABLET PO SCH (10:29)
[2021-02-03] MEDS: PRENATAL VITAMINS W/ FOLIC ACID TABLET (FP) PO SCH (10:29)
[2021-02-03] MEDS: NICOTINE 21 MG/24 HOURS TOPICAL PATCH TD SCH (10:29)
[2021-02-03] MEDS: VITAMINS A AND D TOPICAL OINTMENT 60 GM TUBE TP SCH ×2 (10:29→22:33)
[2021-02-03] MEDS: QUEtiapine FUMARATE 50 MG TABLET PO SCH (22:32)
[2021-02-03] MEDS: THIAMINE HCL 100 MG TABLET (FP) PO SCH (22:32)
[2021-02-03] MEDS: MELATONIN 5 MG TABLETS PO SCH (22:32)
[2021-02-04] MEDS ORDERED: METHADONE HCL 10 MG TABLET ONE (04:05)
[2021-02-04] MEDS ORDERED: METHADONE HCL 40 MG DISPERSABLE TABLET ONE (04:06)
[2021-02-04] MEDS ORDERED: LORazepam 0.5 MG TABLET PO ONE (05:00)
[2021-02-04] MEDS: hydrOXYzine PAMOATE 25 MG CAPSULE (FP) PO SCH ×2 (05:08→10:18)
[2021-02-04] MEDS: METHADONE 160 MG, METHADONE 20 MG PO SCH (05:08)
[2021-02-04] MEDS: NICOTINE POLACRILEX 2 MG GUM BUC PRN (05:15)
[2021-02-04 07:07] LABS: SARS-CoV-2 NAA Not Detected (Not Detected)
[2021-02-04] MEDS: METHOCARBAMOL 500 MG TABLET PO PRN (07:48)
[2021-02-04] MEDS: PRENATAL VITAMINS W/ FOLIC ACID TABLET (FP) PO SCH (10:18)
[2021-02-04] MEDS: NICOTINE 21 MG/24 HOURS TOPICAL PATCH TD SCH (10:19)
[2021-02-04] MEDS: VITAMINS A AND D TOPICAL OINTMENT 60 GM TUBE TP SCH (10:19)
[2021-02-04] MEDS: ESCITALOPRAM OXALATE 10 MG TABLET PO SCH (10:20)
[2021-02-04 14:22] VITALS: BP 131/99; PULSE 106; TEMP 98.1
== END 2021-02-04 13:35 | disposition other institution (70) | DRG 773 ==
LOC: YASAS 08:27 → Y6N 12:42
PROVIDERS: ADMIT Allergy & Immunology; ATTEND Allergy & Immunology
PROC: HZ2ZZZZ Detoxification Services for Substance Abuse Treatment (ICD-10-PCS; principal; 2021-01-31)
DX: F10.230 Alcohol dependence with withdrawal, uncomplicated (principal); F13.230 Sedative, hypnotic or anxiolytic dependence with withdrawal, uncomplicated; F11.20 Opioid dependence, uncomplicated; F17.213 Nicotine dependence, cigarettes, with withdrawal; F19.24 Other psychoactive substance dependence with psychoactive substance-induced mood disorder; K21.9 Gastro-esophageal reflux disease without esophagitis; B18.2 Chronic viral hepatitis C; Z62.810 Personal history of physical and sexual abuse in childhood; Z98.84 Bariatric surgery status; Z98.82 Breast implant status; Z90.49 Acquired absence of other specified parts of digestive tract
CPT/HCPCS: 36415; 80053; 81025; 85027; 86780; 93005; 93010; C9803; Q0162; U0003; U0005

== ENCOUNTER 2021-02-04 13:55 | Inpatient (IN) | payer OTHER ==
[2021-02-04] MEDS ORDERED: TRIMETHOBENZAMIDE HCL 200MG/2ML INJ IM ONE (14:09)
[2021-02-04] MEDS ORDERED: ONDANSETRON *ODT* 4 MG TABLET SL PRN (14:10)
[2021-02-04] MEDS ORDERED: MENTHOL/PHENOL 1 EACH UD MM PRN (14:11)
[2021-02-04] MEDS ORDERED: MAGNESIUM CITRATE 300 ML BOTTLE PO PRN (14:11)
[2021-02-04] MEDS ORDERED: LOPERAMIDE HCL 2 MG CAPSULE PO PRN (14:11)
[2021-02-04] MEDS ORDERED: MAGNESIUM HYDROX 2400MG/30ML ORAL SUSPENSION 30 ML CUP PO PRN (14:11)
[2021-02-04] MEDS ORDERED: guaiFENesin 200 MG/10 ML 10 ML UNIT-DOSE CUPS PO PRN (14:11)
[2021-02-04] MEDS ORDERED: P-EPHED 60MG/TRIPROLIDI 2.5MG TABLET PO PRN (14:11)
[2021-02-04] MEDS ORDERED: ACETAMINOPHEN 325 MG TABLET (FP) PO PRN (14:11)
[2021-02-04] MEDS: NICOTINE POLACRILEX 2 MG GUM BUC PRN ×2 (18:06→21:40)
[2021-02-04] MEDS: hydrOXYzine PAMOATE 25 MG CAPSULE (FP) PO PRN (18:06)
[2021-02-04] MEDS: MELATONIN 5 MG TABLETS PO SCH (21:38)
[2021-02-04] MEDS: THIAMINE HCL 100 MG TABLET (FP) PO SCH (21:39)
[2021-02-04] MEDS: QUEtiapine FUMARATE 50 MG TABLET PO SCH (21:39)
[2021-02-05] MEDS ORDERED: methaDONE HCL 10 MG TABLET ONE (05:14)
[2021-02-05] MEDS ORDERED: methaDONE HCL 40 MG DISPERSABLE TABLET ONE (05:14)
[2021-02-05] MEDS ORDERED: methaDONE HCL 10 MG TABLET PO SCH (06:00)
[2021-02-05] MEDS: hydrOXYzine PAMOATE 25 MG CAPSULE (FP) PO PRN ×4 (06:03→22:06)
[2021-02-05] MEDS: NICOTINE POLACRILEX 2 MG GUM BUC PRN ×2 (06:03→10:08)
[2021-02-05] MEDS: PRENATAL VITAMINS W/ FOLIC ACID TABLET (FP) PO SCH (10:06)
[2021-02-05] MEDS: ESCITALOPRAM OXALATE 10 MG TABLET PO SCH (10:06)
[2021-02-05] MEDS: NICOTINE 7 MG/24 HOURS TOPICAL PATCH TD SCH (10:07)
[2021-02-05 12:32] LABS: HIV INTERPRETATION NEGATIVE (NEGATIVE)
[2021-02-05] MEDS: NICOTINE POLACRILEX 4 MG GUM BUC PRN ×2 (17:36→20:14)
[2021-02-05] MEDS: TRIMETHOBENZAMIDE HCL 300 MG CAPSULE PO PRN (20:12)
[2021-02-05] MEDS ORDERED: PT OWN MED DRAWER 7, Y5N ONE (20:12)
[2021-02-05] MEDS: METHOCARBAMOL 500 MG TABLET PO PRN (20:12)
[2021-02-05] MEDS: QUEtiapine FUMARATE 50 MG TABLET PO SCH (21:31)
[2021-02-05] MEDS: THIAMINE HCL 100 MG TABLET (FP) PO SCH (21:31)
[2021-02-05] MEDS: MELATONIN 5 MG TABLETS PO SCH (22:06)
[2021-02-06] MEDS ORDERED: methaDONE HCL 10 MG TABLET ONE (03:25)
[2021-02-06] MEDS ORDERED: methaDONE HCL 40 MG DISPERSABLE TABLET ONE (03:26)
[2021-02-06] MEDS: METHOCARBAMOL 500 MG TABLET PO PRN (05:56)
[2021-02-06] MEDS: hydrOXYzine PAMOATE 25 MG CAPSULE (FP) PO PRN ×2 (05:56→10:03)
[2021-02-06] MEDS: NICOTINE POLACRILEX 4 MG GUM BUC PRN ×6 (06:14→21:20)
[2021-02-06] MEDS: TRIMETHOBENZAMIDE HCL 300 MG CAPSULE PO PRN (09:21)
[2021-02-06] MEDS: ESCITALOPRAM OXALATE 10 MG TABLET PO SCH (10:02)
[2021-02-06] MEDS: PRENATAL VITAMINS W/ FOLIC ACID TABLET (FP) PO SCH (10:02)
[2021-02-06] MEDS: NICOTINE 7 MG/24 HOURS TOPICAL PATCH TD SCH (10:02)
[2021-02-06] MEDS: MAG HYDROX/AL HYDROX/SIMETH 30 ML UNIT-DOSE CUP PO PRN (18:46)
[2021-02-06] MEDS: THIAMINE HCL 100 MG TABLET (FP) PO SCH (21:19)
[2021-02-06] MEDS: QUEtiapine FUMARATE 50 MG TABLET PO SCH (21:19)
[2021-02-06] MEDS: MELATONIN 5 MG TABLETS PO SCH (21:20)
[2021-02-06] MEDS ORDERED: ONDANSETRON *ODT* 4 MG TABLET SL PRN (22:53)
[2021-02-06] MEDS ORDERED: TRIMETHOBENZAMIDE HCL 200MG/2ML INJ IM PRN (22:56)
[2021-02-07] MEDS: PANTOPRAZOLE 20 MG TABLET PO SCH ×2 (00:13→10:12)
[2021-02-07] MEDS: MAG HYDROX/AL HYDROX/SIMETH 30 ML UNIT-DOSE CUP PO PRN (04:44)
[2021-02-07] MEDS: NICOTINE POLACRILEX 4 MG GUM BUC PRN ×4 (04:45→15:59)
[2021-02-07] MEDS ORDERED: methaDONE HCL 10 MG TABLET ONE (05:25)
[2021-02-07] MEDS ORDERED: methaDONE HCL 40 MG DISPERSABLE TABLET ONE (05:26)
[2021-02-07] MEDS: hydrOXYzine PAMOATE 25 MG CAPSULE (FP) PO PRN ×4 (05:52→21:30)
[2021-02-07] MEDS: ESCITALOPRAM OXALATE 10 MG TABLET PO SCH ×2 (10:10→10:25)
[2021-02-07] MEDS: PRENATAL VITAMINS W/ FOLIC ACID TABLET (FP) PO SCH (10:11)
[2021-02-07] MEDS: NICOTINE 7 MG/24 HOURS TOPICAL PATCH TD SCH (10:11)
[2021-02-07] MEDS: QUEtiapine FUMARATE 50 MG TABLET PO SCH (21:28)
[2021-02-07] MEDS: MELATONIN 5 MG TABLETS PO SCH (21:30)
[2021-02-07] MEDS: METHOCARBAMOL 500 MG TABLET PO PRN (21:30)
[2021-02-07] MEDS: THIAMINE HCL 100 MG TABLET (FP) PO SCH (21:30)
[2021-02-07] MEDS ORDERED: TRIMETHOBENZAMIDE HCL 300 MG CAPSULE PO PRN (22:07)
[2021-02-08] MEDS ORDERED: methaDONE HCL 10 MG TABLET ONE (06:01)
[2021-02-08] MEDS ORDERED: methaDONE HCL 40 MG DISPERSABLE TABLET ONE (06:01)
[2021-02-08] MEDS: hydrOXYzine PAMOATE 25 MG CAPSULE (FP) PO PRN ×3 (06:04→21:18)
[2021-02-08 08:05] LABS: SARS-CoV-2 NAA Not Detected (Not Detected)
[2021-02-08] MEDS: PRENATAL VITAMINS W/ FOLIC ACID TABLET (FP) PO SCH (10:30)
[2021-02-08] MEDS: ESCITALOPRAM OXALATE 10 MG TABLET PO SCH (10:30)
[2021-02-08] MEDS: NICOTINE 7 MG/24 HOURS TOPICAL PATCH TD SCH ×2 (10:30→11:26)
[2021-02-08] MEDS: NICOTINE POLACRILEX 4 MG GUM BUC PRN ×5 (10:31→21:19)
[2021-02-08] MEDS: PANTOPRAZOLE 20 MG TABLET PO SCH (10:31)
[2021-02-08] MEDS: IBUPROFEN 400 MG TABLET (FP) PO PRN (16:58)
[2021-02-08] MEDS: MELATONIN 5 MG TABLETS PO SCH (21:18)
[2021-02-08] MEDS: QUEtiapine FUMARATE 50 MG TABLET PO SCH (21:18)
[2021-02-08] MEDS: THIAMINE HCL 100 MG TABLET (FP) PO SCH (21:18)
[2021-02-08] MEDS ORDERED: LORazepam 2 MG/ML SDV VIAL ONE (21:42)
[2021-02-08] MEDS ORDERED: LORazepam 2 MG/ML SDV VIAL IM ONE (21:45)
[2021-02-09] MEDS ORDERED: methaDONE HCL 10 MG TABLET ONE (08:04)
[2021-02-09] MEDS ORDERED: methaDONE HCL 40 MG DISPERSABLE TABLET ONE (08:04)
[2021-02-09] MEDS: hydrOXYzine PAMOATE 25 MG CAPSULE (FP) PO PRN ×2 (08:05→21:39)
[2021-02-09] MEDS: NICOTINE POLACRILEX 4 MG GUM BUC PRN ×3 (08:06→20:55)
[2021-02-09] MEDS: ESCITALOPRAM OXALATE 10 MG TABLET PO SCH (09:41)
[2021-02-09] MEDS: PRENATAL VITAMINS W/ FOLIC ACID TABLET (FP) PO SCH (09:41)
[2021-02-09] MEDS: NICOTINE 7 MG/24 HOURS TOPICAL PATCH TD SCH (09:41)
[2021-02-09] MEDS: PANTOPRAZOLE 20 MG TABLET PO SCH (09:42)
[2021-02-09] MEDS: THIAMINE HCL 100 MG TABLET (FP) PO SCH (21:39)
[2021-02-09] MEDS: MELATONIN 5 MG TABLETS PO SCH (21:39)
[2021-02-09] MEDS: QUEtiapine FUMARATE 50 MG TABLET PO SCH (21:39)
[2021-02-10] MEDS ORDERED: methaDONE HCL 10 MG TABLET ONE (03:34)
[2021-02-10] MEDS ORDERED: methaDONE HCL 40 MG DISPERSABLE TABLET ONE (03:35)
[2021-02-10] MEDS: METHOCARBAMOL 500 MG TABLET PO PRN (06:05)
[2021-02-10] MEDS: hydrOXYzine PAMOATE 25 MG CAPSULE (FP) PO PRN (06:06)
[2021-02-10] MEDS: NICOTINE POLACRILEX 4 MG GUM BUC PRN ×5 (06:08→21:26)
[2021-02-10] MEDS ORDERED: PT OWN MED DRAWER 7, Y5N ONE (08:19)
[2021-02-10] MEDS: NICOTINE 7 MG/24 HOURS TOPICAL PATCH TD SCH (09:52)
[2021-02-10] MEDS: PRENATAL VITAMINS W/ FOLIC ACID TABLET (FP) PO SCH (09:52)
[2021-02-10] MEDS: ESCITALOPRAM OXALATE 10 MG TABLET PO SCH (09:53)
[2021-02-10] MEDS: PANTOPRAZOLE 20 MG TABLET PO SCH (09:53)
[2021-02-10] MEDS: hydrOXYzine PAMOATE 50 MG CAPSULE (FP) PO PRN (09:53)
[2021-02-10] MEDS: cloNIDine HCL 0.1 MG TABLET PO PRN ×2 (09:54→21:25)
[2021-02-10] MEDS: QUEtiapine FUMARATE 50 MG TABLET PO SCH (21:24)
[2021-02-10] MEDS: MELATONIN 5 MG TABLETS PO SCH (21:24)
[2021-02-10] MEDS: THIAMINE HCL 100 MG TABLET (FP) PO SCH (21:24)
[2021-02-11] MEDS ORDERED: methaDONE HCL 40 MG DISPERSABLE TABLET ONE (05:45)
[2021-02-11] MEDS ORDERED: methaDONE HCL 10 MG TABLET ONE (05:45)
[2021-02-11] MEDS: NICOTINE POLACRILEX 4 MG GUM BUC PRN ×5 (06:07→21:31)
[2021-02-11] MEDS: hydrOXYzine PAMOATE 50 MG CAPSULE (FP) PO PRN ×2 (06:07→21:30)
[2021-02-11] MEDS: ESCITALOPRAM OXALATE 10 MG TABLET PO SCH (10:00)
[2021-02-11] MEDS: PRENATAL VITAMINS W/ FOLIC ACID TABLET (FP) PO SCH (10:00)
[2021-02-11] MEDS: PANTOPRAZOLE 20 MG TABLET PO SCH (10:00)
[2021-02-11] MEDS: NICOTINE 7 MG/24 HOURS TOPICAL PATCH TD SCH (10:00)
[2021-02-11] MEDS: METHOCARBAMOL 500 MG TABLET PO PRN ×2 (10:07→21:30)
[2021-02-11] MEDS: cloNIDine HCL 0.1 MG TABLET PO PRN ×2 (10:35→21:33)
[2021-02-11] MEDS: MELATONIN 5 MG TABLETS PO SCH (21:29)
[2021-02-11] MEDS: QUEtiapine FUMARATE 50 MG TABLET PO SCH (21:30)
[2021-02-11] MEDS: THIAMINE HCL 100 MG TABLET (FP) PO SCH (21:30)
[2021-02-12] MEDS ORDERED: methaDONE HCL 10 MG TABLET ONE (06:05)
[2021-02-12] MEDS ORDERED: methaDONE HCL 40 MG DISPERSABLE TABLET ONE (06:05)
[2021-02-12] MEDS: hydrOXYzine PAMOATE 50 MG CAPSULE (FP) PO PRN ×2 (06:08→21:39)
[2021-02-12] MEDS: NICOTINE POLACRILEX 4 MG GUM BUC PRN ×4 (06:08→20:27)
[2021-02-12] MEDS: IBUPROFEN 400 MG TABLET (FP) PO PRN (06:22)
[2021-02-12] MEDS: ESCITALOPRAM OXALATE 10 MG TABLET PO SCH (10:07)
[2021-02-12] MEDS: PRENATAL VITAMINS W/ FOLIC ACID TABLET (FP) PO SCH (10:08)
[2021-02-12] MEDS: NICOTINE 7 MG/24 HOURS TOPICAL PATCH TD SCH (10:08)
[2021-02-12] MEDS: PANTOPRAZOLE 20 MG TABLET PO SCH (10:08)
[2021-02-12] MEDS: cloNIDine HCL 0.1 MG TABLET PO PRN (12:30)
[2021-02-12] MEDS: MELATONIN 5 MG TABLETS PO SCH (21:37)
[2021-02-12] MEDS: QUEtiapine FUMARATE 50 MG TABLET PO SCH (21:37)
[2021-02-12] MEDS: THIAMINE HCL 100 MG TABLET (FP) PO SCH (21:39)
[2021-02-12] MEDS: METHOCARBAMOL 500 MG TABLET PO PRN (21:39)
[2021-02-13] MEDS: NICOTINE POLACRILEX 4 MG GUM BUC PRN ×6 (01:09→16:53)
[2021-02-13] MEDS ORDERED: methaDONE HCL 10 MG TABLET ONE (03:27)
[2021-02-13] MEDS ORDERED: methaDONE HCL 40 MG DISPERSABLE TABLET ONE (03:28)
[2021-02-13] MEDS: METHOCARBAMOL 500 MG TABLET PO PRN ×2 (05:57→22:10)
[2021-02-13] MEDS: hydrOXYzine PAMOATE 50 MG CAPSULE (FP) PO PRN ×2 (05:57→22:10)
[2021-02-13] MEDS: cloNIDine HCL 0.1 MG TABLET PO PRN (06:52)
[2021-02-13] MEDS: NICOTINE 7 MG/24 HOURS TOPICAL PATCH TD SCH (11:05)
[2021-02-13] MEDS: PRENATAL VITAMINS W/ FOLIC ACID TABLET (FP) PO SCH (11:05)
[2021-02-13] MEDS: ESCITALOPRAM OXALATE 10 MG TABLET PO SCH (11:05)
[2021-02-13] MEDS: PANTOPRAZOLE 20 MG TABLET PO SCH (11:06)
[2021-02-13] MEDS: QUEtiapine FUMARATE 50 MG TABLET PO SCH (22:09)
[2021-02-13] MEDS: THIAMINE HCL 100 MG TABLET (FP) PO SCH (22:10)
[2021-02-13] MEDS: MELATONIN 5 MG TABLETS PO SCH (22:10)
[2021-02-14] MEDS ORDERED: methaDONE HCL 10 MG TABLET ONE (05:07)
[2021-02-14] MEDS ORDERED: methaDONE HCL 40 MG DISPERSABLE TABLET ONE (05:07)
[2021-02-14] MEDS: hydrOXYzine PAMOATE 50 MG CAPSULE (FP) PO PRN ×2 (06:05→21:49)
[2021-02-14] MEDS ORDERED: cloNIDine HCL 0.1 MG TABLET PO PRN (09:00)
[2021-02-14] MEDS: cloNIDine HCL 0.1 MG TABLET PO PRN (09:13)
[2021-02-14] MEDS: ESCITALOPRAM OXALATE 10 MG TABLET PO SCH (09:13)
[2021-02-14] MEDS: NICOTINE 7 MG/24 HOURS TOPICAL PATCH TD SCH (09:13)
[2021-02-14] MEDS: PANTOPRAZOLE 20 MG TABLET PO SCH (09:13)
[2021-02-14] MEDS: PRENATAL VITAMINS W/ FOLIC ACID TABLET (FP) PO SCH (09:13)
[2021-02-14] MEDS: METHOCARBAMOL 500 MG TABLET PO PRN (09:14)
[2021-02-14] MEDS: NICOTINE POLACRILEX 4 MG GUM BUC PRN ×4 (09:16→21:49)
[2021-02-14] MEDS: QUEtiapine FUMARATE 50 MG TABLET PO SCH (21:47)
[2021-02-14] MEDS: IBUPROFEN 400 MG TABLET (FP) PO PRN (21:47)
[2021-02-14] MEDS: THIAMINE HCL 100 MG TABLET (FP) PO SCH (21:47)
[2021-02-14] MEDS: MELATONIN 5 MG TABLETS PO SCH (21:49)
[2021-02-15] MEDS: NICOTINE POLACRILEX 4 MG GUM BUC PRN ×5 (02:08→15:57)
[2021-02-15] MEDS ORDERED: methaDONE HCL 10 MG TABLET ONE (03:29)
[2021-02-15] MEDS ORDERED: methaDONE HCL 40 MG DISPERSABLE TABLET ONE (03:29)
[2021-02-15] MEDS: hydrOXYzine PAMOATE 50 MG CAPSULE (FP) PO PRN ×2 (05:51→21:20)
[2021-02-15] MEDS: METHOCARBAMOL 500 MG TABLET PO PRN (05:51)
[2021-02-15] MEDS: ESCITALOPRAM OXALATE 10 MG TABLET PO SCH (09:10)
[2021-02-15] MEDS: PRENATAL VITAMINS W/ FOLIC ACID TABLET (FP) PO SCH (09:10)
[2021-02-15] MEDS: cloNIDine HCL 0.1 MG TABLET PO PRN (09:10)
[2021-02-15] MEDS: PANTOPRAZOLE 20 MG TABLET PO SCH (09:10)
[2021-02-15] MEDS: NICOTINE 7 MG/24 HOURS TOPICAL PATCH TD SCH (09:10)
[2021-02-15] MEDS: IBUPROFEN 400 MG TABLET (FP) PO PRN (15:57)
[2021-02-15] MEDS: QUEtiapine FUMARATE 50 MG TABLET PO SCH (21:19)
[2021-02-15] MEDS: THIAMINE HCL 100 MG TABLET (FP) PO SCH (21:19)
[2021-02-15] MEDS: MELATONIN 5 MG TABLETS PO SCH (21:19)
[2021-02-16] MEDS: NICOTINE POLACRILEX 4 MG GUM BUC PRN ×3 (02:17→09:54)
[2021-02-16] MEDS ORDERED: methaDONE HCL 10 MG TABLET ONE (03:27)
[2021-02-16] MEDS ORDERED: methaDONE HCL 40 MG DISPERSABLE TABLET ONE (03:28)
[2021-02-16 07:23] VITALS: BP 109/82; PULSE 74; TEMP 97.9
[2021-02-16] MEDS: hydrOXYzine PAMOATE 50 MG CAPSULE (FP) PO PRN (07:51)
[2021-02-16] MEDS: PANTOPRAZOLE 20 MG TABLET PO SCH (09:55)
[2021-02-16] MEDS: ESCITALOPRAM OXALATE 10 MG TABLET PO SCH (09:55)
[2021-02-16] MEDS: NICOTINE 7 MG/24 HOURS TOPICAL PATCH TD SCH (09:55)
[2021-02-16] MEDS: PRENATAL VITAMINS W/ FOLIC ACID TABLET (FP) PO SCH (09:55)
== END 2021-02-16 10:30 | disposition home or self-care (01) | DRG 772 ==
LOC: YASAS 13:55 → Y5N 13:56
PROVIDERS: ADMIT Allergy & Immunology; ATTEND Allergy & Immunology
PROC: HZ42ZZZ Group Counseling for Substance Abuse Treatment, Cognitive-Behavioral (ICD-10-PCS; principal; 2021-02-04)
DX: F10.20 Alcohol dependence, uncomplicated (principal); F11.20 Opioid dependence, uncomplicated; F13.20 Sedative, hypnotic or anxiolytic dependence, uncomplicated; F14.20 Cocaine dependence, uncomplicated; F17.210 Nicotine dependence, cigarettes, uncomplicated; F19.282 Other psychoactive substance dependence with psychoactive substance-induced sleep disorder; F19.280 Other psychoactive substance dependence with psychoactive substance-induced anxiety disorder; F41.9 Anxiety disorder, unspecified; F32.9 Major depressive disorder, single episode, unspecified; G62.9 Polyneuropathy, unspecified; K21.9 Gastro-esophageal reflux disease without esophagitis; Z62.810 Personal history of physical and sexual abuse in childhood; Z91.5 Personal history of self-harm; Z98.84 Bariatric surgery status; Z90.49 Acquired absence of other specified parts of digestive tract; Z98.82 Breast implant status
CPT/HCPCS: 36415; 82962; 87389; 93005; 93010; 99284-25; C9803; J0735; U0003; U0005

== ENCOUNTER 2021-02-08 22:18 | Emergency (ER) | payer OTHER ==
[2021-02-08 22:23] VITALS: TEMP 98.1; BMI 25.0
[2021-02-09 07:06] VITALS: BP 110/74; PULSE 76
== END 2021-02-09 07:55 | disposition home or self-care (01) ==
LOC: JER 22:18
DX: R45.1 Restlessness and agitation (principal)
CPT/HCPCS: 82962; 93005; 93010; 99284-25

== ENCOUNTER 2021-06-09 11:17 | Inpatient (IN) | payer OTHER ==
[2021-06-09 12:18] VITALS: BMI 22.8
[2021-06-09] MEDS ORDERED: diazePAM 5 MG TABLET PO PRN (13:05)
[2021-06-09] MEDS ORDERED: MAG HYDROX/AL HYDROX/SIMETH 30 ML UNIT-DOSE CUP PO PRN (13:25)
[2021-06-09] MEDS ORDERED: MAGNESIUM CITRATE 300 ML BOTTLE PO PRN (13:25)
[2021-06-09] MEDS ORDERED: IBUPROFEN 400 MG TABLET (FP) PO PRN (13:25)
[2021-06-09] MEDS ORDERED: ONDANSETRON *ODT* 4 MG TABLET SL PRN (13:25)
[2021-06-09] MEDS ORDERED: MAGNESIUM HYDROX 2400MG/30ML ORAL SUSPENSION 30 ML CUP PO PRN (13:25)
[2021-06-09] MEDS ORDERED: BISMUTH SUBSALICYLATE 524 MG/30 ML PO PRN (13:25)
[2021-06-09] MEDS ORDERED: ACETAMINOPHEN 325 MG TABLET (FP) PO PRN (13:25)
[2021-06-09] MEDS ORDERED: MENTHOL/PHENOL 1 EACH UD MM PRN (13:25)
[2021-06-09] MEDS: LORazepam 1 MG TABLET PO PRN (13:59)
[2021-06-09] MEDS: hydrOXYzine PAMOATE 25 MG CAPSULE (FP) PO PRN (13:59)
[2021-06-09] MEDS: METHOCARBAMOL 500 MG TABLET PO PRN (13:59)
[2021-06-09] MEDS ORDERED: LORazepam 2 MG TABLET PO ONE (14:00)
[2021-06-09] MEDS ORDERED: NICOTINE 14 MG/24 HOURS TOPICAL PATCH TD PRN (14:00)
[2021-06-09] MEDS: NICOTINE POLACRILEX 4 MG GUM BUC PRN ×3 (14:01→22:16)
[2021-06-09 14:58] LABS: HEMATOCRIT 32.9 % (32.4-45.2); MCH 29.4 pg (25.7-33.7); MCHC 33.4 g/dl (32.0-36.0); MEAN PLT VOLUME 9.1 fl (7.5-11.1); PLATELET COUNT 136 10^3/uL (134-434); RBC 3.74 M/mm3 (3.60-5.2); RDW 16.9 % (11.6-15.6); WHITE BLOOD COUNT 3.6 K/mm3 (4.0-10.0)
[2021-06-09 15:03] LABS: BLOOD UREA NITROGEN 14.4 mg/dL (7-18)
[2021-06-09 15:04] LABS: ALBUMIN 2.5 g/dl (3.4-5.0)
[2021-06-09 15:06] LABS: CREATININE 0.9 mg/dL (0.55-1.3)
[2021-06-09 15:08] LABS: BILIRUBIN,TOTAL 0.5 mg/dL (0.2-1); TOT PROT 6.4 g/dl (6.4-8.2)
[2021-06-09 15:56] LABS: HIV INTERPRETATION NEGATIVE (NEGATIVE)
[2021-06-09] MEDS ORDERED: diazePAM 5 MG TABLET PO SCH (17:00)
[2021-06-09] MEDS: LORazepam 2 MG TABLET PO SCH ×2 (17:50→22:09)
[2021-06-09] MEDS ORDERED: MELATONIN 5 MG TABLETS PO SCH (22:00)
[2021-06-09] MEDS: QUEtiapine FUMARATE 200 MG TABLET PO SCH (22:09)
[2021-06-09] MEDS: THIAMINE HCL 100 MG TABLET (FP) PO SCH (22:09)
[2021-06-09] MEDS: ACETAMINOPHEN 325 MG TABLET (FP) PO PRN (22:09)
[2021-06-10] MEDS: methaDONE HCL 40 MG DISPERSABLE TABLET PO SCH (05:18)
[2021-06-10] MEDS: LORazepam 2 MG TABLET PO SCH ×4 (05:18→22:26)
[2021-06-10] MEDS: NICOTINE POLACRILEX 4 MG GUM BUC PRN ×3 (05:29→17:25)
[2021-06-10] MEDS: LORazepam 1 MG TABLET PO PRN ×2 (07:27→13:27)
[2021-06-10] MEDS: ACETAMINOPHEN 325 MG TABLET (FP) PO PRN (07:28)
[2021-06-10] MEDS: hydrOXYzine PAMOATE 25 MG CAPSULE (FP) PO PRN ×2 (09:24→17:21)
[2021-06-10] MEDS ORDERED: ENOXAPARIN NA (PORCINE) 40 MG/0.4 ML DISP.SYRIN SQ SCH (10:00)
[2021-06-10] MEDS: PRENATAL VITAMINS W/ FOLIC ACID TABLET (FP) PO SCH (10:09)
[2021-06-10] MEDS: PANTOPRAZOLE 20 MG TABLET PO SCH (10:09)
[2021-06-10] MEDS: NICOTINE 10 MG CARTRIDGE (INHALER) IH PRN (10:57)
[2021-06-10 11:07] LABS: HEMATOCRIT 33.8 % (32.4-45.2); HEMOGLOBIN 10.8 GM/dL (10.7-15.3); MCH 28.9 pg (25.7-33.7); MCHC 31.8 g/dl (32.0-36.0); MEAN CELL VOLUME 90.8 fl (80-96); MEAN PLT VOLUME 9.8 fl (7.5-11.1); PLATELET COUNT 124 10^3/uL (134-434); RBC 3.73 M/mm3 (3.60-5.2); RDW 17.2 % (11.6-15.6); WHITE BLOOD COUNT 3.2 K/mm3 (4.0-10.0)
[2021-06-10 12:04] LABS: ANISOCYTOSIS 0; HELMET CELLS 0; HOWELL-JOLLY BODIES 0; MACROCYTOSIS 0; OVALOCYTE 0; PLATELET ESTIMATE DECREASED; ROULEAU 0; SICKELED CELLS 0; TARGET CELLS 0; TEAR DROP CELLS 0; TOXIC GRANULATION 0
[2021-06-10 13:28] LABS: ALBUMIN 2.2 g/dl (3.4-5.0); BLOOD UREA NITROGEN 15.3 mg/dL (7-18); MAGNESIUM 1.8 mg/dL (1.8-2.4)
[2021-06-10 13:32] LABS: CREATININE 0.8 mg/dL (0.55-1.3); PHOSPHOROUS 5.9 mg/dL (2.5-4.9)
[2021-06-10 13:33] LABS: BILIRUBIN,TOTAL 0.6 mg/dL (0.2-1); TOT PROT 6.1 g/dl (6.4-8.2)
[2021-06-10] MEDS: THIAMINE HCL 100 MG TABLET (FP) PO SCH (22:25)
[2021-06-10] MEDS: QUEtiapine FUMARATE 200 MG TABLET PO SCH (22:25)
[2021-06-11] MEDS: hydrOXYzine PAMOATE 25 MG CAPSULE (FP) PO PRN ×2 (01:05→10:13)
[2021-06-11] MEDS: LORazepam 1 MG TABLET PO PRN ×2 (01:05→12:20)
[2021-06-11] MEDS: LORazepam 1 MG TABLET PO SCH ×4 (05:09→22:45)
[2021-06-11] MEDS: NICOTINE 10 MG CARTRIDGE (INHALER) IH PRN (05:10)
[2021-06-11] MEDS: methaDONE HCL 40 MG DISPERSABLE TABLET PO SCH (05:10)
[2021-06-11] MEDS ORDERED: diazePAM 5 MG TABLET PO SCH (06:00)
[2021-06-11] MEDS: NICOTINE POLACRILEX 4 MG GUM BUC PRN (06:10)
[2021-06-11] MEDS: PANTOPRAZOLE 20 MG TABLET PO SCH (10:12)
[2021-06-11] MEDS: PRENATAL VITAMINS W/ FOLIC ACID TABLET (FP) PO SCH (10:13)
[2021-06-11] MEDS: METHOCARBAMOL 500 MG TABLET PO PRN (12:20)
[2021-06-11 12:42] LABS: HEMATOCRIT 33.7 % (32.4-45.2); HEMOGLOBIN 11.3 GM/dL (10.7-15.3); MCH 29.1 pg (25.7-33.7); MCHC 33.4 g/dl (32.0-36.0); MEAN CELL VOLUME 87.1 fl (80-96); PLATELET COUNT 158 10^3/uL (134-434); RBC 3.87 M/mm3 (3.60-5.2); RDW 16.4 % (11.6-15.6)
[2021-06-11 12:44] LABS: CALCIUM 8.2 mg/dL (8.5-10.1)
[2021-06-11 12:45] LABS: ALBUMIN 2.6 g/dl (3.4-5.0); BLOOD UREA NITROGEN 18.5 mg/dL (7-18)
[2021-06-11 12:48] LABS: CREATININE 0.9 mg/dL (0.55-1.3)
[2021-06-11 12:50] LABS: BILIRUBIN,TOTAL 0.5 mg/dL (0.2-1); TOT PROT 6.6 g/dl (6.4-8.2)
[2021-06-11] MEDS: cloNIDine HCL 0.1 MG TABLET PO PRN ×2 (12:53→22:44)
[2021-06-11] MEDS: hydrOXYzine PAMOATE 50 MG CAPSULE (FP) PO PRN ×2 (12:54→22:46)
[2021-06-11] MEDS: THIAMINE HCL 100 MG TABLET (FP) PO SCH (22:44)
[2021-06-11] MEDS: QUEtiapine FUMARATE 200 MG TABLET PO SCH (22:44)
[2021-06-12] MEDS: NICOTINE 10 MG CARTRIDGE (INHALER) IH PRN ×3 (00:55→10:09)
[2021-06-12] MEDS: NICOTINE POLACRILEX 4 MG GUM BUC PRN ×4 (00:56→21:16)
[2021-06-12] MEDS: methaDONE HCL 40 MG DISPERSABLE TABLET PO SCH (05:56)
[2021-06-12] MEDS: LORazepam 0.5 MG TABLET PO SCH ×4 (05:57→23:17)
[2021-06-12] MEDS: hydrOXYzine PAMOATE 50 MG CAPSULE (FP) PO PRN ×3 (05:59→18:53)
[2021-06-12] MEDS ORDERED: diazePAM 5 MG TABLET PO SCH (06:00)
[2021-06-12] MEDS: LORazepam 0.5 MG TABLET PO PRN ×2 (08:56→18:53)
[2021-06-12] MEDS: PRENATAL VITAMINS W/ FOLIC ACID TABLET (FP) PO SCH (10:06)
[2021-06-12] MEDS: PANTOPRAZOLE 20 MG TABLET PO SCH (10:06)
[2021-06-12] MEDS: cloNIDine HCL 0.1 MG TABLET PO PRN (10:06)
[2021-06-12] MEDS: METHOCARBAMOL 500 MG TABLET PO PRN (10:08)
[2021-06-12] MEDS: QUEtiapine FUMARATE 200 MG TABLET PO SCH (23:05)
[2021-06-12] MEDS: THIAMINE HCL 100 MG TABLET (FP) PO SCH (23:05)
[2021-06-13] MEDS ORDERED: LORazepam 0.5 MG TABLET PO ONE (05:00)
[2021-06-13] MEDS: methaDONE HCL 40 MG DISPERSABLE TABLET PO SCH (05:36)
[2021-06-13] MEDS: NICOTINE 10 MG CARTRIDGE (INHALER) IH PRN ×2 (05:39→10:18)
[2021-06-13] MEDS ORDERED: diazePAM 5 MG TABLET PO ONE (06:00)
[2021-06-13] MEDS: hydrOXYzine PAMOATE 50 MG CAPSULE (FP) PO PRN ×2 (06:37→10:20)
[2021-06-13] MEDS: NICOTINE POLACRILEX 4 MG GUM BUC PRN ×2 (06:37→12:50)
[2021-06-13] MEDS: PRENATAL VITAMINS W/ FOLIC ACID TABLET (FP) PO SCH (10:18)
[2021-06-13] MEDS: PANTOPRAZOLE 20 MG TABLET PO SCH (10:19)
[2021-06-13] MEDS: METHOCARBAMOL 500 MG TABLET PO PRN (10:20)
[2021-06-13] MEDS: cloNIDine HCL 0.1 MG TABLET PO PRN (12:50)
[2021-06-13 17:28] VITALS: BP 100/67; PULSE 63; TEMP 97.2
== END 2021-06-13 18:30 | disposition home or self-care (01) | DRG 773 ==
LOC: YASAS 11:17 → Y6N 12:52 → Y3N 06-10 11:09
PROVIDERS: ADMIT Allergy & Immunology; ATTEND Allergy & Immunology
PROC: HZ2ZZZZ Detoxification Services for Substance Abuse Treatment (ICD-10-PCS; principal; 2021-06-09)
DX: F10.230 Alcohol dependence with withdrawal, uncomplicated (principal); F13.20 Sedative, hypnotic or anxiolytic dependence, uncomplicated; F11.20 Opioid dependence, uncomplicated; F14.20 Cocaine dependence, uncomplicated; F17.210 Nicotine dependence, cigarettes, uncomplicated; F33.1 Major depressive disorder, recurrent, moderate; F19.282 Other psychoactive substance dependence with psychoactive substance-induced sleep disorder; B18.2 Chronic viral hepatitis C; K21.9 Gastro-esophageal reflux disease without esophagitis; M54.5 Low back pain; Z62.810 Personal history of physical and sexual abuse in childhood; Z86.2 Personal history of diseases of the blood and blood-forming organs and certain disorders involving the immune mechanism; Z90.49 Acquired absence of other specified parts of digestive tract; Z98.890 Other specified postprocedural states; Z86.69 Personal history of other diseases of the nervous system and sense organs; Z56.0 Unemployment, unspecified
CPT/HCPCS: 36415; 80053; 81025; 83735; 84100; 85025; 85027; 86780; 87389; C9803; J0735; Q0162; U0003; U0005

== ENCOUNTER 2021-06-13 18:44 | Inpatient (IN) | payer OTHER ==
[2021-06-13] MEDS ORDERED: MENTHOL/PHENOL 1 EACH UD MM PRN (21:51)
[2021-06-13] MEDS ORDERED: guaiFENesin 200 MG/10 ML 10 ML UNIT-DOSE CUPS PO PRN (21:51)
[2021-06-13] MEDS ORDERED: MAGNESIUM CITRATE 300 ML BOTTLE PO PRN (21:51)
[2021-06-13] MEDS ORDERED: P-EPHED 60MG/TRIPROLIDI 2.5MG TABLET PO PRN (21:51)
[2021-06-13] MEDS ORDERED: MAGNESIUM HYDROX 2400MG/30ML ORAL SUSPENSION 30 ML CUP PO PRN (21:51)
[2021-06-13] MEDS ORDERED: IBUPROFEN 400 MG TABLET (FP) PO PRN (21:51)
[2021-06-13] MEDS ORDERED: LOPERAMIDE HCL 2 MG CAPSULE PO PRN (21:51)
[2021-06-13] MEDS ORDERED: QUEtiapine FUMARATE 200 MG TABLET PO ONE (21:56)
[2021-06-13] MEDS: MELATONIN 5 MG TABLETS PO SCH (22:17)
[2021-06-13] MEDS: THIAMINE HCL 100 MG TABLET (FP) PO SCH (22:17)
[2021-06-13] MEDS: NICOTINE 10 MG CARTRIDGE (INHALER) IH PRN (22:21)
[2021-06-14] MEDS: hydrOXYzine PAMOATE 25 MG CAPSULE (FP) PO PRN ×2 (03:39→21:44)
[2021-06-14] MEDS: methaDONE HCL 40 MG DISPERSABLE TABLET PO SCH (06:15)
[2021-06-14] MEDS: NICOTINE 10 MG CARTRIDGE (INHALER) IH PRN ×2 (06:18→16:47)
[2021-06-14] MEDS: NICOTINE 14 MG/24 HOURS TOPICAL PATCH TD SCH (10:09)
[2021-06-14] MEDS: PRENATAL VITAMINS W/ FOLIC ACID TABLET (FP) PO SCH (10:09)
[2021-06-14] MEDS ORDERED: QUEtiapine FUMARATE 200 MG TABLET PO ONE (21:22)
[2021-06-14] MEDS: MELATONIN 5 MG TABLETS PO SCH (21:44)
[2021-06-14] MEDS ORDERED: QUEtiapine FUMARATE 100 MG TABLET (FP) PO ONE (21:45)
[2021-06-14] MEDS: THIAMINE HCL 100 MG TABLET (FP) PO SCH (23:40)
[2021-06-15] MEDS: methaDONE HCL 40 MG DISPERSABLE TABLET PO SCH (06:01)
[2021-06-15] MEDS: NICOTINE 10 MG CARTRIDGE (INHALER) IH PRN ×4 (06:01→21:49)
[2021-06-15] MEDS: NICOTINE POLACRILEX 4 MG GUM BUC PRN ×4 (06:02→21:49)
[2021-06-15] MEDS: PRENATAL VITAMINS W/ FOLIC ACID TABLET (FP) PO SCH (11:16)
[2021-06-15] MEDS: NICOTINE 14 MG/24 HOURS TOPICAL PATCH TD SCH (11:16)
[2021-06-15] MEDS: QUEtiapine FUMARATE 200 MG TABLET PO SCH (21:48)
[2021-06-15] MEDS: MELATONIN 5 MG TABLETS PO SCH (21:48)
[2021-06-15] MEDS: THIAMINE HCL 100 MG TABLET (FP) PO SCH (21:48)
[2021-06-15] MEDS: hydrOXYzine PAMOATE 25 MG CAPSULE (FP) PO PRN (21:49)
[2021-06-16] MEDS: MAG HYDROX/AL HYDROX/SIMETH 30 ML UNIT-DOSE CUP PO PRN (05:23)
[2021-06-16] MEDS: NICOTINE POLACRILEX 4 MG GUM BUC PRN ×5 (05:52→21:56)
[2021-06-16] MEDS: hydrOXYzine PAMOATE 25 MG CAPSULE (FP) PO PRN ×3 (05:52→21:54)
[2021-06-16] MEDS: NICOTINE 10 MG CARTRIDGE (INHALER) IH PRN ×4 (05:53→19:15)
[2021-06-16] MEDS: methaDONE HCL 40 MG DISPERSABLE TABLET PO SCH (05:54)
[2021-06-16] MEDS: PRENATAL VITAMINS W/ FOLIC ACID TABLET (FP) PO SCH (10:39)
[2021-06-16] MEDS: NICOTINE 14 MG/24 HOURS TOPICAL PATCH TD SCH (10:39)
[2021-06-16] MEDS: QUEtiapine FUMARATE 200 MG TABLET PO SCH (21:54)
[2021-06-16] MEDS: MELATONIN 5 MG TABLETS PO SCH (21:54)
[2021-06-16] MEDS: THIAMINE HCL 100 MG TABLET (FP) PO SCH (21:54)
[2021-06-17] MEDS: NICOTINE 10 MG CARTRIDGE (INHALER) IH PRN ×5 (02:21→18:56)
[2021-06-17] MEDS: methaDONE HCL 40 MG DISPERSABLE TABLET PO SCH (06:10)
[2021-06-17] MEDS: hydrOXYzine PAMOATE 25 MG CAPSULE (FP) PO PRN ×3 (06:10→21:31)
[2021-06-17] MEDS: NICOTINE POLACRILEX 4 MG GUM BUC PRN ×5 (06:10→22:22)
[2021-06-17] MEDS: NICOTINE 14 MG/24 HOURS TOPICAL PATCH TD SCH (09:58)
[2021-06-17] MEDS: PRENATAL VITAMINS W/ FOLIC ACID TABLET (FP) PO SCH (09:59)
[2021-06-17] MEDS: MAG HYDROX/AL HYDROX/SIMETH 30 ML UNIT-DOSE CUP PO PRN (20:16)
[2021-06-17] MEDS: THIAMINE HCL 100 MG TABLET (FP) PO SCH (21:31)
[2021-06-17] MEDS: MELATONIN 5 MG TABLETS PO SCH (21:31)
[2021-06-17] MEDS: QUEtiapine FUMARATE 200 MG TABLET PO SCH (21:31)
[2021-06-18] MEDS: NICOTINE 10 MG CARTRIDGE (INHALER) IH PRN ×5 (03:07→21:15)
[2021-06-18] MEDS: NICOTINE POLACRILEX 4 MG GUM BUC PRN ×5 (03:07→19:05)
[2021-06-18] MEDS: methaDONE HCL 40 MG DISPERSABLE TABLET PO SCH (05:58)
[2021-06-18] MEDS: hydrOXYzine PAMOATE 25 MG CAPSULE (FP) PO PRN ×2 (05:58→20:07)
[2021-06-18] MEDS: NICOTINE 14 MG/24 HOURS TOPICAL PATCH TD SCH (10:54)
[2021-06-18] MEDS: PRENATAL VITAMINS W/ FOLIC ACID TABLET (FP) PO SCH (10:54)
[2021-06-18] MEDS: MELATONIN 5 MG TABLETS PO SCH (21:15)
[2021-06-18] MEDS: QUEtiapine FUMARATE 200 MG TABLET PO SCH (21:15)
[2021-06-18] MEDS: THIAMINE HCL 100 MG TABLET (FP) PO SCH (21:15)
[2021-06-19] MEDS: methaDONE HCL 40 MG DISPERSABLE TABLET PO SCH (06:03)
[2021-06-19] MEDS: hydrOXYzine PAMOATE 25 MG CAPSULE (FP) PO PRN ×3 (06:04→21:15)
[2021-06-19] MEDS: NICOTINE 10 MG CARTRIDGE (INHALER) IH PRN ×3 (06:05→19:03)
[2021-06-19] MEDS: METHOCARBAMOL 500 MG TABLET PO PRN ×2 (11:12→21:14)
[2021-06-19] MEDS: NICOTINE POLACRILEX 4 MG GUM BUC PRN ×4 (11:13→21:15)
[2021-06-19] MEDS: PRENATAL VITAMINS W/ FOLIC ACID TABLET (FP) PO SCH (11:16)
[2021-06-19] MEDS: NICOTINE 14 MG/24 HOURS TOPICAL PATCH TD SCH (11:16)
[2021-06-19] MEDS: MELATONIN 5 MG TABLETS PO SCH (21:14)
[2021-06-19] MEDS: QUEtiapine FUMARATE 200 MG TABLET PO SCH (21:14)
[2021-06-19] MEDS: THIAMINE HCL 100 MG TABLET (FP) PO SCH (21:15)
[2021-06-20] MEDS: NICOTINE 10 MG CARTRIDGE (INHALER) IH PRN ×4 (06:00→21:37)
[2021-06-20] MEDS: hydrOXYzine PAMOATE 25 MG CAPSULE (FP) PO PRN ×3 (06:00→21:39)
[2021-06-20] MEDS: methaDONE HCL 40 MG DISPERSABLE TABLET PO SCH (06:01)
[2021-06-20] MEDS: NICOTINE POLACRILEX 4 MG GUM BUC PRN ×3 (06:02→15:02)
[2021-06-20] MEDS: PRENATAL VITAMINS W/ FOLIC ACID TABLET (FP) PO SCH (10:42)
[2021-06-20] MEDS: METHOCARBAMOL 500 MG TABLET PO PRN ×2 (10:43→21:39)
[2021-06-20] MEDS: NICOTINE 14 MG/24 HOURS TOPICAL PATCH TD SCH (10:44)
[2021-06-20] MEDS: THIAMINE HCL 100 MG TABLET (FP) PO SCH (21:36)
[2021-06-20] MEDS: QUEtiapine FUMARATE 200 MG TABLET PO SCH (21:36)
[2021-06-20] MEDS: MELATONIN 5 MG TABLETS PO SCH (21:37)
[2021-06-21] MEDS: METHOCARBAMOL 500 MG TABLET PO PRN ×2 (05:51→21:30)
[2021-06-21] MEDS: NICOTINE 10 MG CARTRIDGE (INHALER) IH PRN ×3 (05:51→21:28)
[2021-06-21] MEDS: methaDONE HCL 40 MG DISPERSABLE TABLET PO SCH (05:51)
[2021-06-21] MEDS: NICOTINE POLACRILEX 4 MG GUM BUC PRN ×5 (05:52→21:28)
[2021-06-21] MEDS: hydrOXYzine PAMOATE 25 MG CAPSULE (FP) PO PRN ×2 (05:52→21:27)
[2021-06-21] MEDS: NICOTINE 14 MG/24 HOURS TOPICAL PATCH TD SCH (10:33)
[2021-06-21] MEDS: PRENATAL VITAMINS W/ FOLIC ACID TABLET (FP) PO SCH (10:33)
[2021-06-21] MEDS: QUEtiapine FUMARATE 200 MG TABLET PO SCH (21:27)
[2021-06-21] MEDS: THIAMINE HCL 100 MG TABLET (FP) PO SCH (21:28)
[2021-06-21] MEDS: MELATONIN 5 MG TABLETS PO SCH (21:28)
[2021-06-22] MEDS: hydrOXYzine PAMOATE 25 MG CAPSULE (FP) PO PRN (06:01)
[2021-06-22] MEDS: NICOTINE POLACRILEX 4 MG GUM BUC PRN (06:01)
[2021-06-22] MEDS: NICOTINE 10 MG CARTRIDGE (INHALER) IH PRN (06:01)
[2021-06-22] MEDS: methaDONE HCL 40 MG DISPERSABLE TABLET PO SCH (06:02)
[2021-06-22 07:10] VITALS: BP 121/80; PULSE 66; TEMP 97.3
== END 2021-06-22 09:20 | disposition home or self-care (01) | DRG 772 ==
LOC: YASAS 18:44 → Y5N 18:47
PROVIDERS: ADMIT Allergy & Immunology; ATTEND Allergy & Immunology
PROC: HZ42ZZZ Group Counseling for Substance Abuse Treatment, Cognitive-Behavioral (ICD-10-PCS; principal; 2021-06-13)
DX: F11.20 Opioid dependence, uncomplicated (principal); F10.20 Alcohol dependence, uncomplicated; F13.20 Sedative, hypnotic or anxiolytic dependence, uncomplicated; F14.20 Cocaine dependence, uncomplicated; F17.210 Nicotine dependence, cigarettes, uncomplicated; F33.1 Major depressive disorder, recurrent, moderate; F39 Unspecified mood [affective] disorder; K21.9 Gastro-esophageal reflux disease without esophagitis; G47.00 Insomnia, unspecified; G62.9 Polyneuropathy, unspecified; M54.5 Low back pain; G89.29 Other chronic pain; Z62.810 Personal history of physical and sexual abuse in childhood; Z86.2 Personal history of diseases of the blood and blood-forming organs and certain disorders involving the immune mechanism; Z86.19 Personal history of other infectious and parasitic diseases; Z86.69 Personal history of other diseases of the nervous system and sense organs; Z98.84 Bariatric surgery status; Z90.49 Acquired absence of other specified parts of digestive tract; Z91.018 Allergy to other foods

== ENCOUNTER 2022-05-26 11:07 | Inpatient (IN) | payer OTHER ==
[2022-05-26] MEDS ORDERED: METHOCARBAMOL 500 MG TABLET PO PRN ×2 (15:50→15:53)
[2022-05-26] MEDS ORDERED: ONDANSETRON *ODT* 4 MG TABLET SL PRN ×2 (15:50→15:53)
[2022-05-26] MEDS ORDERED: MAG HYDROX/AL HYDROX/SIMETH 30 ML UNIT-DOSE CUP PO PRN ×2 (15:50→15:53)
[2022-05-26] MEDS ORDERED: LOPERAMIDE HCL 2 MG CAPSULE PO PRN ×2 (15:50→15:53)
[2022-05-26] MEDS ORDERED: MAGNESIUM CITRATE 300 ML BOTTLE PO PRN ×2 (15:50→15:53)
[2022-05-26] MEDS ORDERED: IBUPROFEN 400 MG TABLET (FP) PO PRN ×2 (15:50→15:53)
[2022-05-26] MEDS ORDERED: BENZOCAINE/MENTHOL (CHLORASEPTIC ) LOZENGE MM PRN ×2 (15:50→15:53)
[2022-05-26] MEDS ORDERED: ACETAMINOPHEN 325 MG TABLET (FP) PO PRN ×4 (15:50→15:53)
[2022-05-26] MEDS ORDERED: IBUPROFEN 600 MG TABLET (FP) PO PRN ×2 (15:50→15:53)
[2022-05-26] MEDS ORDERED: BISMUTH SUBSALICYLATE 524 MG/30 ML PO PRN ×2 (15:50→15:53)
[2022-05-26] MEDS ORDERED: DICYCLOMINE HCL 10 MG CAPSULE PO PRN ×2 (15:50→15:53)
[2022-05-26] MEDS ORDERED: MAGNESIUM HYDROX 2400MG/30ML ORAL SUSPENSION 30 ML CUP PO PRN ×2 (15:50→15:53)
[2022-05-26] MEDS ORDERED: LORazepam 1 MG TABLET PO PRN (15:50)
[2022-05-26] MEDS ORDERED: diazePAM 5 MG TABLET PO PRN (15:53)
[2022-05-26] MEDS ORDERED: NICOTINE 10 MG CARTRIDGE (INHALER) IH PRN (15:53)
[2022-05-26 15:54] VITALS: BMI 19.0
[2022-05-26] MEDS ORDERED: NICOTINE 21 MG/24 HOURS TOPICAL PATCH TD SCH (16:00)
[2022-05-26] MEDS ORDERED: PRENATAL VITAMINS W/ FOLIC ACID TABLET (FP) PO SCH (16:00)
[2022-05-26] MEDS ORDERED: diazePAM 5 MG TABLET PO SCH (17:00)
[2022-05-26] MEDS: LORazepam 2 MG TABLET PO SCH ×2 (17:49→22:27)
[2022-05-26] MEDS: hydrOXYzine PAMOATE 25 MG CAPSULE (FP) PO SCH ×2 (17:49→22:25)
[2022-05-26] MEDS: NICOTINE 14 MG/24 HOURS TOPICAL PATCH TD SCH (17:50)
[2022-05-26] MEDS: PRENATAL VITAMINS W/ FOLIC ACID TABLET (FP) PO SCH (17:50)
[2022-05-26] MEDS: NICOTINE POLACRILEX 2 MG GUM BUC PRN (17:58)
[2022-05-26] MEDS ORDERED: hydrOXYzine PAMOATE 25 MG CAPSULE (FP) PO SCH (18:00)
[2022-05-26] MEDS ORDERED: THIAMINE HCL 100 MG TABLET (FP) PO SCH (22:00)
[2022-05-26] MEDS ORDERED: MELATONIN 5 MG TABLETS PO SCH ×2 (22:00)
[2022-05-26] MEDS: THIAMINE HCL 100 MG TABLET (FP) PO SCH (22:25)
[2022-05-27] MEDS: NICOTINE POLACRILEX 2 MG GUM BUC PRN ×2 (02:18→10:01)
[2022-05-27] MEDS: hydrOXYzine PAMOATE 25 MG CAPSULE (FP) PO SCH ×5 (05:58→22:49)
[2022-05-27] MEDS: LORazepam 2 MG TABLET PO SCH ×4 (05:58→22:50)
[2022-05-27] MEDS ORDERED: methaDONE HCL 10 MG TABLET PO ONE (09:07)
[2022-05-27] MEDS: PRENATAL VITAMINS W/ FOLIC ACID TABLET (FP) PO SCH (09:54)
[2022-05-27] MEDS: NICOTINE 14 MG/24 HOURS TOPICAL PATCH TD SCH (09:57)
[2022-05-27 10:30] LABS: HEMATOCRIT 26.7 % (32.4-45.2); HEMOGLOBIN 8.9 GM/dL (10.7-15.3); MCH 29.1 pg (25.7-33.7); MCHC 33.5 g/dl (32.0-36.0); MEAN CELL VOLUME 86.9 fl (80-96); PLATELET COUNT 174 10^3/uL (134-434); RBC 3.07 M/mm3 (3.60-5.2); RDW 18.6 % (11.6-15.6); WHITE BLOOD COUNT 6.3 K/mm3 (4.0-10.0)
[2022-05-27 10:43] LABS: CALCIUM 8.2 mg/dL (8.5-10.1)
[2022-05-27 10:44] LABS: ALBUMIN 2.8 g/dl (3.4-5.0); BLOOD UREA NITROGEN 13.1 mg/dL (7-18)
[2022-05-27 10:47] LABS: CREATININE 0.8 mg/dL (0.55-1.3)
[2022-05-27 10:49] LABS: BILIRUBIN,TOTAL 0.4 mg/dL (0.2-1); TOT PROT 6.5 g/dl (6.4-8.2)
[2022-05-27] MEDS: DIVALPROEX SODIUM 500 MG TABLET E.C. PO SCH ×2 (11:19→22:50)
[2022-05-27 12:26] LABS: HEMATOCRIT 28.9 % (32.4-45.2); HEMOGLOBIN 9.6 GM/dL (10.7-15.3); MCH 29.1 pg (25.7-33.7); MCHC 33.4 g/dl (32.0-36.0); MEAN CELL VOLUME 87.2 fl (80-96); MEAN PLT VOLUME 7.5 fl (7.5-11.1); PLATELET COUNT 168 10^3/uL (134-434); RBC 3.31 M/mm3 (3.60-5.2); RDW 18.8 % (11.6-15.6); WHITE BLOOD COUNT 3.4 K/mm3 (4.0-10.0)
[2022-05-27 13:02] LABS: CALCIUM 8.2 mg/dL (8.5-10.1)
[2022-05-27 13:03] LABS: ALBUMIN 2.6 g/dl (3.4-5.0); BLOOD UREA NITROGEN 9.8 mg/dL (7-18)
[2022-05-27 13:05] LABS: CREATININE 0.7 mg/dL (0.55-1.3)
[2022-05-27 13:06] LABS: BILIRUBIN,TOTAL 0.4 mg/dL (0.2-1); TOT PROT 6.4 g/dl (6.4-8.2)
[2022-05-27] MEDS ORDERED: LORazepam 0.5 MG TABLET PO ONE (13:45)
[2022-05-27] MEDS: GABAPENTIN 400 MG CAPSULE PO SCH ×2 (13:55→22:50)
[2022-05-27] MEDS: propRANOLol HCL 10 MG TABLET PO SCH ×2 (18:17→22:50)
[2022-05-27] MEDS ORDERED: QUEtiapine FUMARATE 200 MG TABLET PO SCH (22:00)
[2022-05-27] MEDS: THIAMINE HCL 100 MG TABLET (FP) PO SCH (22:50)
[2022-05-28] MEDS ORDERED: diazePAM 5 MG TABLET PO SCH (06:00)
[2022-05-28] MEDS ORDERED: methaDONE HCL 10 MG TABLET PO SCH (06:00)
[2022-05-28] MEDS: GABAPENTIN 400 MG CAPSULE PO SCH (06:43)
[2022-05-28] MEDS: propRANOLol HCL 10 MG TABLET PO SCH ×4 (06:44→22:32)
[2022-05-28] MEDS: LORazepam 1 MG TABLET PO SCH ×4 (06:48→22:32)
[2022-05-28] MEDS: hydrOXYzine PAMOATE 25 MG CAPSULE (FP) PO SCH ×6 (06:51→22:34)
[2022-05-28] MEDS: NICOTINE 14 MG/24 HOURS TOPICAL PATCH TD SCH (11:10)
[2022-05-28] MEDS: PRENATAL VITAMINS W/ FOLIC ACID TABLET (FP) PO SCH (11:11)
[2022-05-28] MEDS: LACTULOSE 20 GM/30 ML UDC (FOR ORAL USE ONLY) PO PRN ×2 (11:19→22:33)
[2022-05-28] MEDS: GABAPENTIN 100 MG CAPSULE PO SCH ×3 (14:21→22:32)
[2022-05-28] MEDS: THIAMINE HCL 100 MG TABLET (FP) PO SCH (22:32)
[2022-05-29] MEDS ORDERED: LORazepam 0.5 MG TABLET PO PRN
[2022-05-29] MEDS: LORazepam 0.5 MG TABLET PO SCH ×4 (05:14→22:27)
[2022-05-29] MEDS: GABAPENTIN 100 MG CAPSULE PO SCH ×2 (05:14→13:36)
[2022-05-29] MEDS: propRANOLol HCL 10 MG TABLET PO SCH ×4 (05:15→22:27)
[2022-05-29] MEDS ORDERED: diazePAM 5 MG TABLET PO SCH (06:00)
[2022-05-29] MEDS: hydrOXYzine PAMOATE 25 MG CAPSULE (FP) PO SCH ×5 (06:17→22:28)
[2022-05-29] MEDS: NICOTINE 10 MG CARTRIDGE (INHALER) IH PRN ×2 (07:46→12:10)
[2022-05-29] MEDS: PRENATAL VITAMINS W/ FOLIC ACID TABLET (FP) PO SCH (10:29)
[2022-05-29] MEDS: NICOTINE 14 MG/24 HOURS TOPICAL PATCH TD SCH (10:29)
[2022-05-29] MEDS: NICOTINE POLACRILEX 2 MG GUM BUC PRN ×4 (10:33→22:35)
[2022-05-29] MEDS ORDERED: GABAPENTIN 100 MG CAPSULE PO SCH (22:00)
[2022-05-29] MEDS: THIAMINE HCL 100 MG TABLET (FP) PO SCH (22:28)
[2022-05-30] MEDS ORDERED: LORazepam 0.5 MG TABLET PO ONE (05:00)
[2022-05-30] MEDS: propRANOLol HCL 10 MG TABLET PO SCH ×2 (05:30→10:46)
[2022-05-30] MEDS: hydrOXYzine PAMOATE 25 MG CAPSULE (FP) PO SCH ×2 (05:30→10:46)
[2022-05-30] MEDS ORDERED: diazePAM 5 MG TABLET PO ONE (06:00)
[2022-05-30] MEDS ORDERED: FERROUS SO4 325 MG TABLET (FP) PO SCH (10:00)
[2022-05-30 10:09] VITALS: BP 92/61; PULSE 74; RESP 17; TEMP 98
[2022-05-30] MEDS: PRENATAL VITAMINS W/ FOLIC ACID TABLET (FP) PO SCH (10:45)
[2022-05-30] MEDS: NICOTINE 14 MG/24 HOURS TOPICAL PATCH TD SCH (10:47)
[2022-05-30] MEDS ORDERED: LACTULOSE 20 GM/30 ML UDC (FOR ORAL USE ONLY) PO SCH (11:00)
== END 2022-05-30 12:52 | disposition home or self-care (01) | DRG 773 ==
LOC: YASAS 11:07 → Y6N 15:45
PROVIDERS: ADMIT Allergy & Immunology; ATTEND Surgery
PROC: HZ2ZZZZ Detoxification Services for Substance Abuse Treatment (ICD-10-PCS; principal; 2022-05-26)
DX: F10.230 Alcohol dependence with withdrawal, uncomplicated (principal); F13.230 Sedative, hypnotic or anxiolytic dependence with withdrawal, uncomplicated; F11.20 Opioid dependence, uncomplicated; F14.20 Cocaine dependence, uncomplicated; F17.210 Nicotine dependence, cigarettes, uncomplicated; F33.1 Major depressive disorder, recurrent, moderate; D50.9 Iron deficiency anemia, unspecified; K21.9 Gastro-esophageal reflux disease without esophagitis; R79.89 Other specified abnormal findings of blood chemistry; Z62.810 Personal history of physical and sexual abuse in childhood; F19.280 Other psychoactive substance dependence with psychoactive substance-induced anxiety disorder; F19.282 Other psychoactive substance dependence with psychoactive substance-induced sleep disorder; Z86.19 Personal history of other infectious and parasitic diseases; Z86.69 Personal history of other diseases of the nervous system and sense organs
CPT/HCPCS: 36415; 80053; 80164; 81025; 82140; 85027; 86780; C9803-CS; U0003; U0005

== ENCOUNTER 2022-10-02 13:27 | Inpatient (IN) | payer OTHER ==
[2022-10-02 14:05] VITALS: BMI 17.7
[2022-10-02] MEDS ORDERED: IBUPROFEN 400 MG TABLET (FP) PO PRN (14:42)
[2022-10-02] MEDS ORDERED: LOPERAMIDE HCL 2 MG CAPSULE PO PRN (14:42)
[2022-10-02] MEDS ORDERED: ACETAMINOPHEN 325 MG TABLET (FP) PO PRN ×2 (14:42)
[2022-10-02] MEDS ORDERED: BENZOCAINE/MENTHOL (CHLORASEPTIC ) LOZENGE MM PRN (14:42)
[2022-10-02] MEDS ORDERED: ONDANSETRON *ODT* 4 MG TABLET SL PRN (14:42)
[2022-10-02] MEDS ORDERED: POLYETHYLENE GLYCOL (HEALTHYLAX) 3350 17 GM PACKET PO PRN (14:42)
[2022-10-02] MEDS ORDERED: MAG HYDROX/AL HYDROX/SIMETH 30 ML UNIT-DOSE CUP PO PRN (14:42)
[2022-10-02] MEDS ORDERED: DICYCLOMINE HCL 10 MG CAPSULE PO PRN (14:42)
[2022-10-02] MEDS ORDERED: BISMUTH SUBSALICYLATE 524 MG/30 ML PO PRN (14:42)
[2022-10-02] MEDS ORDERED: MAGNESIUM HYDROX 2400MG/30ML ORAL SUSPENSION 30 ML CUP PO PRN (14:42)
[2022-10-02] MEDS ORDERED: LORazepam 2 MG TABLET PO ONE (14:42)
[2022-10-02] MEDS ORDERED: IBUPROFEN 600 MG TABLET (FP) PO PRN (14:42)
[2022-10-02] MEDS ORDERED: NICOTINE POLACRILEX 4 MG GUM BUC PRN (14:42)
[2022-10-02] MEDS ORDERED: NALOXONE HCL (KLOXXADO) 8 MG SPRAY NS PRN (14:42)
[2022-10-02] MEDS: NICOTINE 10 MG CARTRIDGE (INHALER) IH PRN (17:52)
[2022-10-02] MEDS: NICOTINE 21 MG/24 HOURS TOPICAL PATCH TD SCH (17:53)
[2022-10-02] MEDS: FERROUS SO4 325 MG TABLET (FP) PO SCH (17:58)
[2022-10-02] MEDS: METHOCARBAMOL 500 MG TABLET PO PRN (17:58)
[2022-10-02] MEDS: LORazepam 2 MG TABLET PO SCH ×2 (18:00→22:48)
[2022-10-02] MEDS ORDERED: SILVER SULFADIAZINE 1% TOP CREAM 50 GM JAR TP SCH (22:00)
[2022-10-02] MEDS ORDERED: MELATONIN 5 MG TABLETS PO SCH (22:00)
[2022-10-02] MEDS: FAMOTIDINE 20 MG TABLET PO SCH (22:51)
[2022-10-02] MEDS: THIAMINE HCL 100 MG TABLET (FP) PO SCH (22:51)
[2022-10-02] MEDS: VITAMINS A AND D TOPICAL OINTMENT 60 GM TUBE TP SCH (23:24)
[2022-10-02] MEDS: SILVER SULFADIAZINE 1% TOP CREAM 50 GM JAR TP SCH (23:25)
[2022-10-03] MEDS: LORazepam 2 MG TABLET PO SCH ×4 (05:28→22:52)
[2022-10-03] MEDS: METHOCARBAMOL 500 MG TABLET PO PRN ×2 (05:44→21:12)
[2022-10-03] MEDS: FERROUS SO4 325 MG TABLET (FP) PO SCH ×2 (07:16→17:12)
[2022-10-03] MEDS: QUEtiapine FUMARATE 100 MG TABLET (FP) PO SCH (10:08)
[2022-10-03] MEDS: FAMOTIDINE 20 MG TABLET PO SCH ×2 (10:08→22:58)
[2022-10-03] MEDS: PRENATAL VITAMINS W/ FOLIC ACID TABLET (FP) PO SCH (10:08)
[2022-10-03] MEDS: SILVER SULFADIAZINE 1% TOP CREAM 50 GM JAR TP SCH ×2 (10:08→22:59)
[2022-10-03] MEDS: NICOTINE 21 MG/24 HOURS TOPICAL PATCH TD SCH (10:08)
[2022-10-03] MEDS: VITAMINS A AND D TOPICAL OINTMENT 60 GM TUBE TP SCH ×2 (10:09→22:59)
[2022-10-03] MEDS: NICOTINE 10 MG CARTRIDGE (INHALER) IH PRN (10:22)
[2022-10-03 10:35] LABS: HEMATOCRIT 32.5 % (32.4-45.2); HEMOGLOBIN 10.2 GM/dL (10.7-15.3); MCH 30.2 pg (25.7-33.7); MCHC 31.4 g/dl (32.0-36.0); MEAN CELL VOLUME 96.2 fl (80-96); MEAN PLT VOLUME 7.5 fl (7.5-11.1); PLATELET COUNT 187 10^3/uL (134-434); RBC 3.38 M/mm3 (3.60-5.2); RDW 17.2 % (11.6-15.6); WHITE BLOOD COUNT 4.2 K/mm3 (4.0-10.0)
[2022-10-03 10:42] LABS: CALCIUM 7.5 mg/dL (8.5-10.1)
[2022-10-03 10:43] LABS: ALBUMIN 2.2 g/dl (3.4-5.0); BLOOD UREA NITROGEN 13.6 mg/dL (7-18)
[2022-10-03] MEDS ORDERED: methaDONE HCL 10 MG TABLET PO SCH (10:45)
[2022-10-03 10:48] LABS: BILIRUBIN,TOTAL 0.5 mg/dL (0.2-1)
[2022-10-03] MEDS: GABAPENTIN 400 MG CAPSULE PO SCH ×2 (14:00→22:58)
[2022-10-03] MEDS ORDERED: QUEtiapine FUMARATE 300 MG TABLET PO SCH (22:00)
[2022-10-03] MEDS: THIAMINE HCL 100 MG TABLET (FP) PO SCH (22:58)
[2022-10-04] MEDS: NICOTINE 10 MG CARTRIDGE (INHALER) IH PRN ×2 (02:12→15:39)
[2022-10-04] MEDS: LORazepam 1 MG TABLET PO SCH ×4 (05:17→22:12)
[2022-10-04] MEDS: GABAPENTIN 400 MG CAPSULE PO SCH ×2 (05:17→15:34)
[2022-10-04] MEDS: FERROUS SO4 325 MG TABLET (FP) PO SCH ×2 (07:13→17:47)
[2022-10-04] MEDS: PRENATAL VITAMINS W/ FOLIC ACID TABLET (FP) PO SCH (11:01)
[2022-10-04] MEDS: VITAMINS A AND D TOPICAL OINTMENT 60 GM TUBE TP SCH ×2 (11:01→22:11)
[2022-10-04] MEDS: SILVER SULFADIAZINE 1% TOP CREAM 50 GM JAR TP SCH ×2 (11:01→22:11)
[2022-10-04] MEDS: NICOTINE 21 MG/24 HOURS TOPICAL PATCH TD SCH (11:01)
[2022-10-04] MEDS: FAMOTIDINE 20 MG TABLET PO SCH ×2 (11:01→22:10)
[2022-10-04] MEDS: QUEtiapine FUMARATE 100 MG TABLET (FP) PO SCH (11:01)
[2022-10-04] MEDS: LORazepam 1 MG TABLET PO PRN ×2 (15:37→19:59)
[2022-10-04] MEDS: PANTOPRAZOLE 40 MG TABLET PO SCH (17:48)
[2022-10-04] MEDS: THIAMINE HCL 100 MG TABLET (FP) PO SCH (22:11)
[2022-10-04] MEDS: METHOCARBAMOL 500 MG TABLET PO PRN (22:17)
[2022-10-05] MEDS ORDERED: LORazepam 0.5 MG TABLET PO PRN
[2022-10-05] MEDS: LORazepam 0.5 MG TABLET PO SCH ×4 (05:38→22:45)
[2022-10-05] MEDS: METHOCARBAMOL 500 MG TABLET PO PRN ×3 (05:57→22:44)
[2022-10-05] MEDS: NICOTINE 10 MG CARTRIDGE (INHALER) IH PRN (06:06)
[2022-10-05] MEDS ORDERED: methaDONE HCL 10 MG TABLET PO SCH (07:45)
[2022-10-05] MEDS: FERROUS SO4 325 MG TABLET (FP) PO SCH ×2 (08:01→17:06)
[2022-10-05] MEDS: NICOTINE 21 MG/24 HOURS TOPICAL PATCH TD SCH (10:13)
[2022-10-05] MEDS: PANTOPRAZOLE 40 MG TABLET PO SCH (10:14)
[2022-10-05] MEDS: FAMOTIDINE 20 MG TABLET PO SCH ×2 (10:14→22:44)
[2022-10-05] MEDS: PRENATAL VITAMINS W/ FOLIC ACID TABLET (FP) PO SCH (10:14)
[2022-10-05] MEDS: SILVER SULFADIAZINE 1% TOP CREAM 50 GM JAR TP SCH ×2 (10:17→22:45)
[2022-10-05] MEDS: VITAMINS A AND D TOPICAL OINTMENT 60 GM TUBE TP SCH ×2 (10:18→22:45)
[2022-10-05] MEDS: THIAMINE HCL 100 MG TABLET (FP) PO SCH (22:43)
[2022-10-06] MEDS ORDERED: LORazepam 0.5 MG TABLET PO ONE (05:00)
[2022-10-06] MEDS: METHOCARBAMOL 500 MG TABLET PO PRN (05:30)
[2022-10-06] MEDS: NICOTINE 10 MG CARTRIDGE (INHALER) IH PRN (06:07)
[2022-10-06] MEDS: FERROUS SO4 325 MG TABLET (FP) PO SCH (07:37)
[2022-10-06] MEDS ORDERED: methaDONE HCL 10 MG TABLET PO SCH (07:46)
[2022-10-06 09:00] VITALS: BP 142/92; PULSE 102; RESP 18; TEMP 97.3
[2022-10-06] MEDS: PRENATAL VITAMINS W/ FOLIC ACID TABLET (FP) PO SCH (09:45)
[2022-10-06] MEDS: FAMOTIDINE 20 MG TABLET PO SCH (09:45)
[2022-10-06] MEDS: PANTOPRAZOLE 40 MG TABLET PO SCH (09:45)
[2022-10-06] MEDS: SILVER SULFADIAZINE 1% TOP CREAM 50 GM JAR TP SCH (09:46)
[2022-10-06] MEDS: NICOTINE 21 MG/24 HOURS TOPICAL PATCH TD SCH (09:46)
[2022-10-06] MEDS: VITAMINS A AND D TOPICAL OINTMENT 60 GM TUBE TP SCH (09:46)
== END 2022-10-06 09:25 | disposition home or self-care (01) | DRG 773 ==
LOC: YASAS 13:27 → Y3N 15:39
PROVIDERS: ADMIT Allergy & Immunology; ATTEND Surgery
PROC: HZ2ZZZZ Detoxification Services for Substance Abuse Treatment (ICD-10-PCS; principal; 2022-10-02)
DX: F10.230 Alcohol dependence with withdrawal, uncomplicated (principal); F13.230 Sedative, hypnotic or anxiolytic dependence with withdrawal, uncomplicated; F11.20 Opioid dependence, uncomplicated; F14.20 Cocaine dependence, uncomplicated; F12.20 Cannabis dependence, uncomplicated; F17.210 Nicotine dependence, cigarettes, uncomplicated; F19.282 Other psychoactive substance dependence with psychoactive substance-induced sleep disorder; F19.24 Other psychoactive substance dependence with psychoactive substance-induced mood disorder; F31.81 Bipolar II disorder; F41.8 Other specified anxiety disorders; D50.9 Iron deficiency anemia, unspecified; G62.9 Polyneuropathy, unspecified; K74.60 Unspecified cirrhosis of liver; K21.9 Gastro-esophageal reflux disease without esophagitis; M19.90 Unspecified osteoarthritis, unspecified site; M54.50 Low back pain, unspecified; G89.29 Other chronic pain; R41.82 Altered mental status, unspecified; Z62.810 Personal history of physical and sexual abuse in childhood; Z86.19 Personal history of other infectious and parasitic diseases; W19.XXXA Unspecified fall, initial encounter; Y93.89 Activity, other specified; Y92.232 Corridor of hospital as the place of occurrence of the external cause
CPT/HCPCS: 36415; 80053; 81025; 82140; 85027; 86780; 93005; 93010; C9803-CS; U0003; U0005

== ENCOUNTER 2022-10-04 07:21 | Emergency (ER) | payer OTHER ==
[2022-10-04 07:29] VITALS: TEMP 98.3; BMI 19.3
[2022-10-04 11:37] VITALS: BP 105/76; PULSE 68; RESP 18
== END 2022-10-04 12:28 | disposition home or self-care (01) ==
LOC: JER 07:21
DX: S09.90XA Unspecified injury of head, initial encounter (principal); W01.198A Fall on same level from slipping, tripping and stumbling with subsequent striking against other object, initial encounter
CPT/HCPCS: 70450-TC; 99284-25

== ENCOUNTER 2023-03-01 21:50 | Inpatient (IN) | payer OTHER ==
[2023-03-01 21:58] VITALS: BMI 18.1
[2023-03-02] MEDS ORDERED: VANCOMYCIN 1,000 MG in DEXTROSE 5%-WATER - 250 ML IVPB ONE (01:19)
[2023-03-02] MEDS ORDERED: PIPERACILLIN/TAZOB 4.5 GM 4.5 GM in DEXTROSE 5%-WATER 100 ML IVPB ONE (01:19)
[2023-03-02] MEDS ORDERED: PIPERACILLIN/TAZOB 4.5 GM 4.5 GM/100 ML BAG IVPB ONE (01:41)
[2023-03-02] MEDS ORDERED: VANCOMYCIN/WATER FOR INJ (PEG) 1,000 MG/200 ML BAG IVPB ONE (01:41)
[2023-03-02 02:09] LABS: BASO % 1.1 % (0-2.0); EOS % 0.8 % (0-4.5); HEMATOCRIT 31.9 % (32.4-45.2); HEMOGLOBIN 10.5 GM/dL (10.7-15.3); LYMPH % 44.4 % (8-40); MCH 28.1 pg (25.7-33.7); MCHC 32.9 g/dl (32.0-36.0); MEAN CELL VOLUME 85.2 fl (80-96); MONO % 5.8 % (3.8-10.2); NEUT % 47.9 % (42.8-82.8); PLATELET COUNT 305 10^3/uL (134-434); RBC 3.75 M/mm3 (3.60-5.2); RDW 17.5 % (11.6-15.6); WHITE BLOOD COUNT 4.4 K/mm3 (4.0-10.0)
[2023-03-02 02:28] LABS: POTASSIUM 3.7 mmol/L (3.5-5.1)
[2023-03-02 02:30] LABS: CALCIUM 8.6 mg/dL (8.5-10.1)
[2023-03-02 02:31] LABS: ALBUMIN 2.5 g/dl (3.4-5.0); BLOOD UREA NITROGEN 9.4 mg/dL (7-18)
[2023-03-02 02:34] LABS: CREATININE 0.6 mg/dL (0.55-1.3)
[2023-03-02 02:35] LABS: BILIRUBIN,TOTAL 0.2 mg/dL (0.2-1); TOT PROT 6.5 g/dl (6.4-8.2)
[2023-03-02 03:23] LABS: ERYTHROCYTE SEDIMENTATION RATE 65 mm/hr (0-20)
[2023-03-02 06:21] LABS: BASO % 0.8 % (0-2.0); HEMATOCRIT 30.8 % (32.4-45.2); HEMOGLOBIN 10.4 GM/dL (10.7-15.3); LYMPH % 51.6 % (8-40); MCH 28.5 pg (25.7-33.7); MCHC 33.7 g/dl (32.0-36.0); MEAN CELL VOLUME 84.6 fl (80-96); MEAN PLT VOLUME 7.3 fl (7.5-11.1); NEUT % 39.6 % (42.8-82.8); PLATELET COUNT 301 10^3/uL (134-434); RBC 3.64 M/mm3 (3.60-5.2); RDW 17.2 % (11.6-15.6); WHITE BLOOD COUNT 4.6 K/mm3 (4.0-10.0)
[2023-03-02 06:39] LABS: ALBUMIN 2.2 g/dl (3.4-5.0); BLOOD UREA NITROGEN 8.8 mg/dL (7-18); CALCIUM 8.4 mg/dL (8.5-10.1); MAGNESIUM 1.9 mg/dL (1.8-2.4)
[2023-03-02 06:42] LABS: CREATININE 0.7 mg/dL (0.55-1.3); PHOSPHOROUS 3.4 mg/dL (2.5-4.9)
[2023-03-02 06:44] LABS: BILIRUBIN,TOTAL 0.6 mg/dL (0.2-1)
[2023-03-02] MEDS ORDERED: LORazepam 1 MG TABLET ONE (08:24)
[2023-03-02] MEDS ORDERED: methaDONE HCL 10 MG TABLET PO SCH (08:30)
[2023-03-02] MEDS ORDERED: methaDONE HCL 40 MG DISPERSABLE TABLET ONE (08:32)
[2023-03-02] MEDS ORDERED: PIPERACILLIN/TAZOB 3.375 GM 3.375 GM in DEXTROSE 5%-WATER - 50 ML IVPB ONE (09:00)
[2023-03-02] MEDS: PANTOPRAZOLE 40 MG TABLET PO SCH (10:37)
[2023-03-02] MEDS: NICOTINE 14 MG/24 HOURS TOPICAL PATCH TD SCH (10:37)
[2023-03-02] MEDS: ENOXAPARIN NA (PORCINE) 40 MG/0.4 ML DISP.SYRIN SQ SCH (10:38)
[2023-03-02] MEDS: LORazepam 1 MG TABLET PO PRN ×3 (11:18→18:23)
[2023-03-02] MEDS ORDERED: VANCOMYCIN 1 GM/200 ML PREMIX BAG (RESTRICTED TO ID ONLY) IVPB ONE (15:00)
[2023-03-02] MEDS ORDERED: NALOXONE HCL 0.4 MG/ML VIAL IVPUSH PRN (15:44)
[2023-03-02] MEDS: CEFTRIAXONE 1 GM in DEXTROSE 5%-WATER - 50 ML IVPB SCH (16:39)
[2023-03-02 18:22] VITALS: RESP 18
[2023-03-03] MEDS: LORazepam 1 MG TABLET PO PRN ×4 (02:06→20:14)
[2023-03-03] MEDS: VANCOMYCIN/WATER FOR INJ (PEG) 1,000 MG/200 ML BAG IVPB SCH ×2 (02:06→16:04)
[2023-03-03 10:07] LABS: EOS % 1.1 % (0-4.5); HEMATOCRIT 30.9 % (32.4-45.2); HEMOGLOBIN 10.3 GM/dL (10.7-15.3); LYMPH % 45.1 % (8-40); MCH 28.4 pg (25.7-33.7); MCHC 33.3 g/dl (32.0-36.0); MEAN CELL VOLUME 85.1 fl (80-96); MEAN PLT VOLUME 7.3 fl (7.5-11.1); MONO % 8.6 % (3.8-10.2); NEUT % 44.2 % (42.8-82.8); PLATELET COUNT 279 10^3/uL (134-434); RBC 3.63 M/mm3 (3.60-5.2); RDW 17.1 % (11.6-15.6); WHITE BLOOD COUNT 4.1 K/mm3 (4.0-10.0)
[2023-03-03 10:24] LABS: POTASSIUM 4.8 mmol/L (3.5-5.1)
[2023-03-03 10:26] LABS: CALCIUM 8.4 mg/dL (8.5-10.1)
[2023-03-03 10:27] LABS: ALBUMIN 2.4 g/dl (3.4-5.0); MAGNESIUM 1.8 mg/dL (1.8-2.4)
[2023-03-03 10:30] LABS: CREATININE 0.7 mg/dL (0.55-1.3); PHOSPHOROUS 5.2 mg/dL (2.5-4.9)
[2023-03-03 10:31] LABS: BILIRUBIN,TOTAL 0.2 mg/dL (0.2-1); TOT PROT 6.5 g/dl (6.4-8.2)
[2023-03-03] MEDS: ENOXAPARIN NA (PORCINE) 40 MG/0.4 ML DISP.SYRIN SQ SCH (11:22)
[2023-03-03] MEDS: CEFTRIAXONE 1 GM in DEXTROSE 5%-WATER - 50 ML IVPB SCH (11:22)
[2023-03-03] MEDS: NICOTINE 14 MG/24 HOURS TOPICAL PATCH TD SCH (11:23)
[2023-03-03] MEDS: PANTOPRAZOLE 40 MG TABLET PO SCH (11:26)
[2023-03-03 19:03] LABS: PH,URINE 5.5 (5.0-8.0); URINE APPEARANCE CLEAR; URINE BILIRUBIN NEGATIVE (NEGATIVE); URINE COLOR YELLOW; URINE GLUCOSE (UA) NEGATIVE (NEGATIVE); URINE KETONE NEGATIVE (NEGATIVE); URINE LEUK ESTERASE NEGATIVE (NEGATIVE); URINE NITRITE NEGATIVE (NEGATIVE); URINE PROTEIN NEGATIVE (NEGATIVE); URINE UROBILINOGEN 0.2 mg/dL (0.2-1.0)
[2023-03-03 19:50] LABS: OPIATES, URI NEGATIVE (NEGATIVE); URINE AMPHETAMINES NEGATIVE (NEGATIVE)
[2023-03-03 19:51] LABS: PHENCYCLIDINE,URINE NEGATIVE (NEGATIVE); URINE BARBITURATES NEGATIVE (NEGATIVE)
[2023-03-03 19:53] LABS: COCAINE, UR POSITIVE (NEGATIVE); METHADONE, UR POSITIVE (NEGATIVE); URINE BENZODIAZEPINES POSITIVE (NEGATIVE)
[2023-03-03] MEDS ORDERED: LORazepam 1 MG TABLET PO ONE (21:24)
[2023-03-03] MEDS ORDERED: GABAPENTIN 100 MG CAPSULE PO ONE (22:18)
[2023-03-04] MEDS: VANCOMYCIN/WATER FOR INJ (PEG) 1,000 MG/200 ML BAG IVPB SCH (03:00)
[2023-03-04 08:44] LABS: HEMATOCRIT 33.9 % (32.4-45.2); HEMOGLOBIN 11.3 GM/dL (10.7-15.3); MCH 28.3 pg (25.7-33.7); MCHC 33.4 g/dl (32.0-36.0); MEAN CELL VOLUME 84.9 fl (80-96); MEAN PLT VOLUME 7.4 fl (7.5-11.1); PLATELET COUNT 255 10^3/uL (134-434); RBC 3.99 M/mm3 (3.60-5.2); RDW 17.3 % (11.6-15.6); WHITE BLOOD COUNT 3.6 K/mm3 (4.0-10.0)
[2023-03-04 08:54] LABS: POTASSIUM 4.8 mmol/L (3.5-5.1)
[2023-03-04 08:57] LABS: BLOOD UREA NITROGEN 7.4 mg/dL (7-18); CALCIUM 8.9 mg/dL (8.5-10.1)
[2023-03-04 09:01] LABS: CREATININE 0.7 mg/dL (0.55-1.3)
[2023-03-04] MEDS: PANTOPRAZOLE 40 MG TABLET PO SCH (09:34)
[2023-03-04] MEDS: NICOTINE 14 MG/24 HOURS TOPICAL PATCH TD SCH (09:34)
[2023-03-04] MEDS: ENOXAPARIN NA (PORCINE) 40 MG/0.4 ML DISP.SYRIN SQ SCH ×2 (09:34→09:39)
[2023-03-04] MEDS ORDERED: LORazepam 2 MG TABLET PO PRN (09:42)
[2023-03-04] MEDS ORDERED: clonazePAM 0.5 MG TABLET PO SCH (10:00)
[2023-03-04 10:51] VITALS: BP 117/73; PULSE 65; TEMP 98.1
[2023-03-04] MEDS ORDERED: LORazepam 2 MG TABLET PO SCH (11:00)
[2023-03-04] MEDS ORDERED: LORazepam 1 MG TABLET PO SCH ×2 (11:00→11:23)
[2023-03-04] MEDS ORDERED: LORazepam 1 MG TABLET PO PRN (11:02)
[2023-03-04 11:04] LABS: ANISOCYTOSIS 1+; MACROCYTOSIS 0; OVALOCYTE 2+; TEAR DROP CELLS 1+
[2023-03-04] MEDS ORDERED: BACITRACIN ZINC 15 GM TUBE TOPICAL OINTMENT TP SCH (12:15)
[2023-03-04] MEDS ORDERED: AMOX TR/POT CLAV 875MG/125MG TABLETS (FP) PO SCH (17:30)
[2023-03-06] MEDS ORDERED: LORazepam 1 MG TABLET PO SCH (05:00)
[2023-03-07] MEDS ORDERED: LORazepam 0.5 MG TABLET PO PRN
[2023-03-07] MEDS ORDERED: LORazepam 0.5 MG TABLET PO SCH (05:00)
[2023-03-08] MEDS ORDERED: LORazepam 0.5 MG TABLET PO ONE (05:00)
== END 2023-03-04 12:30 | disposition other institution (70) | DRG 383 ==
LOC: JER 21:50 → JERBED 03-02 04:32 → J5S 03-02 09:05
PROVIDERS: ADMIT Internal Medicine; ATTEND Internal Medicine
PROC: HZ2ZZZZ Detoxification Services for Substance Abuse Treatment (ICD-10-PCS; principal; 2023-03-02)
DX: L03.113 Cellulitis of right upper limb (principal); R64 Cachexia; D64.9 Anemia, unspecified; F17.210 Nicotine dependence, cigarettes, uncomplicated; F19.10 Other psychoactive substance abuse, uncomplicated; K21.9 Gastro-esophageal reflux disease without esophagitis; Z68.1 Body mass index [BMI] 19.9 or less, adult
CPT/HCPCS: 0241U-QW; 36415; 70450-TC; 70486-TC; 72125-TC; 73090-TC-RT-FY; 76882-TC-RT-FY; 80048; 80053; 80307; 81003; 83735; 84100; 84703; 85025; 85651; 86140; 87040; 87070; 87205; 93005; 93010; 99285-25

== ENCOUNTER 2023-03-04 13:03 | Inpatient (IN) | payer OTHER ==
[2023-03-04 13:17] VITALS: BMI 18.7
[2023-03-04] MEDS ORDERED: MAG HYDROX/AL HYDROX/SIMETH 30 ML UNIT-DOSE CUP PO PRN (13:49)
[2023-03-04] MEDS ORDERED: IBUPROFEN 600 MG TABLET (FP) PO PRN (13:49)
[2023-03-04] MEDS ORDERED: POLYETHYLENE GLYCOL (HEALTHYLAX) 3350 17 GM PACKET PO PRN (13:49)
[2023-03-04] MEDS ORDERED: BISMUTH SUBSALICYLATE 262 MG/15 ML BTL PO PRN (13:49)
[2023-03-04] MEDS ORDERED: DICYCLOMINE HCL 10 MG CAPSULE PO PRN (13:49)
[2023-03-04] MEDS ORDERED: NALOXONE HCL (KLOXXADO) 8 MG SPRAY NS PRN (13:49)
[2023-03-04] MEDS ORDERED: MAGNESIUM HYDROX 2400MG/30ML ORAL SUSPENSION 30 ML CUP PO PRN (13:49)
[2023-03-04] MEDS ORDERED: ACETAMINOPHEN 325 MG TABLET (FP) PO PRN (13:49)
[2023-03-04] MEDS ORDERED: IBUPROFEN 400 MG TABLET (FP) PO PRN (13:49)
[2023-03-04] MEDS ORDERED: NALOXONE HCL 0.4 MG/ML VIAL IM PRN (13:49)
[2023-03-04] MEDS ORDERED: LOPERAMIDE HCL 2 MG CAPSULE PO PRN (13:49)
[2023-03-04] MEDS ORDERED: BENZOCAINE/MENTHOL (CHLORASEPTIC ) LOZENGE MM PRN (13:49)
[2023-03-04] MEDS ORDERED: guaiFENesin 600 MG TABLET.ER (FP) PO PRN (13:49)
[2023-03-04] MEDS ORDERED: BENZONATATE 200 MG CAPSULE PO PRN (13:49)
[2023-03-04] MEDS ORDERED: ONDANSETRON *ODT* 4 MG TABLET SL PRN (13:49)
[2023-03-04] MEDS: NICOTINE 14 MG/24 HOURS TOPICAL PATCH TD SCH (15:02)
[2023-03-04] MEDS ORDERED: LORazepam 1 MG TABLET ONE (15:49)
[2023-03-04] MEDS: LORazepam 1 MG TABLET PO PRN (15:51)
[2023-03-04] MEDS: PRENATAL VITAMINS W/ FOLIC ACID TABLET (FP) PO SCH (15:58)
[2023-03-04] MEDS: LORazepam 2 MG TABLET PO SCH ×2 (17:05→22:13)
[2023-03-04] MEDS: AMOX TR/POT CLAV 875MG/125MG TABLETS (FP) PO SCH (17:38)
[2023-03-04] MEDS: THIAMINE HCL 100 MG TABLET (FP) PO SCH (22:12)
[2023-03-04] MEDS: MELATONIN 5 MG TABLETS PO SCH (22:12)
[2023-03-05] MEDS: LORazepam 1 MG TABLET PO PRN (02:16)
[2023-03-05] MEDS: LORazepam 2 MG TABLET PO SCH ×4 (05:25→22:42)
[2023-03-05] MEDS ORDERED: methaDONE HCL 10 MG TABLET PO SCH (07:45)
[2023-03-05] MEDS: AMOX TR/POT CLAV 875MG/125MG TABLETS (FP) PO SCH ×2 (07:54→18:03)
[2023-03-05 10:03] LABS: POTASSIUM 5.1 mmol/L (3.5-5.1)
[2023-03-05 10:04] LABS: HEMOGLOBIN 11.7 GM/dL (10.7-15.3); MCH 28.4 pg (25.7-33.7); MCHC 33.4 g/dl (32.0-36.0); MEAN PLT VOLUME 7.4 fl (7.5-11.1); PLATELET COUNT 270 10^3/uL (134-434); RBC 4.12 M/mm3 (3.60-5.2); RDW 17.2 % (11.6-15.6); WHITE BLOOD COUNT 4.8 K/mm3 (4.0-10.0)
[2023-03-05] MEDS: PRENATAL VITAMINS W/ FOLIC ACID TABLET (FP) PO SCH (10:06)
[2023-03-05] MEDS: NICOTINE 14 MG/24 HOURS TOPICAL PATCH TD SCH (10:07)
[2023-03-05 10:36] LABS: ALBUMIN 2.8 g/dl (3.4-5.0); BLOOD UREA NITROGEN 12.5 mg/dL (7-18)
[2023-03-05 10:39] LABS: CREATININE 0.7 mg/dL (0.55-1.3)
[2023-03-05 10:41] LABS: BILIRUBIN,TOTAL 0.2 mg/dL (0.2-1); TOT PROT 7.1 g/dl (6.4-8.2)
[2023-03-05] MEDS: THIAMINE HCL 100 MG TABLET (FP) PO SCH (22:41)
[2023-03-05] MEDS: MELATONIN 5 MG TABLETS PO SCH (22:42)
[2023-03-06] MEDS: LORazepam 1 MG TABLET PO SCH ×4 (05:32→22:15)
[2023-03-06] MEDS: NICOTINE 10 MG CARTRIDGE (INHALER) IH PRN ×3 (05:53→19:51)
[2023-03-06] MEDS: AMOX TR/POT CLAV 875MG/125MG TABLETS (FP) PO SCH ×2 (08:20→17:28)
[2023-03-06] MEDS: PRENATAL VITAMINS W/ FOLIC ACID TABLET (FP) PO SCH (10:10)
[2023-03-06] MEDS: NICOTINE 14 MG/24 HOURS TOPICAL PATCH TD SCH (10:12)
[2023-03-06] MEDS: LORazepam 1 MG TABLET PO PRN (14:53)
[2023-03-06] MEDS: hydrOXYzine PAMOATE 25 MG CAPSULE (FP) PO PRN (22:14)
[2023-03-06] MEDS: MELATONIN 5 MG TABLETS PO SCH (22:15)
[2023-03-06] MEDS: THIAMINE HCL 100 MG TABLET (FP) PO SCH (22:15)
[2023-03-07] MEDS ORDERED: LORazepam 0.5 MG TABLET PO PRN
[2023-03-07] MEDS: LORazepam 0.5 MG TABLET PO SCH ×4 (05:14→22:25)
[2023-03-07] MEDS: NICOTINE 10 MG CARTRIDGE (INHALER) IH PRN ×2 (05:20→22:31)
[2023-03-07] MEDS: AMOX TR/POT CLAV 875MG/125MG TABLETS (FP) PO SCH ×2 (08:23→17:59)
[2023-03-07] MEDS: NICOTINE 14 MG/24 HOURS TOPICAL PATCH TD SCH (10:21)
[2023-03-07] MEDS: PRENATAL VITAMINS W/ FOLIC ACID TABLET (FP) PO SCH (10:40)
[2023-03-07] MEDS: THIAMINE HCL 100 MG TABLET (FP) PO SCH (22:25)
[2023-03-07] MEDS: MELATONIN 5 MG TABLETS PO SCH (22:25)
[2023-03-07] MEDS: hydrOXYzine PAMOATE 25 MG CAPSULE (FP) PO PRN (22:26)
[2023-03-08] MEDS ORDERED: LORazepam 0.5 MG TABLET PO ONE (05:00)
[2023-03-08] MEDS: AMOX TR/POT CLAV 875MG/125MG TABLETS (FP) PO SCH ×2 (07:03→17:10)
[2023-03-08] MEDS: PRENATAL VITAMINS W/ FOLIC ACID TABLET (FP) PO SCH (09:51)
[2023-03-08] MEDS: NICOTINE 14 MG/24 HOURS TOPICAL PATCH TD SCH (09:52)
[2023-03-08] MEDS: NICOTINE POLACRILEX 4 MG GUM BUC PRN ×3 (10:50→22:24)
[2023-03-08 16:57] VITALS: RESP 16
[2023-03-08] MEDS: hydrOXYzine PAMOATE 25 MG CAPSULE (FP) PO PRN (17:10)
[2023-03-08] MEDS: MELATONIN 5 MG TABLETS PO SCH (22:22)
[2023-03-08] MEDS: THIAMINE HCL 100 MG TABLET (FP) PO SCH (22:22)
[2023-03-08] MEDS: METHOCARBAMOL 500 MG TABLET PO PRN (22:23)
[2023-03-09] MEDS: METHOCARBAMOL 500 MG TABLET PO PRN (05:49)
[2023-03-09] MEDS: AMOX TR/POT CLAV 875MG/125MG TABLETS (FP) PO SCH (07:18)
[2023-03-09 09:53] VITALS: BP 92/60; PULSE 79; TEMP 97.6
[2023-03-09] MEDS: PRENATAL VITAMINS W/ FOLIC ACID TABLET (FP) PO SCH (10:32)
[2023-03-09] MEDS: NICOTINE 14 MG/24 HOURS TOPICAL PATCH TD SCH (10:34)
[2023-03-09] MEDS: NICOTINE POLACRILEX 4 MG GUM BUC PRN (10:36)
== END 2023-03-09 12:20 | disposition other institution (70) | DRG 773 ==
LOC: YASAS 13:03 → Y6N 15:02
PROVIDERS: ADMIT Allergy & Immunology; ATTEND Surgery
PROC: HZ2ZZZZ Detoxification Services for Substance Abuse Treatment (ICD-10-PCS; principal; 2023-03-04)
DX: F10.230 Alcohol dependence with withdrawal, uncomplicated (principal); F11.20 Opioid dependence, uncomplicated; F14.20 Cocaine dependence, uncomplicated; F12.20 Cannabis dependence, uncomplicated; F17.213 Nicotine dependence, cigarettes, with withdrawal; G62.9 Polyneuropathy, unspecified; G40.909 Epilepsy, unspecified, not intractable, without status epilepticus; L02.413 Cutaneous abscess of right upper limb; L21.9 Seborrheic dermatitis, unspecified; R63.4 Abnormal weight loss; Z68.1 Body mass index [BMI] 19.9 or less, adult; Z86.19 Personal history of other infectious and parasitic diseases; Z90.49 Acquired absence of other specified parts of digestive tract; Z98.84 Bariatric surgery status; Z56.0 Unemployment, unspecified; Z59.00 Homelessness unspecified
CPT/HCPCS: 36415; 80053; 81025; 85027; 86780; 87811; C9803-CS; U0003; U0005

== ENCOUNTER 2023-03-09 12:30 | Inpatient (IN) | payer OTHER ==
[~2023-03-09 12:30] MED LIST: ACETAMINOPHEN 325 MG TABLET (FP) PO PRN; AMMONIUM LACTATE 12% LOTION 225 GM BOTTLE TP PRN; BENZOCAINE/MENTHOL (CHLORASEPTIC ) LOZENGE MM PRN; BENZONATATE 200 MG CAPSULE PO PRN; COLLOIDAL OATMEAL 1 BAR EACH TP PRN; MAG HYDROX/AL HYDROX/SIMETH 30 ML UNIT-DOSE CUP PO PRN; METHOCARBAMOL 500 MG TABLET PO PRN; NALOXONE HCL (KLOXXADO) 8 MG SPRAY NS PRN; NALOXONE HCL 0.4 MG/ML VIAL IVPUSH PRN; POLYETHYLENE GLYCOL (HEALTHYLAX) 3350 17 GM PACKET PO PRN; guaiFENesin 600 MG TABLET.ER (FP) PO PRN
[2023-03-09] MEDS: GABAPENTIN 400 MG CAPSULE PO SCH ×2 (15:34→21:38)
[2023-03-09] MEDS: NICOTINE POLACRILEX 4 MG GUM BUC PRN ×2 (15:36→21:40)
[2023-03-09] MEDS: AMOX TR/POT CLAV 875MG/125MG TABLETS (FP) PO SCH (17:38)
[2023-03-09] MEDS: THIAMINE HCL 100 MG TABLET (FP) PO SCH (21:38)
[2023-03-09] MEDS: hydrOXYzine PAMOATE 25 MG CAPSULE (FP) PO PRN (21:39)
[2023-03-09] MEDS ORDERED: QUEtiapine FUMARATE 100 MG TABLET (FP) PO SCH (22:00)
[2023-03-09] MEDS ORDERED: MELATONIN 5 MG TABLETS PO SCH (22:00)
[2023-03-09] MEDS ORDERED: QUEtiapine FUMARATE 50 MG TABLET PO SCH (22:00)
[2023-03-10] MEDS: GABAPENTIN 400 MG CAPSULE PO SCH ×4 (05:44→21:38)
[2023-03-10] MEDS ORDERED: methaDONE HCL 10 MG TABLET PO SCH (06:00)
[2023-03-10] MEDS: AMOX TR/POT CLAV 875MG/125MG TABLETS (FP) PO SCH ×2 (07:07→19:57)
[2023-03-10] MEDS: ONDANSETRON *ODT* 4 MG TABLET SL PRN (09:24)
[2023-03-10] MEDS: NICOTINE POLACRILEX 4 MG GUM BUC PRN ×3 (09:30→21:39)
[2023-03-10] MEDS: PRENATAL VITAMINS W/ FOLIC ACID TABLET (FP) PO SCH (09:48)
[2023-03-10] MEDS: NICOTINE 14 MG/24 HOURS TOPICAL PATCH TD SCH (09:48)
[2023-03-10 13:06] LABS: HIV INTERPRETATION NEGATIVE (NEGATIVE)
[2023-03-10] MEDS: hydrOXYzine PAMOATE 25 MG CAPSULE (FP) PO PRN (15:27)
[2023-03-10] MEDS: QUEtiapine FUMARATE 50 MG TABLET PO SCH (21:38)
[2023-03-10] MEDS: THIAMINE HCL 100 MG TABLET (FP) PO SCH (21:38)
[2023-03-11] MEDS: GABAPENTIN 400 MG CAPSULE PO SCH ×3 (05:57→21:53)
[2023-03-11] MEDS: hydrOXYzine PAMOATE 25 MG CAPSULE (FP) PO PRN ×2 (05:59→21:54)
[2023-03-11] MEDS: NICOTINE POLACRILEX 4 MG GUM BUC PRN (06:01)
[2023-03-11] MEDS: AMOX TR/POT CLAV 875MG/125MG TABLETS (FP) PO SCH ×2 (07:03→17:37)
[2023-03-11] MEDS: NICOTINE 14 MG/24 HOURS TOPICAL PATCH TD SCH (09:47)
[2023-03-11] MEDS: PRENATAL VITAMINS W/ FOLIC ACID TABLET (FP) PO SCH (09:47)
[2023-03-11] MEDS: NICOTINE 10 MG CARTRIDGE (INHALER) IH PRN ×2 (16:45→21:55)
[2023-03-11] MEDS: THIAMINE HCL 100 MG TABLET (FP) PO SCH (21:53)
[2023-03-11] MEDS: QUEtiapine FUMARATE 50 MG TABLET PO SCH (21:53)
[2023-03-12] MEDS: GABAPENTIN 400 MG CAPSULE PO SCH ×3 (06:07→21:09)
[2023-03-12] MEDS: hydrOXYzine PAMOATE 25 MG CAPSULE (FP) PO PRN ×2 (06:08→21:11)
[2023-03-12] MEDS: NICOTINE 10 MG CARTRIDGE (INHALER) IH PRN ×3 (06:10→21:10)
[2023-03-12] MEDS: LOPERAMIDE HCL 2 MG CAPSULE PO PRN ×2 (07:19→16:08)
[2023-03-12] MEDS: ONDANSETRON *ODT* 4 MG TABLET SL PRN (07:20)
[2023-03-12] MEDS: PRENATAL VITAMINS W/ FOLIC ACID TABLET (FP) PO SCH (10:28)
[2023-03-12] MEDS: THIAMINE HCL 100 MG TABLET (FP) PO SCH (21:09)
[2023-03-12] MEDS: QUEtiapine FUMARATE 50 MG TABLET PO SCH (21:09)
[2023-03-13] MEDS: GABAPENTIN 400 MG CAPSULE PO SCH ×3 (06:00→21:29)
[2023-03-13] MEDS: hydrOXYzine PAMOATE 25 MG CAPSULE (FP) PO PRN ×2 (06:01→21:30)
[2023-03-13] MEDS: NICOTINE 10 MG CARTRIDGE (INHALER) IH PRN ×4 (06:01→19:11)
[2023-03-13] MEDS: PRENATAL VITAMINS W/ FOLIC ACID TABLET (FP) PO SCH (10:31)
[2023-03-13] MEDS: QUEtiapine FUMARATE 50 MG TABLET PO SCH (21:29)
[2023-03-13] MEDS: THIAMINE HCL 100 MG TABLET (FP) PO SCH (21:30)
[2023-03-14] MEDS: NICOTINE 10 MG CARTRIDGE (INHALER) IH PRN ×4 (05:14→20:59)
[2023-03-14] MEDS: GABAPENTIN 400 MG CAPSULE PO SCH ×3 (06:18→21:37)
[2023-03-14] MEDS: hydrOXYzine PAMOATE 25 MG CAPSULE (FP) PO PRN ×2 (07:31→21:38)
[2023-03-14] MEDS: PRENATAL VITAMINS W/ FOLIC ACID TABLET (FP) PO SCH (10:19)
[2023-03-14] MEDS: MELATONIN 5 MG TABLETS PO PRN (21:37)
[2023-03-14] MEDS: QUEtiapine FUMARATE 50 MG TABLET PO SCH (21:37)
[2023-03-14] MEDS: THIAMINE HCL 100 MG TABLET (FP) PO SCH (21:37)
[2023-03-15] MEDS: ACAMPROSATE CALCIUM 333 MG TABLET.DR PO SCH ×2 (02:45→21:11)
[2023-03-15] MEDS: NICOTINE 10 MG CARTRIDGE (INHALER) IH PRN ×4 (05:54→18:14)
[2023-03-15] MEDS: GABAPENTIN 400 MG CAPSULE PO SCH ×3 (05:55→21:11)
[2023-03-15] MEDS: MAGNESIUM HYDROX 2400MG/30ML ORAL SUSPENSION 30 ML CUP PO PRN (08:05)
[2023-03-15] MEDS: hydrOXYzine PAMOATE 25 MG CAPSULE (FP) PO PRN ×2 (09:51→21:13)
[2023-03-15] MEDS: PRENATAL VITAMINS W/ FOLIC ACID TABLET (FP) PO SCH (09:51)
[2023-03-15] MEDS: ONDANSETRON *ODT* 4 MG TABLET SL PRN (17:43)
[2023-03-15] MEDS: THIAMINE HCL 100 MG TABLET (FP) PO SCH (21:11)
[2023-03-15] MEDS: QUEtiapine FUMARATE 200 MG TABLET PO SCH (21:11)
[2023-03-15] MEDS: MELATONIN 5 MG TABLETS PO PRN (21:11)
[2023-03-16] MEDS: ACAMPROSATE CALCIUM 333 MG TABLET.DR PO SCH ×3 (06:08→21:29)
[2023-03-16] MEDS: GABAPENTIN 400 MG CAPSULE PO SCH ×3 (06:08→21:29)
[2023-03-16] MEDS: NICOTINE 10 MG CARTRIDGE (INHALER) IH PRN ×3 (06:09→16:51)
[2023-03-16] MEDS: IBUPROFEN 400 MG TABLET (FP) PO PRN (06:13)
[2023-03-16] MEDS: PRENATAL VITAMINS W/ FOLIC ACID TABLET (FP) PO SCH (09:45)
[2023-03-16] MEDS: PANTOPRAZOLE 20 MG TABLET PO SCH (12:24)
[2023-03-16] MEDS: hydrOXYzine PAMOATE 25 MG CAPSULE (FP) PO PRN ×2 (14:52→21:30)
[2023-03-16] MEDS: MAGNESIUM HYDROX 2400MG/30ML ORAL SUSPENSION 30 ML CUP PO PRN (18:20)
[2023-03-16] MEDS: QUEtiapine FUMARATE 200 MG TABLET PO SCH (21:29)
[2023-03-16] MEDS: THIAMINE HCL 100 MG TABLET (FP) PO SCH (21:29)
[2023-03-16] MEDS: MELATONIN 5 MG TABLETS PO PRN (21:30)
[2023-03-17] MEDS: NICOTINE 10 MG CARTRIDGE (INHALER) IH PRN ×4 (03:04→19:06)
[2023-03-17] MEDS: ACAMPROSATE CALCIUM 333 MG TABLET.DR PO SCH ×3 (05:59→22:53)
[2023-03-17] MEDS: hydrOXYzine PAMOATE 25 MG CAPSULE (FP) PO PRN ×2 (05:59→21:19)
[2023-03-17] MEDS: GABAPENTIN 400 MG CAPSULE PO SCH ×3 (06:03→21:19)
[2023-03-17] MEDS: PRENATAL VITAMINS W/ FOLIC ACID TABLET (FP) PO SCH (09:44)
[2023-03-17] MEDS: PANTOPRAZOLE 20 MG TABLET PO SCH (09:44)
[2023-03-17] MEDS: IBUPROFEN 400 MG TABLET (FP) PO PRN (09:46)
[2023-03-17] MEDS ORDERED: QUEtiapine FUMARATE 200 MG TABLET PO SCH (10:43)
[2023-03-17] MEDS ORDERED: ACAMPROSATE CALCIUM 333 MG TABLET.DR PO SCH ×2 (14:00→18:00)
[2023-03-17] MEDS: QUETIAPINE FUMARATE 200 MG, QUETIAPINE FUMARATE 50 MG PO SCH (21:19)
[2023-03-17] MEDS: MELATONIN 5 MG TABLETS PO PRN (21:19)
[2023-03-17] MEDS: THIAMINE HCL 100 MG TABLET (FP) PO SCH (21:20)
[2023-03-18] MEDS: IBUPROFEN 400 MG TABLET (FP) PO PRN (06:00)
[2023-03-18] MEDS ORDERED: ACAMPROSATE CALCIUM 333 MG TABLET.DR PO SCH ×2 (06:00→08:00)
[2023-03-18] MEDS: hydrOXYzine PAMOATE 25 MG CAPSULE (FP) PO PRN ×2 (06:00→21:01)
[2023-03-18] MEDS: GABAPENTIN 400 MG CAPSULE PO SCH ×3 (06:01→21:01)
[2023-03-18] MEDS: NICOTINE 10 MG CARTRIDGE (INHALER) IH PRN ×5 (06:04→21:45)
[2023-03-18] MEDS: NICOTINE POLACRILEX 4 MG GUM BUC PRN ×5 (06:05→21:04)
[2023-03-18] MEDS: ACAMPROSATE CALCIUM 333 MG TABLET.DR PO SCH ×4 (07:33→21:45)
[2023-03-18] MEDS: PRENATAL VITAMINS W/ FOLIC ACID TABLET (FP) PO SCH (10:07)
[2023-03-18] MEDS: PANTOPRAZOLE 20 MG TABLET PO SCH (10:08)
[2023-03-18] MEDS: QUETIAPINE FUMARATE 200 MG, QUETIAPINE FUMARATE 50 MG PO SCH (21:01)
[2023-03-18] MEDS: THIAMINE HCL 100 MG TABLET (FP) PO SCH (21:01)
[2023-03-18] MEDS: MELATONIN 5 MG TABLETS PO PRN (21:02)
[2023-03-19] MEDS: NICOTINE 10 MG CARTRIDGE (INHALER) IH PRN ×4 (05:56→21:57)
[2023-03-19] MEDS: PANTOPRAZOLE 20 MG TABLET PO SCH (05:58)
[2023-03-19] MEDS: GABAPENTIN 400 MG CAPSULE PO SCH ×3 (05:59→21:54)
[2023-03-19] MEDS: NICOTINE POLACRILEX 4 MG GUM BUC PRN ×4 (06:03→21:57)
[2023-03-19] MEDS: hydrOXYzine PAMOATE 25 MG CAPSULE (FP) PO PRN ×2 (07:25→21:54)
[2023-03-19] MEDS: ACAMPROSATE CALCIUM 333 MG TABLET.DR PO SCH ×3 (07:25→20:41)
[2023-03-19] MEDS: PRENATAL VITAMINS W/ FOLIC ACID TABLET (FP) PO SCH (09:45)
[2023-03-19] MEDS: THIAMINE HCL 100 MG TABLET (FP) PO SCH (21:54)
[2023-03-19] MEDS: IBUPROFEN 600 MG TABLET (FP) PO PRN (21:54)
[2023-03-19] MEDS: QUETIAPINE FUMARATE 200 MG, QUETIAPINE FUMARATE 50 MG PO SCH (21:54)
[2023-03-19] MEDS: MELATONIN 5 MG TABLETS PO PRN (21:54)
[2023-03-20] MEDS: NICOTINE 10 MG CARTRIDGE (INHALER) IH PRN ×4 (02:48→21:16)
[2023-03-20] MEDS: NICOTINE POLACRILEX 4 MG GUM BUC PRN ×5 (02:49→21:16)
[2023-03-20] MEDS: GABAPENTIN 400 MG CAPSULE PO SCH ×3 (05:59→21:17)
[2023-03-20] MEDS: PANTOPRAZOLE 20 MG TABLET PO SCH (05:59)
[2023-03-20] MEDS: IBUPROFEN 400 MG TABLET (FP) PO PRN (06:00)
[2023-03-20] MEDS: ACAMPROSATE CALCIUM 333 MG TABLET.DR PO SCH ×4 (07:22→21:16)
[2023-03-20] MEDS: hydrOXYzine PAMOATE 25 MG CAPSULE (FP) PO PRN ×2 (07:23→21:16)
[2023-03-20] MEDS: LOPERAMIDE HCL 2 MG CAPSULE PO PRN (08:29)
[2023-03-20] MEDS: PRENATAL VITAMINS W/ FOLIC ACID TABLET (FP) PO SCH (09:26)
[2023-03-20] MEDS: QUETIAPINE FUMARATE 200 MG, QUETIAPINE FUMARATE 50 MG PO SCH (21:16)
[2023-03-20] MEDS: THIAMINE HCL 100 MG TABLET (FP) PO SCH (21:17)
[2023-03-20] MEDS: MELATONIN 5 MG TABLETS PO PRN (21:18)
[2023-03-21] MEDS: NICOTINE 10 MG CARTRIDGE (INHALER) IH PRN ×3 (05:59→21:27)
[2023-03-21] MEDS: NICOTINE POLACRILEX 4 MG GUM BUC PRN ×5 (06:00→19:48)
[2023-03-21] MEDS: ACAMPROSATE CALCIUM 333 MG TABLET.DR PO SCH ×3 (06:01→21:24)
[2023-03-21] MEDS: GABAPENTIN 400 MG CAPSULE PO SCH ×3 (06:01→21:23)
[2023-03-21] MEDS: PANTOPRAZOLE 20 MG TABLET PO SCH (06:01)
[2023-03-21] MEDS: IBUPROFEN 400 MG TABLET (FP) PO PRN (06:03)
[2023-03-21] MEDS: hydrOXYzine PAMOATE 25 MG CAPSULE (FP) PO PRN ×2 (06:55→21:23)
[2023-03-21 07:28] VITALS: RESP 18
[2023-03-21] MEDS: PRENATAL VITAMINS W/ FOLIC ACID TABLET (FP) PO SCH (09:37)
[2023-03-21] MEDS: IBUPROFEN 600 MG TABLET (FP) PO PRN ×2 (20:25→21:25)
[2023-03-21] MEDS: QUETIAPINE FUMARATE 200 MG, QUETIAPINE FUMARATE 50 MG PO SCH (21:23)
[2023-03-21] MEDS: THIAMINE HCL 100 MG TABLET (FP) PO SCH (21:23)
[2023-03-22] MEDS: GABAPENTIN 400 MG CAPSULE PO SCH (06:08)
[2023-03-22] MEDS: PANTOPRAZOLE 20 MG TABLET PO SCH (06:09)
[2023-03-22] MEDS: NICOTINE 10 MG CARTRIDGE (INHALER) IH PRN (06:10)
[2023-03-22] MEDS: NICOTINE POLACRILEX 4 MG GUM BUC PRN (06:10)
[2023-03-22] MEDS: hydrOXYzine PAMOATE 25 MG CAPSULE (FP) PO PRN (07:06)
[2023-03-22] MEDS: ACAMPROSATE CALCIUM 333 MG TABLET.DR PO SCH (07:07)
[2023-03-22] MEDS: IBUPROFEN 400 MG TABLET (FP) PO PRN (07:07)
[2023-03-22 07:38] VITALS: TEMP 96.9
[2023-03-22] MEDS: PRENATAL VITAMINS W/ FOLIC ACID TABLET (FP) PO SCH (09:19)
[2023-03-22 09:28] VITALS: BP 109/67; PULSE 77
== END 2023-03-22 09:25 | disposition home or self-care (01) | DRG 772 ==
LOC: YASAS 12:30 → Y5N 12:31
PROVIDERS: ADMIT Allergy & Immunology; ATTEND Psychiatry & Neurology Pain Medicine
PROC: HZ42ZZZ Group Counseling for Substance Abuse Treatment, Cognitive-Behavioral (ICD-10-PCS; principal; 2023-03-09)
DX: F10.20 Alcohol dependence, uncomplicated (principal); F14.20 Cocaine dependence, uncomplicated; F11.20 Opioid dependence, uncomplicated; F17.210 Nicotine dependence, cigarettes, uncomplicated; E88.09 Other disorders of plasma-protein metabolism, not elsewhere classified; G40.909 Epilepsy, unspecified, not intractable, without status epilepticus; G47.00 Insomnia, unspecified; F41.9 Anxiety disorder, unspecified; K21.9 Gastro-esophageal reflux disease without esophagitis; Z86.19 Personal history of other infectious and parasitic diseases; Z68.1 Body mass index [BMI] 19.9 or less, adult
CPT/HCPCS: 36415; 86803; 87389; 87522; Q0162